=== PATIENT | female | born 1960 | race Caucasian/White ===

== ENCOUNTER 2018-01-25 11:10 | Emergency (ER) | payer OTHER ==
[2018-01-25] MEDS: DIPHTH,PERTUSS(ACELL),TET TOX 0.5 ML DISP.SYRIN. VAX IM (11:41)
[2018-01-25] MEDS: LIDOCAINE WITH 8.4% SOD BICARB 3 ML DISP.SYRIN. INJ (11:42)
[2018-01-25] MEDS: MORPHINE SULFATE 10 MG/ML VIAL. IM (13:06)
== END 2018-01-25 13:55 | disposition home or self-care (01) ==
LOC: ER 11:10
DX: L02.416 Cutaneous abscess of left lower limb (principal); K58.9 Irritable bowel syndrome, unspecified; J44.9 Chronic obstructive pulmonary disease, unspecified; M79.7 Fibromyalgia; G89.29 Other chronic pain; Z88.1 Allergy status to other antibiotic agents; Z88.2 Allergy status to sulfonamides; Z91.040 Latex allergy status
CPT/HCPCS: 10060; 90471; 90715; 96372; 99284-25; J2270

== ENCOUNTER → 2018-01-25 | Outpatient (CLI) | payer OTHER ==
[~2018-01-25] MED LIST: CONTRAST GIVEN. MC
[2018-01-25] MEDS: IOHEXOL 240 MG/ML 50ML VIAL. PO (10:00)
[2018-01-25] MEDS: IOHEXOL 300 MG/ML 100ML VIAL. IV (10:59)
== END | disposition home or self-care (01) ==
LOC: CT 09:41
DX: K43.9 Ventral hernia without obstruction or gangrene (principal); K57.30 Diverticulosis of large intestine without perforation or abscess without bleeding; I70.0 Atherosclerosis of aorta
CPT/HCPCS: 74177; Q9966; Q9967

== ENCOUNTER → 2018-02-05 | Outpatient (CLI) | payer OTHER ==
[2018-02-05 14:12] LABS: ADD MAN DIFF? NO
[2018-02-05 14:17] LABS: BASO # 0.1 x10^3/uL (0.0-0.2); BASO % 1 % (0-3); EOS # 0.2 x10^3/uL (0.0-0.7); EOS % 3 % (0-3); HEMATOCRIT 38.8 % (36.0-47.0); HEMOGLOBIN 13.1 g/dL (12.0-15.5); LYMPH # 1.2 x10^3/uL (1.0-4.8); LYMPH % 18 % (24-48); MEAN CORPUSCULAR HEMOGLOBIN 29 pg (25-35); MEAN CORPUSCULAR HGB CONC 34 g/dL (31-37); MEAN CORPUSCULAR VOLUME 87 fL (79-100); MONO # 0.5 x10^3/uL (0.0-1.1); MONO % 8 % (0-9); NEUT # 4.9 x10^3uL (1.8-7.7); NEUT % 71 % (31-73); PLATELET COUNT 216 x10^3/uL (140-400); RED BLOOD COUNT 4.48 x10^6/uL (3.50-5.40); RED CELL DISTRIBUTION WIDTH 15.5 % (11.5-14.5); WHITE BLOOD COUNT 6.9 x10^3/uL (4.0-11.0)
[2018-02-05 14:44] LABS: ANION GAP 7 (6-14); BLOOD UREA NITROGEN 17 mg/dL (7-20); CARBON DIOXIDE 29 mmol/L (21-32); CHLORIDE 103 mmol/L (98-107); CREATININE 0.8 mg/dL (0.6-1.0); GFR 73.4; GLUCOSE 107 mg/dL (70-99); SODIUM 139 mmol/L (136-145)
== END | disposition home or self-care (01) ==
LOC: SURGPAT 13:32
DX: K43.9 Ventral hernia without obstruction or gangrene (principal)
CPT/HCPCS: 36415; 80048; 85025; 93005

== ENCOUNTER 2018-02-08 06:55 | Day surgery (SDC) | payer OTHER ==
[2018-02-08] MEDS ORDERED: PROCHLORPERAZINE 10 MG/2 ML VIAL. IV (07:00)
[2018-02-08] MEDS ORDERED: MORPHINE SULFATE 2 MG/ML DISP.SYRIN. IV (07:00)
[2018-02-08] MEDS ORDERED: ONDANSETRON PF 4 MG/2 ML VIAL. IV (07:00)
[2018-02-08] MEDS: IV RINGERS,LACTATED 1000ML 1,000 ML IV (07:00)
[2018-02-08] MEDS ORDERED: PROPOFOL 20 ML IV (08:06)
[2018-02-08] MEDS ORDERED: fentaNYL PF VIAL 100 MCG/2 ML VIAL ×3 (08:06→10:55)
[2018-02-08] MEDS ORDERED: ONDANSETRON PF 4 MG/2 ML VIAL. (08:06)
[2018-02-08] MEDS ORDERED: ROCURONIUM 50 MG/5 ML VIAL. ×2 (08:06→09:03)
[2018-02-08] MEDS ORDERED: LIDOCAINE 2% PF Vial for OR 5 ML VIAL. (08:06)
[2018-02-08] MEDS ORDERED: DEXAMETHASONE SOD PHOS 20 MG/5 ML VIAL. (08:06)
[2018-02-08] MEDS: BUPIVACAINE-EPI 0.25%-1:200000 50 ML VIAL. (08:53)
[2018-02-08] MEDS ORDERED: SEVOFLURANE > 120 MINUTES. IH (10:00)
[2018-02-08] MEDS ORDERED: GLYCOPYRROLATE 1 MG/5 ML VIAL. (10:34)
[2018-02-08] MEDS ORDERED: NEOSTIGMINE METHYLSULFATE 5 MG/5 ML SYRINGE. (10:34)
[2018-02-08] MEDS ORDERED: PROCHLORPERAZINE 10 MG/2 ML VIAL. (10:55)
[2018-02-08] MEDS: LIDOCAINE 1% PF 2 ML VIAL. ID (11:23)
[2018-02-08] MEDS: fentaNYL PF VIAL 100 MCG/2 ML VIAL IV ×2 (11:24→12:42)
[2018-02-08] MEDS ORDERED: oxyCODONE/APAP 5/325 1 TAB TABLET PO (11:30)
[2018-02-08] MEDS ORDERED: diphenhydrAMINE 50 MG/ML VIAL (12:02)
[2018-02-08] MEDS: diphenhydrAMINE 50 MG/ML VIAL IVP (12:05)
[2018-02-08] MEDS: oxyCODONE/APAP 5/325 1 TAB TABLET PO (12:41)
== END 2018-02-08 13:50 | disposition home or self-care (01) ==
LOC: SURG 06:55
DX: K43.0 Incisional hernia with obstruction, without gangrene (principal); Z79.899 Other long term (current) drug therapy; Z86.010 Personal history of colon polyps; M06.9 Rheumatoid arthritis, unspecified; J44.9 Chronic obstructive pulmonary disease, unspecified; F32.9 Major depressive disorder, single episode, unspecified; F98.8 Other specified behavioral and emotional disorders with onset usually occurring in childhood and adolescence; M79.7 Fibromyalgia; Z90.710 Acquired absence of both cervix and uterus; Z90.49 Acquired absence of other specified parts of digestive tract; Z98.890 Other specified postprocedural states; Z81.8 Family history of other mental and behavioral disorders; Z82.49 Family history of ischemic heart disease and other diseases of the circulatory system; Z82.0 Family history of epilepsy and other diseases of the nervous system; Z83.49 Family history of other endocrine, nutritional and metabolic diseases; F17.210 Nicotine dependence, cigarettes, uncomplicated; Z88.2 Allergy status to sulfonamides; Z88.1 Allergy status to other antibiotic agents; Z91.040 Latex allergy status; Z87.01 Personal history of pneumonia (recurrent); E66.9 Obesity, unspecified; Z68.41 Body mass index [BMI] 40.0-44.9, adult; K21.9 Gastro-esophageal reflux disease without esophagitis; Z90.79 Acquired absence of other genital organ(s); Z90.721 Acquired absence of ovaries, unilateral; M19.90 Unspecified osteoarthritis, unspecified site; F41.9 Anxiety disorder, unspecified; Z72.89 Other problems related to lifestyle; Z85.828 Personal history of other malignant neoplasm of skin
CPT/HCPCS: 49657; A7015; C1781; J0780; J1100; J1200; J1956; J2405; J2704; J2710; J3010; J3490; J7120

== ENCOUNTER 2018-04-11 08:46 | Emergency (ER) | payer OTHER ==
[~2018-04-11] VITALS: Ht 172.7 cm; Wt 121.1 kg
[~2018-04-11 08:46] MED LIST changes: +BIOT300T PO; +BUDE10.2 IH; +CEPH500T PO; +CETI10TA22 PO; +CHOL10003 PO; -CONTRAST GIVEN. MC; +CYAN100072 PO; +CYCL10TA2 PO; +DEXT30TA2 PO; +FLUO20TA11 PO; +FLUO40CA2 PO; +FURO40TA4 PO; +GABA600T2 PO; +HYDR-971 PO; +MULT1TAB52 PO; +OXYC-323 PO; +PANT20TA2 PO; +POTA10TA12 PO
[2018-04-11] MEDS ORDERED: ASPIRIN 325 MG TABLET PO ONE (09:15)
[2018-04-11] MEDS ORDERED: MORPHINE SULFATE 10 MG/ML VIAL. IV ONE (09:15)
[2018-04-11] MEDS ORDERED: diazePAM 5 MG TABLET PO ONE (09:15)
[2018-04-11 09:32] LABS: CALCIUM 8.7 mg/dL (8.5-10.1); CREATININE 0.9 mg/dL (0.6-1.0); GFR 64.1; POTASSIUM 4.2 mmol/L (3.5-5.1)
[2018-04-11 09:34] LABS: BASO # 0.1 x10^3/uL (0.0-0.2); BASO % 1 % (0-3); EOS # 0.4 x10^3/uL (0.0-0.7); EOS % 5 % (0-3); HEMATOCRIT 36.2 % (36.0-47.0); HEMOGLOBIN 12.5 g/dL (12.0-15.5); LYMPH # 1.7 x10^3/uL (1.0-4.8); LYMPH % 26 % (24-48); MEAN CORPUSCULAR HEMOGLOBIN 30 pg (25-35); MEAN CORPUSCULAR HGB CONC 35 g/dL (31-37); MEAN CORPUSCULAR VOLUME 86 fL (79-100); MONO # 0.8 x10^3/uL (0.0-1.1); MONO % 12 % (0-9); NEUT # 3.7 x10^3uL (1.8-7.7); NEUT % 56 % (31-73); PLATELET COUNT 222 x10^3/uL (140-400); RED CELL DISTRIBUTION WIDTH 15.3 % (11.5-14.5); WHITE BLOOD COUNT 6.5 x10^3/uL (4.0-11.0)
[2018-04-11 09:38] LABS: ALBUMIN 3.6 g/dL (3.4-5.0); MAGNESIUM 1.9 mg/dL (1.8-2.4); TOTAL BILIRUBIN 0.4 mg/dL (0.2-1.0); TOTAL PROTEIN 7.1 g/dL (6.4-8.2)
--- NOTE | 2018-04-11 09:46 | EKG ---
[facility] [address] [place] [address] Test Date: 2018-04-11 Test Time: 08:55:27 Pat Name: АНДРЕЙ HEATH Department: Room: Gender: F [employer]: NINO : 1960 Requested By: WINSTON DOUGLAS Order Number: [id number] Reading MD: Jj Venegas MD Measurements Intervals [place] Rate: 63 P: [place]: QRS: 34 QRSD: 88 T: 26 QT: 426 QTc: 439 Interpretive Statements SR Electronically Signed On 04-12-2018 15:24:34 CDT by Jj Venegas MD
--- NOTE | 2018-04-11 09:57 | RAD ---
EXAM: CHEST 1 VIEW History: Chest pain COMPARISON: 02/08/2015 TECHNIQUE: Single portable radiograph of the chest FINDINGS: The cardiac silhouette is unremarkable. Mild prominent appearing bilateral interstitial lung markings IMPRESSION: Mild prominent appearing bilateral interstitial lung markings likely mild congestive changes or chronic interstitial changes. Electronically signed by: Ricardo Corona MD (04/11/2018 9:53 AM) [id number]
--- NOTE | 2018-04-11 10:02 | RAD ---
Examination: 3 views of the cervical spine and 2 views of the left shoulder HISTORY: History of left-sided neck pain, shoulder pain COMPARISON: None available FINDINGS: Left shoulder: The humerus head is within the glenoid. The acromioclavicular joint grossly appears unremarkable. There is no acute fracture or dislocation identified. Cervical spine: The vertebral body heights are maintained. There is mild 3 mm retrolisthesis of C4 on C5 and 2 mm retrolisthesis of C6 on C7. Small anterior osteophyte formation identified at C3, C4, C5, C6 vertebral levels. There is moderate intervertebral disc height loss identified at C4-C5 vertebral levels. The facets are well aligned. The spinolaminar line is maintained. No evidence of prevertebral soft tissue swelling identified. Impression: 1. No acute osseous findings. 2. Moderate multilevel degenerative changes cervical spine as described above. Electronically signed by: Ricardo Corona MD (04/11/2018 9:58 AM) [id number]
--- NOTE | 2018-04-11 10:33 | PHYS DOC ---
Past Medical History Past Medical History: COPD, Fibromyalgia, IBS, Other Additional Past Medical Histor: CHRONIC BACK PAIN (DDD) Past Surgical History: Cholecystectomy, , Hysterectomy, Other Additional Past Surgical Histo: VASCULAR RIGHT LEG, ABD TUMOR, HERNIA (LOWER ABD) Alcohol Use: Occasionally Drug Use: None Adult General Chief Complaint Chief Complaint: CHEST PAIN [facility] HPI Patient is a 57 year old female with history of COPD, current smoker, fibromyalgia, who presents today complaining of a sharp 7 out of 10 pain around the left shoulder radiating to the neck intermittently for 10 days, patient states the pain began after she started moving items around her house as she is preparing to move to [place] in April. Patient states the pain is worse when she is lifting heavy items. Patient denies anything relieving the pain. Patient denies any actual trauma. She states she took some aspirin and other NSAIDs which helped. Patient denies any chest pain or shortness of breath. Denies any fever. Denies any nausea, vomiting. Denies any cough or congestion. Denies any unilateral leg pain or swelling, denies any use of hormones, denies any recent hospitalization/surgeries/trauma, denies any personal or family history of PEs. Denies any hemoptysis. She states she does not know if her fibromyalgia has gotten into her left shoulder. PCP:HAYES Martínez Review of Systems Review of Systems Constitutional: Denies fever or chills [] Eyes: Denies change in visual acuity, redness, or eye pain [] HENT: Denies nasal congestion or sore throat [] Respiratory: Denies cough or shortness of breath [] Cardiovascular: No additional information not addressed in HPI [] GI: Denies abdominal pain, nausea, vomiting, bloody stools or diarrhea [] : Denies dysuria or hematuria [] Musculoskeletal: Reports left shoulder pain Integument: Denies rash or skin lesions [] Neurologic: Denies headache, focal weakness or sensory changes [] All other systems were reviewed and found to be within normal limits, except as documented in this note. Current Medications Current Medications Current Medications Medications (Trade) Dose Ordered Sig/Peter Start Time Stop Time Status Last Admin Dose Admin Aspirin (Shukri Aspirin) 325 mg 1X ONCE 04/11/18 09:15 04/11/18 09:16 DC 04/11/18 10:36 325 MG Diazepam (Valium) 5 mg 1X ONCE 04/11/18 09:15 04/11/18 09:16 DC 04/11/18 10:36 5 MG Morphine Sulfate (Morphine Sulfate) 5 mg 1X ONCE 04/11/18 09:15 04/11/18 09:16 DC 04/11/18 10:37 5 MG Allergies Allergies Allergies Coded Allergies Type Severity Reaction Last Updated Verified cephalexin Allergy Severe Nausea and Vomiting 02/05/18 Yes Sulfa (Sulfonamide Antibiotics) Allergy Intermediate 02/08/15 No clindamycin Allergy Intermediate 01/25/18 Yes latex Allergy Intermediate 02/08/15 No Physical Exam Physical Exam Constitutional: Well developed, well nourished, no acute distress, non-toxic appearance. [] HENT: Normocephalic, atraumatic, bilateral external ears normal, oropharynx moist, no oral exudates, nose normal. [] Eyes: PERRLA, EOMI, conjunctiva normal, no discharge. [] Neck: Normal range of motion, no tenderness, supple, no stridor. [] Cardiovascular:Heart rate regular rhythm, no murmur [] Lungs & Thorax: Bilateral breath sounds clear to auscultation [] Abdomen: Bowel sounds normal, soft, no tenderness, no masses, no pulsatile masses. [] Skin: Warm, dry, no erythema, no rash. [] Back: No tenderness, no CVA tenderness. [] Extremities: No tenderness, no cyanosis, no clubbing, ROM intact, no edema. Patient's pain seems to be relieved when we raise her left upper extremity above her head. Neurologic: Alert and oriented X 3, normal motor function, normal sensory function, no focal deficits noted. [] Psychologic: Appeared anxious on arrival but settled down when i started talking to her. Current Patient Data Vital Signs Vital Signs Date Time Temp Pulse Resp B/P (MAP) Pulse Ox O2 Delivery O2 Flow Rate FiO2 04/11/18 10:37 18 97 Room Air 04/11/18 08:54 97.6 63 157/91 (113) 97.6 Lab Values Laboratory Tests Test 04/11/18 09:11 White Blood Count 6.5 x10^3/uL (4.0-11.0) Red Blood Count 4.20 x10^6/uL (3.50-5.40) Hemoglobin 12.5 g/dL (12.0-15.5) Hematocrit 36.2 % (36.0-47.0) Mean Corpuscular Volume 86 fL (79-100) Mean Corpuscular Hemoglobin 30 pg (25-35) Mean Corpuscular Hemoglobin Concent 35 g/dL (31-37) Red Cell Distribution Width 15.3 % (11.5-14.5) H Platelet Count 222 x10^3/uL (140-400) Neutrophils (%) (Auto) 56 % (31-73) Lymphocytes (%) (Auto) 26 % (24-48) Monocytes (%) (Auto) 12 % (0-9) H Eosinophils (%) (Auto) 5 % (0-3) H Basophils (%) (Auto) 1 % (0-3) Neutrophils # (Auto) 3.7 x10^3uL (1.8-7.7) Lymphocytes # (Auto) 1.7 x10^3/uL (1.0-4.8) Monocytes # (Auto) 0.8 x10^3/uL (0.0-1.1) Eosinophils # (Auto) 0.4 x10^3/uL (0.0-0.7) Basophils # (Auto) 0.1 x10^3/uL (0.0-0.2) Sodium Level 140 mmol/L (136-145) Potassium Level 4.2 mmol/L (3.5-5.1) Chloride Level 104 mmol/L (98-107) Carbon Dioxide Level 29 mmol/L (21-32) Anion Gap 7 (6-14) Blood Urea Nitrogen 15 mg/dL (7-20) Creatinine 0.9 mg/dL (0.6-1.0) Estimated GFR (Cockcroft-Gault) 64.1 BUN/Creatinine Ratio 17 (6-20) Glucose Level 118 mg/dL (70-99) H Calcium Level 8.7 mg/dL (8.5-10.1) Magnesium Level 1.9 mg/dL (1.8-2.4) Total Bilirubin 0.4 mg/dL (0.2-1.0) Aspartate Amino Transferase (AST) 15 U/L (15-37) Alanine Aminotransferase (ALT) 22 U/L (14-59) Alkaline Phosphatase 77 U/L (46-116) Creatine Kinase 78 U/L (26-192) Creatine Kinase MB (Mass) 0.7 ng/mL (0.0-3.6) Creatine Kinase MB Relative Index 0.9 % (0-4) Troponin I Quantitative < 0.017 ng/mL (0.000-0.055) YV-Gsl-Y-Type Natriuretic Peptide 121 pg/mL (0-124) Total Protein 7.1 g/dL (6.4-8.2) Albumin 3.6 g/dL (3.4-5.0) Albumin/Globulin Ratio 1.0 (1.0-1.7) Thyroid Stimulating Hormone (TSH) 1.942 uIU/mL (0.358-3.74) Ethyl Alcohol Level < 10 mg/dL (0-10) Laboratory Tests 04/11/18 09:11 Laboratory Tests 04/11/18 09:11 EKG EKG 08:[address] Lopez sinus rhythm heart rate 63 no STEMI Radiology/Procedures Radiology/Procedures []PROCEDURE: SHOULDER 2+V LEFT Examination: 3 views of the cervical spine and 2 views of the left shoulder HISTORY: History of left-sided neck pain, shoulder pain COMPARISON: None available FINDINGS: Left shoulder: The humerus head is within the glenoid. The acromioclavicular joint grossly appears unremarkable. There is no acute fracture or dislocation identified. Cervical spine: The vertebral body heights are maintained. There is mild 3 mm retrolisthesis of C4 on C5 and 2 mm retrolisthesis of C6 on C7. Small anterior osteophyte formation identified at C3, C4, C5, C6 vertebral levels. There is moderate intervertebral disc height loss identified at C4-C5 vertebral levels. The facets are well aligned. The spinolaminar line is maintained. No evidence of prevertebral soft tissue swelling identified. Impression: 1. No acute osseous findings. 2. Moderate multilevel degenerative changes cervical spine as described above. Electronically signed by: Ricardo Corona MD (04/11/2018 9:58 AM) [id number] DICTATED and SIGNED BY: RICARDO CORONA MD DATE: 04/11/18 0954 PROCEDURE: PORTABLE CHEST 1V EXAM: CHEST 1 VIEW History: Chest pain COMPARISON: 02/08/2015 TECHNIQUE: Single portable radiograph of the chest FINDINGS: The cardiac silhouette is unremarkable. Mild prominent appearing bilateral interstitial lung markings IMPRESSION: Mild prominent appearing bilateral interstitial lung markings likely mild congestive changes or chronic interstitial changes. Electronically signed by: Ricardo Corona MD (04/11/2018 9:53 AM) [id number] DICTATED and SIGNED BY: RICARDO CORONA MD DATE: 04/11/18 0952 Course & Med Decision Making Course & Med Decision Making Pertinent Labs and Imaging studies reviewed. (See chart for details) This is a 57-year-old female patient presenting to the ED today complaining of left shoulder pain, no known injury, patient has been moving. Patient's cardiac workup as well as Reglan labs are negative for any acute findings, left shoulder x-ray, chest x-rays were negative for any acute findings, cervical spine x-ray was negative for any acute findings, noted for DJD of the cervical spine. Pain appears musculoskeletal. Heart score is 1. Patient was encouraged to consider smoking cessation. Patient was discharged with instructions to follow-up with her own PCP. Discharged with diclofenac, Valium, and Medrol Dosepak. Dragon Disclaimer Dragon Disclaimer This electronic medical record was generated, in whole or in part, using a voice recognition dictation system. Departure Departure Impression: Primary Impression: DJD (degenerative joint disease) of cervical spine Additional Impressions: Neck pain Left shoulder pain Smoking addiction Disposition: 01 HOME, SELF-CARE Condition: STABLE Referrals: RADHA MARTÍNEZ (PCP) Follow-up in the next 7 days Patient Instructions: Arthritis, Degenerative-Brief, Shoulder Pain, Easy-to- Read, Smoking Cessation Additional Instructions: You were evaluated in the emergency room and noted to have arthritis in your neck. Please follow-up with your primary care doctor. Your work up in the emergency room was negative for any acute findings. Take the prescribed medications as ordered. Come back to the emergency room at any point symptoms worsen. Please consider smoking cessation. Scripts Diclofenac Sodium (DICLOFENAC SODIUM) 50 Mg Tablet.dr 1 TAB PO BID, #20 TAB 0 Refills Prov: [employer] 04/11/18 Methylprednisolone (MEDROL) 4 Mg Tab.ds.pk 1 PKG PO UD, #1 PKG Prov: [employer] 04/11/18 Diazepam (VALIUM) 5 Mg Tablet 5 MG PO TID, #15 TAB Prov: [employer] 04/11/18 Problem Qualifiers Primary Impression: DJD (degenerative joint disease) of cervical spine Spinal osteoarthritis complication: unspecified spinal osteoarthritis Qualified Codes: M47.812 - Spondylosis without myelopathy or radiculopathy, cervical region Additional Impressions: Left shoulder pain Chronicity: acute Qualified Codes: M25.512 - Pain in left shoulder WINSTON DOUGLAS APRN Apr 11, 2018 10:33
[2018-04-11] MEDS ORDERED: DICL50TA4 PO (10:46)
[2018-04-11] MEDS ORDERED: DIAZ5TAB PO (10:46)
[2018-04-11] MEDS ORDERED: METH4TAB2 PO (10:46)
[2018-04-11 10:58] LABS: BILIRUBIN,URINE NEGATIVE (NEG); CLARITY,URINE CLEAR; COLOR,URINE YELLOW; NITRITE,URINE NEGATIVE (NEG); PROTEIN,URINE NEGATIVE (NEG-TRACE); UROBILINOGEN,URINE 0.2 mg/dL (0.2 mg/dL)
[2018-04-11 11:00] VITALS: BP 184/135
[2018-04-11 11:05] LABS: AMPHETAMINE/METHAMPHETAMINE POS (NEG); BARBITURATES NEG (NEG); BENZODIAZEPINES NEG (NEG); CANNABINOIDS NEG (NEG); COCAINE NEG (NEG); METHADONE NEG (NEG); OPIATES NEG (NEG); PHENCYCLIDINE NEG (NEG)
[2018-04-11 11:19] LABS: BACTERIA,URINE 0 /HPF (0-FEW); RBC,URINE 0 /HPF (0-2); SQUAMOUS EPITHELIAL CELL,UR MOD /LPF
== END 2018-04-11 11:15 | disposition home or self-care (01) ==
LOC: ER 08:46
DX: M47.892 Other spondylosis, cervical region (principal); M25.512 Pain in left shoulder; F17.200 Nicotine dependence, unspecified, uncomplicated; J44.9 Chronic obstructive pulmonary disease, unspecified; Z90.49 Acquired absence of other specified parts of digestive tract; Z90.710 Acquired absence of both cervix and uterus; Z98.890 Other specified postprocedural states; Z88.2 Allergy status to sulfonamides; Z88.1 Allergy status to other antibiotic agents; Z91.040 Latex allergy status
CPT/HCPCS: 36415; 71045; 72040; 73030; 80053; 80307; 81001; 82553; 83735; 83880; 84443; 84484; 85025; 87086; 93005; 96374; 99285; G0480; J2270; G0479

== ENCOUNTER 2018-12-28 13:39 | Inpatient (IN) | payer OTHER ==
[~2018-12-28] VITALS: Ht 172.7 cm; Wt 117.7 kg
[~2018-12-28 13:39] MED LIST changes: -BIOT300T PO; +BIOT300T4 PO; +DIAZ5TAB PO; +DICL50TA4 PO; -GABA600T2 PO; +GABA600T7 PO; +HYDR-3164 PO; -HYDR-971 PO; +METH4TAB2 PO; -OXYC-323 PO; +OXYC1TAB15 PO
[2018-12-28] MEDS ORDERED: IV NORMAL SALINE 1000ML BAG 1,000 ML IV SCH (14:24)
[2018-12-28] MEDS ORDERED: ONDANSETRON PF 4 MG/2 ML VIAL. IV ONE (14:30)
--- NOTE | 2018-12-28 14:31 | PHYS DOC ---
Past Medical History Past Medical History: COPD, Fibromyalgia, IBS, Other Additional Past Medical Histor: CHRONIC BACK PAIN (DDD) Past Surgical History: Cholecystectomy, , Hysterectomy, Other Additional Past Surgical Histo: VASCULAR RIGHT LEG, ABD TUMOR, HERNIA (LOWER ABD) Alcohol Use: Occasionally Drug Use: None Adult General Chief Complaint Chief Complaint: CONSTIPATION HPI HPI Patient is a 58-year-old female who presents with complaint of lower abdominal pain and constipation. Patient states that she has not had a normal bowel movement for 2 weeks and states that she is not been really passing any gas. She states that she was able to pass a small amount of stool today because she is been taking numerous medications to soften her stools. She states that yesterday when she was in the store she had a syncopal episode. She denies any chest pain or shortness of breath. She does complain of lower abdominal pain that she describes as stabbing, feeling like it stems from her suprapubic region down into her rectum. She rates pain currently at an 8 out of 10 and states that at times it goes up to a 10 out of 10. She admits to nausea but has had no vomiting . Review of Systems Review of Systems Constitutional: Denies fever or chills [] Respiratory: Denies cough or shortness of breath [] Cardiovascular: No additional information not addressed in HPI [] GI: Complains of abdominal pain with nausea. Denies vomiting or diarrhea [] : Positive urinary urgency and mild dysuria[] Neurologic: Denies headache, focal weakness or sensory changes [] All other systems were reviewed and found to be within normal limits, except as documented in this note. Current Medications Current Medications Current Medications Medications (Trade) Dose Ordered Sig/Peter Start Time Stop Time Status Last Admin Dose Admin Ciprofloxacin/ Dextrose 200 ml @ 200 mls/hr 1X ONCE 12/28/18 16:15 12/28/18 17:14 Fentanyl Citrate (Fentanyl 2ml Vial) 50 mcg PRN Q15MIN PRN 12/28/18 14:30 12/29/18 14:29 12/28/18 14:40 50 MCG Info (CONTRAST GIVEN -- Rx MONITORING) 1 each PRN DAILY PRN 12/28/18 14:45 12/30/18 14:44 Iohexol (Omnipaque 300 Mg/ml) 75 ml 1X ONCE 12/28/18 14:45 12/28/18 14:46 DC 12/28/18 15:29 75 ML Metronidazole 100 ml @ 100 mls/hr 1X ONCE 12/28/18 16:15 12/28/18 17:14 Ondansetron HCl (Zofran) 4 mg 1X ONCE 12/28/18 14:30 12/28/18 14:31 DC 12/28/18 14:39 4 MG Sodium Chloride 1,000 ml @ 1,000 mls/hr Q1H 12/28/18 14:24 12/28/18 15:23 DC 12/28/18 14:37 1,000 MLS/HR Allergies Allergies Allergies Coded Allergies Type Severity Reaction Last Updated Verified cephalexin Allergy Severe Nausea and Vomiting 02/05/18 Yes Sulfa (Sulfonamide Antibiotics) Allergy Intermediate 02/08/15 No clindamycin Allergy Intermediate 01/25/18 Yes latex Allergy Intermediate 02/08/15 No Physical Exam Physical Exam Constitutional: Well developed, well nourished, no acute distress, non-toxic appearance. [] HENT: Normocephalic, atraumatic, bilateral external ears normal, oropharynx moist, no oral exudates, nose normal. [] Eyes: PERRLA, EOMI, conjunctiva normal, no discharge. [] Neck: Normal range of motion, no tenderness, supple, no stridor. [] Cardiovascular: Regular rate and rhythm[] Lungs & Thorax: Bilateral breath sounds clear to auscultation [] Abdomen: Bowel sounds normal, soft, with lower abdominal tenderness. [] Skin: Warm, dry, no erythema, no rash. [] Extremities: No tenderness, no cyanosis, no clubbing, ROM intact. [] Neurologic: Alert and oriented X 3, no focal deficits noted. [] Current Patient Data Vital Signs Vital Signs Date Time Temp Pulse Resp B/P (MAP) Pulse Ox O2 Delivery O2 Flow Rate FiO2 12/28/18 14:40 20 95 Room Air 12/28/18 14:00 98.7 86 151/76 (101) 98.7 Lab Values Laboratory Tests Test 12/28/18 14:00 12/28/18 14:30 Urine Collection Type Unknown Urine Color Yellow Urine Clarity Clear Urine pH 6.0 Urine Specific [place] 1.010 Urine Protein Negative mg/dL (NEG-TRACE) Urine Glucose (UA) Negative mg/dL (NEG) Urine Ketones (Stick) Negative mg/dL (NEG) Urine Blood Negative (NEG) Urine Nitrite Negative (NEG) Urine Bilirubin Negative (NEG) Urine Urobilinogen Dipstick 1.0 mg/dL (0.2 mg/dL) Urine Leukocyte Esterase Moderate (NEG) Urine RBC 0 /HPF (0-2) Urine WBC 5-10 /HPF (0-4) Urine Squamous Epithelial Cells Mod /LPF Urine Bacteria Few /HPF (0-FEW) White Blood Count 11.6 x10^3/uL (4.0-11.0) H Red Blood Count 3.90 x10^6/uL (3.50-5.40) Hemoglobin 11.6 g/dL (12.0-15.5) L Hematocrit 33.4 % (36.0-47.0) L Mean Corpuscular Volume 86 fL (79-100) Mean Corpuscular Hemoglobin 30 pg (25-35) Mean Corpuscular Hemoglobin Concent 35 g/dL (31-37) Red Cell Distribution Width 14.4 % (11.5-14.5) Platelet Count 272 x10^3/uL (140-400) Neutrophils (%) (Auto) 74 % (31-73) H Lymphocytes (%) (Auto) 14 % (24-48) L Monocytes (%) (Auto) 11 % (0-9) H Eosinophils (%) (Auto) 2 % (0-3) Basophils (%) (Auto) 1 % (0-3) Neutrophils # (Auto) 8.5 x10^3uL (1.8-7.7) H Lymphocytes # (Auto) 1.6 x10^3/uL (1.0-4.8) Monocytes # (Auto) 1.2 x10^3/uL (0.0-1.1) H Eosinophils # (Auto) 0.2 x10^3/uL (0.0-0.7) Basophils # (Auto) 0.1 x10^3/uL (0.0-0.2) Sodium Level 132 mmol/L (136-145) L Potassium Level 3.5 mmol/L (3.5-5.1) Chloride Level 95 mmol/L (98-107) L Carbon Dioxide Level 27 mmol/L (21-32) Anion Gap 10 (6-14) Blood Urea Nitrogen 10 mg/dL (7-20) Creatinine 0.9 mg/dL (0.6-1.0) Estimated GFR (Cockcroft-Gault) 63.9 BUN/Creatinine Ratio 11 (6-20) Glucose Level 123 mg/dL (70-99) H Calcium Level 8.5 mg/dL (8.5-10.1) Total Bilirubin 0.8 mg/dL (0.2-1.0) Aspartate Amino Transferase (AST) 25 U/L (15-37) Alanine Aminotransferase (ALT) 30 U/L (14-59) Alkaline Phosphatase 104 U/L (46-116) Total Protein 7.3 g/dL (6.4-8.2) Albumin 3.2 g/dL (3.4-5.0) L Albumin/Globulin Ratio 0.8 (1.0-1.7) L Lipase 70 U/L (73-393) L Laboratory Tests 12/28/18 14:30 Laboratory Tests 12/28/18 14:30 EKG EKG [] Radiology/Procedures Radiology/Procedures [] Impressions: PROCEDURE: CT ABD PELV W/ IV CONTRST ONLY CT of the abdomen and pelvis with contrast, 12/28/2018: HISTORY: Lower abdominal pain Multidetector CT imaging was performed following an IV bolus injection of iodinated contrast material. No oral contrast material was administered for this study. Comparison is made to an exam from 01/25/2018. The gallbladder is surgically absent. No hepatic abnormality is seen. The pancreas shows no abnormality. The spleen is of normal size. The right kidney is malrotated. There is a moderate sized cyst arising from the lower pole the right kidney. The left renal pelvis and proximal left ureter are mildly prominent compared to the previous study. This is probably related to extrinsic compression by the left lower quadrant inflammatory process, to be described. Aortic calcific plaquing is present without evidence of aneurysm. Several small periaortic lymph nodes are noted without evidence of pathologic enlargement. The uterus is surgically absent. Sigmoid diverticula are present. There is severe mural thickening involving the proximal to mid sigmoid colon. There is moderate adjacent streaky increased density in the paracolic fat compatible with inflammation. The findings suggest acute diverticulitis. A discrete drainable paracolic abscess is not visible. There is a moderate amount of gas and stool in the colon proximal to this level. There are surgical sutures related to the colon in the hepatic flexure region. The small bowel loops are not dilated. No free fluid or free air is evident in the abdomen or pelvis. There has been interval surgical repair of the large ventral hernia seen on 01/25/2018. A surgical mesh is in place. There is residual anterior bulging of the fascia along the superior aspect of the mesh. Streaky increased density in the subcutaneous soft tissues at this level is compatible with scarring. There is a moderate thoracolumbar scoliosis with moderate associated multilevel degenerative change. IMPRESSION: 1. Sigmoid diverticulosis with extensive mural thickening and paracolic inflammation related to the proximal to mid sigmoid colon, compatible with acute diverticulitis. The possibility of underlying colonic neoplasm cannot be excluded. 2. Interval repair of the patient's large ventral hernia since 01/25/2018. PQRS Compliance Statement: One or more of the following individualized dose reduction techniques were utilized for this examination: 1. Automated exposure control 2. Adjustment of the mA and/or kV according to patient size 3. Use of iterative reconstruction technique Electronically signed by: Jose Contreras MD (12/28/2018 4:03 PM) [facility] Course & Med Decision Making Course & Med Decision Making Pertinent Labs and Imaging studies reviewed. (See chart for details) [] Dragon Disclaimer Dragon Disclaimer This electronic medical record was generated, in whole or in part, using a voice recognition dictation system. Departure Departure Impression: Primary Impression: Acute diverticulitis Additional Impression: Urinary tract infection Disposition: 09 ADMITTED INPATIENT Admitting Physician: Adan Landis Condition: IMPROVED Referrals: RADHA MARTÍNEZ (PCP) Problem Qualifiers Additional Impression: Urinary tract infection Urinary tract infection type: site unspecified Hematuria presence: without hematuria Qualified Codes: N39.0 - Urinary tract infection, site not specified CADY MONTEIRO Jr. DO December 28, 2018 14:31
[2018-12-28 14:35] LABS: BILIRUBIN,URINE NEGATIVE (NEG); CLARITY,URINE CLEAR; COLOR,URINE YELLOW; NITRITE,URINE NEGATIVE (NEG); PROTEIN,URINE NEGATIVE (NEG-TRACE)
[2018-12-28 14:38] LABS: BASO # 0.1 x10^3/uL (0.0-0.2); BASO % 1 % (0-3); EOS # 0.2 x10^3/uL (0.0-0.7); EOS % 2 % (0-3); HEMATOCRIT 33.4 % (36.0-47.0); HEMOGLOBIN 11.6 g/dL (12.0-15.5); LYMPH # 1.6 x10^3/uL (1.0-4.8); LYMPH % 14 % (24-48); MEAN CORPUSCULAR HEMOGLOBIN 30 pg (25-35); MEAN CORPUSCULAR HGB CONC 35 g/dL (31-37); MEAN CORPUSCULAR VOLUME 86 fL (79-100); MONO # 1.2 x10^3/uL (0.0-1.1); MONO % 11 % (0-9); NEUT # 8.5 x10^3uL (1.8-7.7); NEUT % 74 % (31-73); PLATELET COUNT 272 x10^3/uL (140-400); RED CELL DISTRIBUTION WIDTH 14.4 % (11.5-14.5); WHITE BLOOD COUNT 11.6 x10^3/uL (4.0-11.0)
[2018-12-28] MEDS: fentaNYL PF VIAL 100 MCG/2 ML VIAL IV PRN ×2 (14:40→16:22)
[2018-12-28 14:43] LABS: BACTERIA,URINE FEW /HPF (0-FEW); RBC,URINE 0 /HPF (0-2); SQUAMOUS EPITHELIAL CELL,UR MOD /LPF
[2018-12-28] MEDS ORDERED: IOHEXOL 300 MG/ML 100ML VIAL. IV ONE (14:45)
[2018-12-28] MEDS ORDERED: CONTRAST GIVEN. MC PRN (14:45)
[2018-12-28 14:55] LABS: CALCIUM 8.5 mg/dL (8.5-10.1); CREATININE 0.9 mg/dL (0.6-1.0); GFR 63.9; POTASSIUM 3.5 mmol/L (3.5-5.1)
[2018-12-28 15:02] LABS: ALBUMIN 3.2 g/dL (3.4-5.0); ALBUMIN/GLOBULIN RATIO 0.8 (1.0-1.7); TOTAL BILIRUBIN 0.8 mg/dL (0.2-1.0); TOTAL PROTEIN 7.3 g/dL (6.4-8.2)
--- NOTE | 2018-12-28 16:07 | RAD ---
CT of the abdomen and pelvis with contrast, 12/28/2018: HISTORY: Lower abdominal pain Multidetector CT imaging was performed following an IV bolus injection of iodinated contrast material. No oral contrast material was administered for this study. Comparison is made to an exam from 01/25/2018. The gallbladder is surgically absent. No hepatic abnormality is seen. The pancreas shows no abnormality. The spleen is of normal size. The right kidney is malrotated. There is a moderate sized cyst arising from the lower pole the right kidney. The left renal pelvis and proximal left ureter are mildly prominent compared to the previous study. This is probably related to extrinsic compression by the left lower quadrant inflammatory process, to be described. Aortic calcific plaquing is present without evidence of aneurysm. Several small periaortic lymph nodes are noted without evidence of pathologic enlargement. The uterus is surgically absent. Sigmoid diverticula are present. There is severe mural thickening involving the proximal to mid sigmoid colon. There is moderate adjacent streaky increased density in the paracolic fat compatible with inflammation. The findings suggest acute diverticulitis. A discrete drainable paracolic abscess is not visible. There is a moderate amount of gas and stool in the colon proximal to this level. There are surgical sutures related to the colon in the hepatic flexure region. The small bowel loops are not dilated. No free fluid or free air is evident in the abdomen or pelvis. There has been interval surgical repair of the large ventral hernia seen on 01/25/2018. A surgical mesh is in place. There is residual anterior bulging of the fascia along the superior aspect of the mesh. Streaky increased density in the subcutaneous soft tissues at this level is compatible with scarring. There is a moderate thoracolumbar scoliosis with moderate associated multilevel degenerative change. IMPRESSION: 1. Sigmoid diverticulosis with extensive mural thickening and paracolic inflammation related to the proximal to mid sigmoid colon, compatible with acute diverticulitis. The possibility of underlying colonic neoplasm cannot be excluded. 2. Interval repair of the patient's large ventral hernia since 01/25/2018. PQRS Compliance Statement: One or more of the following individualized dose reduction techniques were utilized for this examination: 1. Automated exposure control 2. Adjustment of the mA and/or kV according to patient size 3. Use of iterative reconstruction technique Electronically signed by: Jose Contreras MD (12/28/2018 4:03 PM) [facility]
[2018-12-28] MEDS ORDERED: CIPROFLOXACIN 400MG PREMIX 200 ML IV ONE (16:15)
[2018-12-28] MEDS ORDERED: ACETAMINOPHEN 325 MG TABLET. PO PRN (16:30)
[2018-12-28] MEDS ORDERED: ONDANSETRON PF 4 MG/2 ML VIAL. IV PRN ×2 (16:30→19:30)
[2018-12-28] MEDS: IV NORMAL SALINE 1000ML BAG 1,000 ML IV SCH (17:21)
[2018-12-28] MEDS: MORPHINE SULFATE 4 MG/ML VIAL. IV PRN ×3 (18:08→23:13)
[2018-12-28 19:00] VITALS: BP 106/55
--- NOTE | 2018-12-28 19:10 | NUR ---
The patient, АНДРЕЙ HEATH, 58 y/o, F admitted by ETHAN CARR MD, was given written information regarding hospital policies, unit procedures and contact persons. Valuables were checked and left with her.
--- NOTE | 2018-12-28 19:18 | PDOC1 ---
History and Physical Date of Admission Date of Admission DATE: 12/28/18 TIME: 19:17 Identification/Chief Complaint Chief Complaint SEEN IN ER, 58-year-old female who presents with complaint of lower abdominal pain and constipation. Patient states that she has not had a normal bowel movement for 2 weeks and states that she is not been really passing any gas. She states that she was able to pass a small amount of stool today because she is been taking numerous medications to soften her stools. She states that yesterday when she was in the store she had a syncopal episode. She denies any chest pain or shortness of breath. She does complain of lower abdominal pain that she describes as stabbing, feeling like it stems from her suprapubic region down into her rectum. C/T C/W ACUTE DIVERTICULITIS rates pain currently at an 8 out of 10 and states that at times it goes up to a 10 out of 10. She admits to nausea but has had no vomiting. Past Medical History Past Medical History Past Medical History Past Medical History: COPD, Fibromyalgia, IBS, Other Additional Past Medical Histor: CHRONIC BACK PAIN (DDD) Past Surgical History: Cholecystectomy, , Hysterectomy, Other Additional Past Surgical Histo: VASCULAR RIGHT LEG, ABD TUMOR, HERNIA (LOWER ABD) Alcohol Use: Occasionally Drug Use: None SMOKES LIGHTLY FHX OBESITY POS Rheumatologic: Fibromyalgia Infectious disease: No pertinent hx Past Surgical History Past Surgical History: Other Family History Family History: High Cholestrol, Hypertension Social History Smoke: <1 pack per day ALCOHOL: occassional Drugs: None Current Problem List Problem List Problems Medical Problems: (1) Acute diverticulitis Status: Acute (2) Urinary tract infection Status: Acute Current Medications Current Medications Current Medications Fentanyl Citrate (Fentanyl 2ml Vial) 50 mcg PRN Q15MIN PRN IV PAIN GREATER THAN 3/10 Last administered on 12/28/18at 16:22; Start 12/28/18 at 14:30; Stop 12/29/18 at 14:29 Sodium Chloride 1,000 ml @ 1,000 mls/hr Q1H IV Last administered on 12/28/18at 14:37; Start 12/28/18 at 14:24; Stop 12/28/18 at 15:23; Status DC Ondansetron HCl (Zofran) 4 mg 1X ONCE IV Last administered on 12/28/18at 14:39; Start 12/28/18 at 14:30; Stop 12/28/18 at 14:31; Status DC Iohexol (Omnipaque 300 Mg/ml) 75 ml 1X ONCE IV Last administered on 12/28/18 15:29; Start 12/28/18 at 14:45; Stop 12/28/18 at 14:46; Status DC Info (CONTRAST GIVEN -- Rx MONITORING) 1 each PRN DAILY PRN MC SEE COMMENTS; Start 12/28/18 at 14:45; Stop 12/30/18 at 14:44 Ciprofloxacin/ Dextrose 200 ml @ 200 mls/hr 1X ONCE IV Last administered on 12/28/18at 16:24; Start 12/28/18 at 16:15; Stop 12/28/18 at 17:14; Status DC Metronidazole 100 ml @ 100 mls/hr 1X ONCE IV Last administered on 12/28/18 16:27; Start 12/28/18 at 16:15; Stop 12/28/18 at 17:14; Status DC Ondansetron HCl (Zofran) 4 mg PRN Q8HRS PRN IV NAUSEA/VOMITING; Start 12/28/18 at 16:30; Stop 12/29/18 at 16:29 Morphine Sulfate (Morphine Sulfate) 4 mg PRN Q2HR PRN IV PAIN Last administered on 12/28/18 18:08; Start 12/28/18 at 16:30; Stop 12/29/18 at 16:29 Sodium Chloride 1,000 ml @ 125 mls/hr Q8H IV Last administered on 12/28/18 17:21; Start 12/28/18 at 16:30; Stop 12/29/18 at 16:29 Acetaminophen (Tylenol) 650 mg PRN Q4HRS PRN PO FEVER; Start 12/28/18 at 16:30; Stop 12/29/18 at 16:29 Active Scripts Active Diclofenac Sodium 50 Mg Tablet.dr 1 Tab PO BID Medrol (Methylprednisolone) 4 Mg Tab.ds.pk 1 Pkg PO UD Valium (Diazepam) 5 Mg Tablet 5 Mg PO TID Reported Percocet 5-325 Mg Tablet (Oxycodone/Acetaminophen) 1 Each Tablet 1-2 Tab PO Q4HRS Potassium Chloride 10 Meq Tablet.er 10 Meq PO DAILY Multivitamins (Multivitamin) 1 Each Tablet 1 Tab PO DAILY Zyrtec (Cetirizine Hcl) 10 Mg Tablet 1 Tab PO DAILY Protonix (Pantoprazole Sodium) 20 Mg Tablet.dr 40 Mg PO DAILY Gabapentin 600 Mg Tablet 600 Mg PO TID Furosemide 40 Mg Tablet 1 Tab PO DAILY Fluoxetine Hcl 40 Mg Capsule 1 Cap PO DAILYWBKFT Fluoxetine Hcl 20 Mg Tablet 1 Tab PO DAILY Cyclobenzaprine Hcl 10 Mg Tablet 1 Tab PO TID B-12 (Cyanocobalamin (Vitamin B-12)) 1,000 Mcg Tablet 1,000 Mcg PO Vitamin D3 (Cholecalciferol (Vitamin D3)) 1,000 Unit Tablet 1 Tab PO DAILY Symbicort 160-4.5 Mcg Inhaler (Budesonide/Formoterol Fumarate) 10.2 Gm Hfa.aer.ad 2 Puff IH BID Biotin 300 Mcg Tablet 500 Mcg PO Adderall 30 Mg Tablet (Dextroamphetamine/Amphetamine) 30 Mg Tablet 30 Mg PO DAILY16 Adderall 30 Mg Tablet (Dextroamphetamine/Amphetamine) 30 Mg Tablet 60 Mg PO DAILY08 Allergies Allergies: Coded Allergies: cephalexin (Verified Allergy, Severe, Nausea and Vomiting, 02/05/18) Sulfa (Sulfonamide Antibiotics) (Unverified Allergy, Intermediate, 02/08/15) clindamycin (Verified Allergy, Intermediate, 01/25/18) latex (Unverified Allergy, Intermediate, 02/08/15) ROS Review of System Review of Systems Review of Systems Constitutional: Denies fever or chills [] Respiratory: Denies cough or shortness of breath [] Cardiovascular: No additional information not addressed in HPI [] GI: Complains of abdominal pain with nausea. Denies vomiting or diarrhea [] : Positive urinary urgency and mild dysuria[] Neurologic: Denies headache, focal weakness or sensory changes [] 14 PT systems were reviewed and found to be within normal limits, except as documented General: YES: Chills PSYCHOLOGICAL ROS: No: Anxiety, Behavioral Disorder, Concentration difficultie, Decreased libido, Depression, Disorientation, Hallucinations, Hostility, Irritablity, Memory difficulties, Mood Swings, Obsessive thoughts, Physical abuse, Sexual abuse, Sleep disturbances, Suicidal ideation, Other ALLERGY AND IMMUNOLOGY: No: Hives, Insect Bite Sensitivity, Itchy/Watery Eyes, Nasal Congestion, Post Nasal Drip, Seasonal Allergies, Other Hematological and Lymphatic: No: Bleeding Problems, Blood Clots, Blood Tr ansfusions, Brusing, Night Sweats, Pallor, Swollen Lymph Nodes, Other ENDOCRINE: No: Breast Changes, Galactorrhea, Hair Pattern Changes, Hot Flashes, Malaise/lethargy, Mood Swings, Palpitations, Polydipsia/polyuria, Skin Changes, Temperature Intolerance, Unexpected Weight Changes, Other Breast: No New/Changing Breast Lumps, No Nipple changes, No Nipple discharge, No Other Respiratory: No: Cough, Hemoptysis, Orthopnea, Pleuritic Pain, Shortness of breath, SOB with excertion, Sputum Changes, Stridor, Tachypnea, Wheezing, Other Gastrointestinal: Yes Abdominal Pain; No Nausea, No Vomiting, No Diarrhea, No Constipation, No Melena, No Hematochezia, No Other Neurological: No Behavorial Changes, No Bowel/Bladder ControlChng, No Confusion, No Dizziness, No Gait Disturbance, No Headaches, No Impaired Coord/balance, No Memory Loss, No Numbness/Tingling, No Seizures, No Speech Problems, No Tremors, No Visual Changes, No Weakness, No Other Skin: No Dry Skin, No Eczema, No Hair Changes, No Lumps, No Mole Changes, No Mottling, No Nail Changes, No Pruritus, No Rash, No Skin Lesion Changes, No Other, No Acne Physical Exam Physical Exam Physical Exam Physical Exam Constitutional: Well developed, well nourished, MILD acute distress, non-toxic appearance. [] HENT: Normocephalic, atraumatic, bilateral external ears normal, oropharynx moist, no oral exudates, nose normal. [] Eyes: PERRLA, EOMI, conjunctiva normal, no discharge. [] Neck: Normal range of motion, no tenderness, supple, no stridor. [] Cardiovascular: Regular rate and rhythm[] Lungs & Thorax: Bilateral breath sounds clear to auscultation [] Abdomen: Bowel sounds normal, soft, with lower abdominal tenderness. [] Skin: Warm, dry, no erythema, no rash. [] Extremities: No tenderness, no cyanosis, no clubbing, ROM intact. [] Neurologic: Alert and oriented X 3, no focal deficits noted. [] General: Alert, Oriented X3, Cooperative, mild distress HEENT: Atraumatic, PERRLA, EOMI, Mucous membr. moist/pink Lungs: Clear to auscultation, Normal air movement Heart: RRR, no thrills Breasts: Not examined Abdomen: Normal bowel sounds, Soft Rectal Exam: not examined Extremities: No cyanosis Neuro: Normal speech, Cranial nerves 3-12 NL Psych/Mental Status: Mental status NL, Mood NL Vitals Vitals Vital Signs Date Time Temp Pulse Resp B/P (MAP) Pulse Ox O2 Delivery O2 Flow Rate FiO2 12/28/18 18:08 16 Room Air 12/28/18 17:22 93 12/28/18 17:03 66 124/66 (85) 2.0 12/28/18 14:00 98.7 98.7 Labs Labs Laboratory Tests Test 12/28/18 14:00 12/28/18 14:30 Urine Collection Type Unknown Urine Color Yellow Urine Clarity Clear Urine pH 6.0 Urine Specific [place] 1.010 Urine Protein Negative mg/dL (NEG-TRACE) Urine Glucose (UA) Negative mg/dL (NEG) Urine Ketones (Stick) Negative mg/dL (NEG) Urine Blood Negative (NEG) Urine Nitrite Negative (NEG) Urine Bilirubin Negative (NEG) Urine Urobilinogen Dipstick 1.0 mg/dL (0.2 mg/dL) Urine Leukocyte Esterase Moderate (NEG) Urine RBC 0 /HPF (0-2) Urine WBC 5-10 /HPF (0-4) Urine Squamous Epithelial Cells Mod /LPF Urine Bacteria Few /HPF (0-FEW) White Blood Count 11.6 x10^3/uL (4.0-11.0) Red Blood Count 3.90 x10^6/uL (3.50-5.40) Hemoglobin 11.6 g/dL (12.0-15.5) Hematocrit 33.4 % (36.0-47.0) Mean Corpuscular Volume 86 fL (79-100) Mean Corpuscular Hemoglobin 30 pg (25-35) Mean Corpuscular Hemoglobin Concent 35 g/dL (31-37) Red Cell Distribution Width 14.4 % (11.5-14.5) Platelet Count 272 x10^3/uL (140-400) Neutrophils (%) (Auto) 74 % (31-73) Lymphocytes (%) (Auto) 14 % (24-48) Monocytes (%) (Auto) 11 % (0-9) Eosinophils (%) (Auto) 2 % (0-3) Basophils (%) (Auto) 1 % (0-3) Neutrophils # (Auto) 8.5 x10^3uL (1.8-7.7) Lymphocytes # (Auto) 1.6 x10^3/uL (1.0-4.8) Monocytes # (Auto) 1.2 x10^3/uL (0.0-1.1) Eosinophils # (Auto) 0.2 x10^3/uL (0.0-0.7) Basophils # (Auto) 0.1 x10^3/uL (0.0-0.2) Sodium Level 132 mmol/L (136-145) Potassium Level 3.5 mmol/L (3.5-5.1) Chloride Level 95 mmol/L (98-107) Carbon Dioxide Level 27 mmol/L (21-32) Anion Gap 10 (6-14) Blood Urea Nitrogen 10 mg/dL (7-20) Creatinine 0.9 mg/dL (0.6-1.0) Estimated GFR (Cockcroft-Gault) 63.9 BUN/Creatinine Ratio 11 (6-20) Glucose Level 123 mg/dL (70-99) Calcium Level 8.5 mg/dL (8.5-10.1) Total Bilirubin 0.8 mg/dL (0.2-1.0) Aspartate Amino Transf (AST/SGOT) 25 U/L (15-37) Alanine Aminotransferase (ALT/SGPT) 30 U/L (14-59) Alkaline Phosphatase 104 U/L (46-116) Total Protein 7.3 g/dL (6.4-8.2) Albumin 3.2 g/dL (3.4-5.0) Albumin/Globulin Ratio 0.8 (1.0-1.7) Lipase 70 U/L (73-393) Laboratory Tests Test 12/28/18 14:00 12/28/18 14:30 Urine Collection Type Unknown Urine Color Yellow Urine Clarity Clear Urine pH 6.0 Urine Specific [place] 1.010 Urine Protein Negative mg/dL (NEG-TRACE) Urine Glucose (UA) Negative mg/dL (NEG) Urine Ketones (Stick) Negative mg/dL (NEG) Urine Blood Negative (NEG) Urine Nitrite Negative (NEG) Urine Bilirubin Negative (NEG) Urine Urobilinogen Dipstick 1.0 mg/dL (0.2 mg/dL) Urine Leukocyte Esterase Moderate (NEG) Urine RBC 0 /HPF (0-2) Urine WBC 5-10 /HPF (0-4) Urine Squamous Epithelial Cells Mod /LPF Urine Bacteria Few /HPF (0-FEW) White Blood Count 11.6 x10^3/uL (4.0-11.0) Red Blood Count 3.90 x10^6/uL (3.50-5.40) Hemoglobin 11.6 g/dL (12.0-15.5) Hematocrit 33.4 % (36.0-47.0) Mean Corpuscular Volume 86 fL (79-100) Mean Corpuscular Hemoglobin 30 pg (25-35) Mean Corpuscular Hemoglobin Concent 35 g/dL (31-37) Red Cell Distribution Width 14.4 % (11.5-14.5) Platelet Count 272 x10^3/uL (140-400) Neutrophils (%) (Auto) 74 % (31-73) Lymphocytes (%) (Auto) 14 % (24-48) Monocytes (%) (Auto) 11 % (0-9) Eosinophils (%) (Auto) 2 % (0-3) Basophils (%) (Auto) 1 % (0-3) Neutrophils # (Auto) 8.5 x10^3uL (1.8-7.7) Lymphocytes # (Auto) 1.6 x10^3/uL (1.0-4.8) Monocytes # (Auto) 1.2 x10^3/uL (0.0-1.1) Eosinophils # (Auto) 0.2 x10^3/uL (0.0-0.7) Basophils # (Auto) 0.1 x10^3/uL (0.0-0.2) Sodium Level 132 mmol/L (136-145) Potassium Level 3.5 mmol/L (3.5-5.1) Chloride Level 95 mmol/L (98-107) Carbon Dioxide Level 27 mmol/L (21-32) Anion Gap 10 (6-14) Blood Urea Nitrogen 10 mg/dL (7-20) Creatinine 0.9 mg/dL (0.6-1.0) Estimated GFR (Cockcroft-Gault) 63.9 BUN/Creatinine Ratio 11 (6-20) Glucose Level 123 mg/dL (70-99) Calcium Level 8.5 mg/dL (8.5-10.1) Total Bilirubin 0.8 mg/dL (0.2-1.0) Aspartate Amino Transf (AST/SGOT) 25 U/L (15-37) Alanine Aminotransferase (ALT/SGPT) 30 U/L (14-59) Alkaline Phosphatase 104 U/L (46-116) Total Protein 7.3 g/dL (6.4-8.2) Albumin 3.2 g/dL (3.4-5.0) Albumin/Globulin Ratio 0.8 (1.0-1.7) Lipase 70 U/L (73-393) Images Images SEX: F EXAM STATUS: REG ER ORD. PHYSICIAN: CADY MONTEIRO Jr. DO REASON: lower abd pain-INJ 75ML OMNI 300 PROCEDURE: CT ABD PELV W/ IV CONTRST ONLY CT of the abdomen and pelvis with contrast, 12/28/2018: HISTORY: Lower abdominal pain Multidetector CT imaging was performed following an IV bolus injection of iodinated contrast material. No oral contrast material was administered for this study. Comparison is made to an exam from 01/25/2018. The gallbladder is surgically absent. No hepatic abnormality is seen. The pancreas shows no abnormality. The spleen is of normal size. The right kidney is malrotated. There is a moderate sized cyst arising from the lower pole the right kidney. The left renal pelvis and proximal left ureter are mildly prominent compared to the previous study. This is probably related to extrinsic compression by the left lower quadrant inflammatory process, to be described. Aortic calcific plaquing is present without evidence of aneurysm. Several small periaortic lymph nodes are noted without evidence of pathologic enlargement. The uterus is surgically absent. Sigmoid diverticula are present. There is severe mural thickening involving the proximal to mid sigmoid colon. There is moderate adjacent streaky increased density in the paracolic fat compatible with inflammation. The findings suggest acute diverticulitis. A discrete drainable paracolic abscess is not visible. There is a moderate amount of gas and stool in the colon proximal to this level. There are surgical sutures related to the colon in the hepatic flexure region. The small bowel loops are not dilated. No free fluid or free air is evident in the abdomen or pelvis. There has been interval surgical repair of the large ventral hernia seen on 01/25/2018. A surgical mesh is in place. There is residual anterior bulging of the fascia along the superior aspect of the mesh. Streaky increased density in the subcutaneous soft tissues at this level is compatible with scarring. There is a moderate thoracolumbar scoliosis with moderate associated multilevel degenerative change. IMPRESSION: 1. Sigmoid diverticulosis with extensive mural thickening and paracolic inflammation related to the proximal to mid sigmoid colon, compatible with acute diverticulitis. The possibility of underlying colonic neoplasm cannot be excluded. 2. Interval repair of the patient's large ventral hernia since 01/25/2018. PQRS Compliance Statement: One or more of the following individualized dose reduction techniques were utilized for this examination: 1. Automated exposure control 2. Adjustment of the mA and/or kV according to patient size 3. Use of iterative reconstruction technique Electronically signed by: Jose Contreras MD (12/28/2018 4:03 PM) [facility] DICTATED and SIGNED BY: JOSE CONTRERAS MD DATE: 12/28/18 1600 VTE Prophylaxis Ordered VTE Prophylaxis Devices: Yes VTE Pharmacological Prophylaxi: Yes Assessment/Plan Assessment/Plan IMPRESSION: 1.ACUTE Sigmoid diverticulosis with extensive mural thickening and paracolic inflammation related to the proximal to mid sigmoid colon, compatible with acute diverticulitis. The possibility of underlying colonic neoplasm cannot be excluded. 2. Interval repair of the patient's large ventral hernia since 01/25/2018. 3. UTI 4. SEPSIS 5. morbid obesity 6. tobacco abuse PLAN 1. NPO 2. IV FLUID SUPPORT 3. IV ANTIBIOTICS, CIPRO, FLAGYL 4. GI CONSULT 5. DVT prophylaxis 6. gi prophylaxis 7. home meds 8. blood culture 74 min pt exam, chart review, > 50% of time spent with exam, chart rfeview, pt care coordination ETHAN CARR MD December 28, 2018 19:18
[2018-12-28] MEDS ORDERED: 0.9 % SODIUM CHLORIDE 3ML DISP.SYRIN. IV PRN (19:30)
[2018-12-28] MEDS ORDERED: DOCUSATE SODIUM 100 MG CAPSULE. PO PRN (19:30)
[2018-12-28] MEDS ORDERED: guaiFENesin ORAL 200 MG/10 ML LIQUID. PO PRN (19:30)
[2018-12-28] MEDS ORDERED: cloNIDine HCL 0.1 MG TABLET PO PRN (19:30)
[2018-12-28] MEDS: IPRATRPIUM/ALBUTEROL 0.5/2.5MG 3 ML NEBU. NEB SCH ×2 (20:18→23:45)
[2018-12-28] MEDS: ENOXAPARIN 40 MG/0.4 ML SYRINGE. SQ SCH (20:58)
[2018-12-28] MEDS: ZOLPIDEM 5 MG TABLET. PO PRN (20:59)
[2018-12-28 22:40] VITALS: BP 99/50
[2018-12-28] MEDS ORDERED: FEXO1TAB31 PO (23:49)
[2018-12-28] MEDS ORDERED: ONDA4TAB7 PO (23:49)
[2018-12-29] MEDS: IV NORMAL SALINE 1000ML BAG 1,000 ML IV SCH ×2 (00:28→08:17)
[2018-12-29] MEDS: MORPHINE SULFATE 4 MG/ML VIAL. IV PRN ×3 (02:10→12:04)
[2018-12-29 02:57] VITALS: BP 111/57
[2018-12-29] MEDS: IPRATRPIUM/ALBUTEROL 0.5/2.5MG 3 ML NEBU. NEB SCH ×5 (04:00→19:53)
[2018-12-29 04:33] LABS: BASO % 0 % (0-3); EOS # 0.2 x10^3/uL (0.0-0.7); EOS % 2 % (0-3); HEMATOCRIT 29.4 % (36.0-47.0); LYMPH # 1.1 x10^3/uL (1.0-4.8); LYMPH % 12 % (24-48); MEAN CORPUSCULAR HEMOGLOBIN 29 pg (25-35); MEAN CORPUSCULAR HGB CONC 34 g/dL (31-37); MEAN CORPUSCULAR VOLUME 87 fL (79-100); MONO % 10 % (0-9); NEUT # 7.1 x10^3uL (1.8-7.7); NEUT % 76 % (31-73); PLATELET COUNT 235 x10^3/uL (140-400); RED BLOOD COUNT 3.39 x10^6/uL (3.50-5.40); RED CELL DISTRIBUTION WIDTH 14.6 % (11.5-14.5); WHITE BLOOD COUNT 9.4 x10^3/uL (4.0-11.0)
[2018-12-29 04:51] LABS: CALCIUM 8.3 mg/dL (8.5-10.1); CREATININE 0.7 mg/dL (0.6-1.0); GFR 85.4; POTASSIUM 3.7 mmol/L (3.5-5.1)
[2018-12-29 07:00] VITALS: BP 106/51
--- NOTE | 2018-12-29 08:04 | PDOC ---
PROGRESS NOTES History of Present Illness History of Present Illness VTE Prophylaxis Ordered VTE Prophylaxis Devices: Yes VTE Pharmacological Prophylaxi: Yes Assessment/Plan Assessment/Plan IMPRESSION: 1.ACUTE Sigmoid diverticulosis with extensive mural thickening and paracolic inflammation related to the proximal to mid sigmoid colon, compatible with acute diverticulitis. The possibility of underlying colonic neoplasm cannot be excluded. 2. Interval repair of the patient's large ventral hernia since 01/25/2018. 3. UTI 4. SEPSIS 5. morbid obesity 6. tobacco abuse PLAN 1. NPO 2. IV FLUID SUPPORT 3. IV ANTIBIOTICS, CIPRO, FLAGYL 4. GI CONSULT 5. DVT prophylaxis 6. gi prophylaxis 7. home meds 8. blood culture 44 min pt exam, chart review, > 50% of time spent with exam, chart review, pt care coordination Vitals Vitals Vital Signs Date Time Temp Pulse Resp B/P (MAP) Pulse Ox O2 Delivery O2 Flow Rate FiO2 12/29/18 07:43 95 Nasal Cannula 2.0 12/29/18 06:41 18 12/29/18 02:57 99.4 76 111/57 (75) 99.4 Physical Exam General: Alert, Oriented X3, Cooperative, mild distress Heart: Regular rate, Normal S1 Lungs: Clear, Wheezing Abdomen: Normal bowel sounds, Soft, No hepatosplenomegaly Extremities: No clubbing, No cyanosis, No edema Skin: No significant lesion Labs LABS Laboratory Tests Test 12/28/18 14:00 12/28/18 14:30 12/28/18 19:30 12/29/18 03:35 Urine Collection Type Unknown Urine Color Yellow Urine Clarity Clear Urine pH 6.0 Urine Specific [place] 1.010 Urine Protein Negative mg/dL (NEG-TRACE) Urine Glucose (UA) Negative mg/dL (NEG) Urine Ketones (Stick) Negative mg/dL (NEG) Urine Blood Negative (NEG) Urine Nitrite Negative (NEG) Urine Bilirubin Negative (NEG) Urine Urobilinogen Dipstick 1.0 mg/dL (0.2 mg/dL) Urine Leukocyte Esterase Moderate (NEG) Urine RBC 0 /HPF (0-2) Urine WBC 5-10 /HPF (0-4) Urine Squamous Epithelial Cells Mod /LPF Urine Bacteria Few /HPF (0-FEW) White Blood Count 11.6 x10^3/uL (4.0-11.0) 9.4 x10^3/uL (4.0-11.0) Red Blood Count 3.90 x10^6/uL (3.50-5.40) 3.39 x10^6/uL (3.50-5.40) Hemoglobin 11.6 g/dL (12.0-15.5) 10.0 g/dL (12.0-15.5) Hematocrit 33.4 % (36.0-47.0) 29.4 % (36.0-47.0) Mean Corpuscular Volume 86 fL (79-100) 87 fL (79-100) Mean Corpuscular Hemoglobin 30 pg (25-35) 29 pg (25-35) Mean Corpuscular Hemoglobin Concent 35 g/dL (31-37) 34 g/dL (31-37) Red Cell Distribution Width 14.4 % (11.5-14.5) 14.6 % (11.5-14.5) Platelet Count 272 x10^3/uL (140-400) 235 x10^3/uL (140-400) Neutrophils (%) (Auto) 74 % (31-73) 76 % (31-73) Lymphocytes (%) (Auto) 14 % (24-48) 12 % (24-48) Monocytes (%) (Auto) 11 % (0-9) 10 % (0-9) Eosinophils (%) (Auto) 2 % (0-3) 2 % (0-3) Basophils (%) (Auto) 1 % (0-3) 0 % (0-3) Neutrophils # (Auto) 8.5 x10^3uL (1.8-7.7) 7.1 x10^3uL (1.8-7.7) Lymphocytes # (Auto) 1.6 x10^3/uL (1.0-4.8) 1.1 x10^3/uL (1.0-4.8) Monocytes # (Auto) 1.2 x10^3/uL (0.0-1.1) 1.0 x10^3/uL (0.0-1.1) Eosinophils # (Auto) 0.2 x10^3/uL (0.0-0.7) 0.2 x10^3/uL (0.0-0.7) Basophils # (Auto) 0.1 x10^3/uL (0.0-0.2) 0.0 x10^3/uL (0.0-0.2) Sodium Level 132 mmol/L (136-145) 136 mmol/L (136-145) Potassium Level 3.5 mmol/L (3.5-5.1) 3.7 mmol/L (3.5-5.1) Chloride Level 95 mmol/L (98-107) 101 mmol/L (98-107) Carbon Dioxide Level 27 mmol/L (21-32) 26 mmol/L (21-32) Anion Gap 10 (6-14) 9 (6-14) Blood Urea Nitrogen 10 mg/dL (7-20) 9 mg/dL (7-20) Creatinine 0.9 mg/dL (0.6-1.0) 0.7 mg/dL (0.6-1.0) Estimated GFR (Cockcroft-Gault) 63.9 85.4 BUN/Creatinine Ratio 11 (6-20) Glucose Level 123 mg/dL (70-99) 105 mg/dL (70-99) Calcium Level 8.5 mg/dL (8.5-10.1) 8.3 mg/dL (8.5-10.1) Total Bilirubin 0.8 mg/dL (0.2-1.0) Aspartate Amino Transf (AST/SGOT) 25 U/L (15-37) Alanine Aminotransferase (ALT/SGPT) 30 U/L (14-59) Alkaline Phosphatase 104 U/L (46-116) Total Protein 7.3 g/dL (6.4-8.2) Albumin 3.2 g/dL (3.4-5.0) Albumin/Globulin Ratio 0.8 (1.0-1.7) Lipase 70 U/L (73-393) Lactic Acid Level 0.7 mmol/L (0.4-2.0) Assessment and Plan Assessmemt and Plan Problems Medical Problems: (1) Acute diverticulitis Status: Acute (2) Urinary tract infection Status: Acute Comment Review of Relevant I have reviewed the following items ron (where applicable) has been applied. Labs Laboratory Tests Test 12/28/18 14:00 12/28/18 14:30 12/28/18 19:30 12/29/18 03:35 Urine Collection Type Unknown Urine Color Yellow Urine Clarity Clear Urine pH 6.0 Urine Specific [place] 1.010 Urine Protein Negative mg/dL (NEG-TRACE) Urine Glucose (UA) Negative mg/dL (NEG) Urine Ketones (Stick) Negative mg/dL (NEG) Urine Blood Negative (NEG) Urine Nitrite Negative (NEG) Urine Bilirubin Negative (NEG) Urine Urobilinogen Dipstick 1.0 mg/dL (0.2 mg/dL) Urine Leukocyte Esterase Moderate (NEG) Urine RBC 0 /HPF (0-2) Urine WBC 5-10 /HPF (0-4) Urine Squamous Epithelial Cells Mod /LPF Urine Bacteria Few /HPF (0-FEW) White Blood Count 11.6 x10^3/uL (4.0-11.0) 9.4 x10^3/uL (4.0-11.0) Red Blood Count 3.90 x10^6/uL (3.50-5.40) 3.39 x10^6/uL (3.50-5.40) Hemoglobin 11.6 g/dL (12.0-15.5) 10.0 g/dL (12.0-15.5) Hematocrit 33.4 % (36.0-47.0) 29.4 % (36.0-47.0) Mean Corpuscular Volume 86 fL (79-100) 87 fL (79-100) Mean Corpuscular Hemoglobin 30 pg (25-35) 29 pg (25-35) Mean Corpuscular Hemoglobin Concent 35 g/dL (31-37) 34 g/dL (31-37) Red Cell Distribution Width 14.4 % (11.5-14.5) 14.6 % (11.5-14.5) Platelet Count 272 x10^3/uL (140-400) 235 x10^3/uL (140-400) Neutrophils (%) (Auto) 74 % (31-73) 76 % (31-73) Lymphocytes (%) (Auto) 14 % (24-48) 12 % (24-48) Monocytes (%) (Auto) 11 % (0-9) 10 % (0-9) Eosinophils (%) (Auto) 2 % (0-3) 2 % (0-3) Basophils (%) (Auto) 1 % (0-3) 0 % (0-3) Neutrophils # (Auto) 8.5 x10^3uL (1.8-7.7) 7.1 x10^3uL (1.8-7.7) Lymphocytes # (Auto) 1.6 x10^3/uL (1.0-4.8) 1.1 x10^3/uL (1.0-4.8) Monocytes # (Auto) 1.2 x10^3/uL (0.0-1.1) 1.0 x10^3/uL (0.0-1.1) Eosinophils # (Auto) 0.2 x10^3/uL (0.0-0.7) 0.2 x10^3/uL (0.0-0.7) Basophils # (Auto) 0.1 x10^3/uL (0.0-0.2) 0.0 x10^3/uL (0.0-0.2) Sodium Level 132 mmol/L (136-145) 136 mmol/L (136-145) Potassium Level 3.5 mmol/L (3.5-5.1) 3.7 mmol/L (3.5-5.1) Chloride Level 95 mmol/L (98-107) 101 mmol/L (98-107) Carbon Dioxide Level 27 mmol/L (21-32) 26 mmol/L (21-32) Anion Gap 10 (6-14) 9 (6-14) Blood Urea Nitrogen 10 mg/dL (7-20) 9 mg/dL (7-20) Creatinine 0.9 mg/dL (0.6-1.0) 0.7 mg/dL (0.6-1.0) Estimated GFR (Cockcroft-Gault) 63.9 85.4 BUN/Creatinine Ratio 11 (6-20) Glucose Level 123 mg/dL (70-99) 105 mg/dL (70-99) Calcium Level 8.5 mg/dL (8.5-10.1) 8.3 mg/dL (8.5-10.1) Total Bilirubin 0.8 mg/dL (0.2-1.0) Aspartate Amino Transf (AST/SGOT) 25 U/L (15-37) Alanine Aminotransferase (ALT/SGPT) 30 U/L (14-59) Alkaline Phosphatase 104 U/L (46-116) Total Protein 7.3 g/dL (6.4-8.2) Albumin 3.2 g/dL (3.4-5.0) Albumin/Globulin Ratio 0.8 (1.0-1.7) Lipase 70 U/L (73-393) Lactic Acid Level 0.7 mmol/L (0.4-2.0) Laboratory Tests Test 12/28/18 14:00 12/28/18 14:30 12/28/18 19:30 12/29/18 03:35 Urine Collection Type Unknown Urine Color Yellow Urine Clarity Clear Urine pH 6.0 Urine Specific [place] 1.010 Urine Protein Negative mg/dL (NEG-TRACE) Urine Glucose (UA) Negative mg/dL (NEG) Urine Ketones (Stick) Negative mg/dL (NEG) Urine Blood Negative (NEG) Urine Nitrite Negative (NEG) Urine Bilirubin Negative (NEG) Urine Urobilinogen Dipstick 1.0 mg/dL (0.2 mg/dL) Urine Leukocyte Esterase Moderate (NEG) Urine RBC 0 /HPF (0-2) Urine WBC 5-10 /HPF (0-4) Urine Squamous Epithelial Cells Mod /LPF Urine Bacteria Few /HPF (0-FEW) White Blood Count 11.6 x10^3/uL (4.0-11.0) 9.4 x10^3/uL (4.0-11.0) Red Blood Count 3.90 x10^6/uL (3.50-5.40) 3.39 x10^6/uL (3.50-5.40) Hemoglobin 11.6 g/dL (12.0-15.5) 10.0 g/dL (12.0-15.5) Hematocrit 33.4 % (36.0-47.0) 29.4 % (36.0-47.0) Mean Corpuscular Volume 86 fL (79-100) 87 fL (79-100) Mean Corpuscular Hemoglobin 30 pg (25-35) 29 pg (25-35) Mean Corpuscular Hemoglobin Concent 35 g/dL (31-37) 34 g/dL (31-37) Red Cell Distribution Width 14.4 % (11.5-14.5) 14.6 % (11.5-14.5) Platelet Count 272 x10^3/uL (140-400) 235 x10^3/uL (140-400) Neutrophils (%) (Auto) 74 % (31-73) 76 % (31-73) Lymphocytes (%) (Auto) 14 % (24-48) 12 % (24-48) Monocytes (%) (Auto) 11 % (0-9) 10 % (0-9) Eosinophils (%) (Auto) 2 % (0-3) 2 % (0-3) Basophils (%) (Auto) 1 % (0-3) 0 % (0-3) Neutrophils # (Auto) 8.5 x10^3uL (1.8-7.7) 7.1 x10^3uL (1.8-7.7) Lymphocytes # (Auto) 1.6 x10^3/uL (1.0-4.8) 1.1 x10^3/uL (1.0-4.8) Monocytes # (Auto) 1.2 x10^3/uL (0.0-1.1) 1.0 x10^3/uL (0.0-1.1) Eosinophils # (Auto) 0.2 x10^3/uL (0.0-0.7) 0.2 x10^3/uL (0.0-0.7) Basophils # (Auto) 0.1 x10^3/uL (0.0-0.2) 0.0 x10^3/uL (0.0-0.2) Sodium Level 132 mmol/L (136-145) 136 mmol/L (136-145) Potassium Level 3.5 mmol/L (3.5-5.1) 3.7 mmol/L (3.5-5.1) Chloride Level 95 mmol/L (98-107) 101 mmol/L (98-107) Carbon Dioxide Level 27 mmol/L (21-32) 26 mmol/L (21-32) Anion Gap 10 (6-14) 9 (6-14) Blood Urea Nitrogen 10 mg/dL (7-20) 9 mg/dL (7-20) Creatinine 0.9 mg/dL (0.6-1.0) 0.7 mg/dL (0.6-1.0) Estimated GFR (Cockcroft-Gault) 63.9 85.4 BUN/Creatinine Ratio 11 (6-20) Glucose Level 123 mg/dL (70-99) 105 mg/dL (70-99) Calcium Level 8.5 mg/dL (8.5-10.1) 8.3 mg/dL (8.5-10.1) Total Bilirubin 0.8 mg/dL (0.2-1.0) Aspartate Amino Transf (AST/SGOT) 25 U/L (15-37) Alanine Aminotransferase (ALT/SGPT) 30 U/L (14-59) Alkaline Phosphatase 104 U/L (46-116) Total Protein 7.3 g/dL (6.4-8.2) Albumin 3.2 g/dL (3.4-5.0) Albumin/Globulin Ratio 0.8 (1.0-1.7) Lipase 70 U/L (73-393) Lactic Acid Level 0.7 mmol/L (0.4-2.0) Medications Current Medications Fentanyl Citrate (Fentanyl 2ml Vial) 50 mcg PRN Q15MIN PRN IV PAIN GREATER THAN 3/10 Last administered on 12/28/18 16:22; Start 12/28/18 at 14:30; Stop 12/29/18 at 14:29 Sodium Chloride 1,000 ml @ 1,000 mls/hr Q1H IV Last administered on 12/28/18 14:37; Start 12/28/18 at 14:24; Stop 12/28/18 at 15:23; Status DC Ondansetron HCl (Zofran) 4 mg 1X ONCE IV Last administered on 12/28/18 14:39; Start 12/28/18 at 14:30; Stop 12/28/18 at 14:31; Status DC Iohexol (Omnipaque 300 Mg/ml) 75 ml 1X ONCE IV Last administered on 12/28/18 15:29; Start 12/28/18 at 14:45; Stop 12/28/18 at 14:46; Status DC Info (CONTRAST GIVEN -- Rx MONITORING) 1 each PRN DAILY PRN MC SEE COMMENTS; Start 12/28/18 at 14:45; Stop 12/30/18 at 14:44 Ciprofloxacin/ Dextrose 200 ml @ 200 mls/hr 1X ONCE IV Last administered on 5/3/19at 16:24; Start 12/28/18 at 16:15; Stop 12/28/18 at 17:14; Status DC Metronidazole 100 ml @ 100 mls/hr 1X ONCE IV Last administered on 12/28/18at 16:27; Start 12/28/18 at 16:15; Stop 12/28/18 at 17:14; Status DC Ondansetron HCl (Zofran) 4 mg PRN Q8HRS PRN IV NAUSEA/VOMITING; Start 12/28/18 at 16:30; Stop 12/28/18 at 19:34; Status DC Morphine Sulfate (Morphine Sulfate) 4 mg PRN Q2HR PRN IV PAIN Last administered on 12/29/18at 06:11; Start 12/28/18 at 16:30; Stop 12/29/18 at 16:29 Sodium Chloride 1,000 ml @ 125 mls/hr Q8H IV Last administered on 12/29/18at 00:28; Start 12/28/18 at 16:30; Stop 12/29/18 at 16:29 Acetaminophen (Tylenol) 650 mg PRN Q4HRS PRN PO FEVER; Start 12/28/18 at 16:30; Stop 12/28/18 at 19:35; Status DC Ciprofloxacin/ Dextrose 200 ml @ 200 mls/hr Q12HR IV ; Start 12/29/18 at 09:00 Metronidazole 100 ml @ 100 mls/hr Q12HR IV ; Start 12/29/18 at 09:00 Sodium Chloride (Normal Saline Flush 3ml) 3 ml QSHIFT PRN IV AFTER MEDS AND BLOOD DRAWS; Start 12/28/18 at 19:30 Ondansetron HCl (Zofran) 4 mg PRN Q4HRS PRN IV NAUSEA/VOMITING; Start 12/28/18 at 19:30 Zolpidem Tartrate (Ambien) 5 mg PRN QHS PRN PO INSOMNIA Last administered on 12/28/18at 20:59; Start 12/28/18 at 19:30 Acetaminophen (Tylenol) 650 mg PRN Q4HRS PRN PO TEMP OVER 100.4F OR MILD PAIN; Start 12/28/18 at 19:30 Clonidine HCl (Catapres) 0.1 mg PRN Q6HRS PRN PO SBP>160 OR DBP>90; Start 12/28/18 at 19:30 Docusate Sodium (Colace) 100 mg PRN BID PRN PO CONSTIPATION; Start 12/28/18 at 1 9:30 Albuterol/ Ipratropium (Duoneb) 3 ml Q4HRS NEB Last administered on 12/29/18at 07:35; Start 12/28/18 at 20:00 Guaifenesin (Robitussin) 200 mg PRN Q4HRS PRN PO COUGH; Start 12/28/18 at 19:30 Lorazepam (Ativan) 0.5 mg PRN Q4HRS PRN PO ANXIETY / AGITATION; Start 12/28/18 at 19:30 Enoxaparin Sodium (Lovenox 40mg Syringe) 40 mg QHS SQ Last administered on 12/28/18at 20:58; Start 12/28/18 at 21:00 Active Scripts Active Reported Zofran (Ondansetron Hcl) 4 Mg Tablet 1 Tab PO Q6HRS Mihaela-D 24 Hour Tablet (Fexofenadine/Pseudoephedrine) 1 Each Tab.er.24h 1 Tab PO DAILY Symbicort 160-4.5 Mcg Inhaler (Budesonide/Formoterol Fumarate) 10.2 Gm Hfa.aer.ad 2 Puff IH BID Adderall 30 Mg Tablet (Dextroamphetamine/Amphetamine) 30 Mg Tablet 30 Mg PO DAILY16 Adderall 30 Mg Tablet (Dextroamphetamine/Amphetamine) 30 Mg Tablet 60 Mg PO DAILY08 Vitals/I & O Vital Sign - Last 24 Hours 12/28/18 12/28/18 12/28/18 12/28/18 14:00 14:38 14:40 15:08 Temp 98.7 98.7 Pulse 86 70 68 Resp 18 20 20 20 B/P (MAP) 151/76 (101) 133/65 (87) 138/70 (92) Pulse Ox 97 95 95 94 O2 Delivery Room Air Room Air Room Air 12/28/18 12/28/18 12/28/18 12/28/18 16:18 16:22 16:33 17:03 Pulse 64 70 66 Resp 16 18 16 16 B/P (MAP) 138/58 (84) 113/69 (84) 124/66 (85) Pulse Ox 95 97 90 95 O2 Delivery Room Air Room Air Room Air Nasal Cannula O2 Flow Rate 2.0 12/28/18 12/28/18 12/28/18 12/28/18 17:22 18:08 19:00 19:00 Temp 98.3 98.3 Pulse 68 Resp 16 16 18 B/P (MAP) 106/55 (72) Pulse Ox 93 96 97 O2 Delivery Room Air Room Air Room Air Room Air 12/28/18 12/28/18 12/28/18 12/28/18 19:10 20:59 22:40 23:13 Temp 99.4 99.4 Pulse 76 Resp 18 18 18 B/P (MAP) 99/50 (66) Pulse Ox 93 92 92 O2 Delivery Room Air Room Air Room Air Room Air O2 Flow Rate 18.0 18.0 12/28/18 12/29/18 12/29/18 12/29/18 23:46 02:10 02:40 02:57 Temp 99.4 99.4 Pulse 76 Resp 18 18 B/P (MAP) 111/57 (75) Pulse Ox 96 96 97 O2 Delivery Room Air Room Air Nasal Cannula O2 Flow Rate 18.0 18.0 2.0 12/29/18 12/29/18 12/29/18 06:11 06:41 07:43 Resp 18 18 Pulse Ox 97 97 95 O2 Delivery Room Air Room Air Nasal Cannula O2 Flow Rate 2.0 2.0 Intake and Output 12/28/18 12/28/18 12/29/18 14:59 22:59 06:59 Intake Total 1300 ml 1100 ml Output Total 100 ml Balance 1300 ml 1000 ml ETHAN CARR MD December 29, 2018 08:04
[2018-12-29] MEDS: CIPROFLOXACIN 400MG PREMIX 200 ML IV SCH ×2 (08:17→20:04)
[2018-12-29 11:00] VITALS: BP 122/62
[2018-12-29] MEDS: ACETAMINOPHEN 325 MG TABLET. PO PRN ×2 (12:09→23:36)
--- NOTE | 2018-12-29 12:45 | PDOC2 ---
GI CONSULT Reason For Consult: Diverticulitis HPI: HPI: Андрей Bergman is a 58 years old female patient with past medical history of chronic obstructive pulmonary disease, irritable bowel syndrome and fibromyalgia. She is currently admitted after she presented with constipation and stabbing lower abdominal pain. She also gives history of rectal bleeding several days ago. the bleeding was bright red in color and mild to moderate in amount. She attributes the bleeding to underlying constipation with hard stool. She has been using stool softeners and laxatives including Miralax with no significant improvement. She reports she had associated chills and sweating but no fever. She has also non specific chest pain radiating to the back. She denies other acute symptoms. Her last colonoscopic exam was done in 2013 at . She could not remember the exact endoscopic findings but she remembers being told to have screening colonoscopy after 5 years. She admits to smoking cigarette. Social History: Smoke: <1 pack per day ALCOHOL: occassional Drugs: None ROS: GEN: Denies fevers, chills, sweats HEENT: Denies blurred vision, sore throat CV: Denies chest pain RESP: Denies shortness of air, cough GI: Per HPI : Denies hematuria, dysuria ENDO: Denies weight changes NEURO: Denies confusion, dizziness MSK: Denies weakness, joint pain/swelling SKIN: Denies jaundice, pruritus Vitals: Vitals: Vital Signs Date Time Temp Pulse Resp B/P (MAP) Pulse Ox O2 Delivery O2 Flow Rate FiO2 12/29/18 12:04 Room Air 12/29/18 11:28 95 12/29/18 11:00 99.3 70 16 122/62 (82) 99.3 12/29/18 08:16 2.0 Labs: Labs: Laboratory Tests Test 12/28/18 14:00 12/28/18 14:30 12/28/18 19:30 12/29/18 03:35 Urine Collection Type Unknown Urine Color Yellow Urine Clarity Clear Urine pH 6.0 Urine Specific [place] 1.010 Urine Protein Negative mg/dL (NEG-TRACE) Urine Glucose (UA) Negative mg/dL (NEG) Urine Ketones (Stick) Negative mg/dL (NEG) Urine Blood Negative (NEG) Urine Nitrite Negative (NEG) Urine Bilirubin Negative (NEG) Urine Urobilinogen Dipstick 1.0 mg/dL (0.2 mg/dL) Urine Leukocyte Esterase Moderate (NEG) Urine RBC 0 /HPF (0-2) Urine WBC 5-10 /HPF (0-4) Urine Squamous Epithelial Cells Mod /LPF Urine Bacteria Few /HPF (0-FEW) White Blood Count 11.6 x10^3/uL (4.0-11.0) 9.4 x10^3/uL (4.0-11.0) Red Blood Count 3.90 x10^6/uL (3.50-5.40) 3.39 x10^6/uL (3.50-5.40) Hemoglobin 11.6 g/dL (12.0-15.5) 10.0 g/dL (12.0-15.5) Hematocrit 33.4 % (36.0-47.0) 29.4 % (36.0-47.0) Mean Corpuscular Volume 86 fL (79-100) 87 fL (79-100) Mean Corpuscular Hemoglobin 30 pg (25-35) 29 pg (25-35) Mean Corpuscular Hemoglobin Concent 35 g/dL (31-37) 34 g/dL (31-37) Red Cell Distribution Width 14.4 % (11.5-14.5) 14.6 % (11.5-14.5) Platelet Count 272 x10^3/uL (140-400) 235 x10^3/uL (140-400) Neutrophils (%) (Auto) 74 % (31-73) 76 % (31-73) Lymphocytes (%) (Auto) 14 % (24-48) 12 % (24-48) Monocytes (%) (Auto) 11 % (0-9) 10 % (0-9) Eosinophils (%) (Auto) 2 % (0-3) 2 % (0-3) Basophils (%) (Auto) 1 % (0-3) 0 % (0-3) Neutrophils # (Auto) 8.5 x10^3uL (1.8-7.7) 7.1 x10^3uL (1.8-7.7) Lymphocytes # (Auto) 1.6 x10^3/uL (1.0-4.8) 1.1 x10^3/uL (1.0-4.8) Monocytes # (Auto) 1.2 x10^3/uL (0.0-1.1) 1.0 x10^3/uL (0.0-1.1) Eosinophils # (Auto) 0.2 x10^3/uL (0.0-0.7) 0.2 x10^3/uL (0.0-0.7) Basophils # (Auto) 0.1 x10^3/uL (0.0-0.2) 0.0 x10^3/uL (0.0-0.2) Sodium Level 132 mmol/L (136-145) 136 mmol/L (136-145) Potassium Level 3.5 mmol/L (3.5-5.1) 3.7 mmol/L (3.5-5.1) Chloride Level 95 mmol/L (98-107) 101 mmol/L (98-107) Carbon Dioxide Level 27 mmol/L (21-32) 26 mmol/L (21-32) Anion Gap 10 (6-14) 9 (6-14) Blood Urea Nitrogen 10 mg/dL (7-20) 9 mg/dL (7-20) Creatinine 0.9 mg/dL (0.6-1.0) 0.7 mg/dL (0.6-1.0) Estimated GFR (Cockcroft-Gault) 63.9 85.4 BUN/Creatinine Ratio 11 (6-20) Glucose Level 123 mg/dL (70-99) 105 mg/dL (70-99) Calcium Level 8.5 mg/dL (8.5-10.1) 8.3 mg/dL (8.5-10.1) Total Bilirubin 0.8 mg/dL (0.2-1.0) Aspartate Amino Transf (AST/SGOT) 25 U/L (15-37) Alanine Aminotransferase (ALT/SGPT) 30 U/L (14-59) Alkaline Phosphatase 104 U/L (46-116) Total Protein 7.3 g/dL (6.4-8.2) Albumin 3.2 g/dL (3.4-5.0) Albumin/Globulin Ratio 0.8 (1.0-1.7) Lipase 70 U/L (73-393) Lactic Acid Level 0.7 mmol/L (0.4-2.0) Allergies: Coded Allergies: cephalexin (Verified Allergy, Severe, Nausea and Vomiting, 02/05/18) Sulfa (Sulfonamide Antibiotics) (Unverified Allergy, Intermediate, 02/08/15) clindamycin (Verified Allergy, Intermediate, 01/25/18) latex (Unverified Allergy, Intermediate, 02/08/15) Medications: Current Medications Medications (Trade) Dose Ordered Sig/Peter Route PRN Reason Start Time Stop Time Status Last Admin Dose Admin Fentanyl Citrate (Fentanyl 2ml Vial) 50 mcg PRN Q15MIN PRN IV PAIN GREATER THAN 3/10 12/28/18 14:30 12/29/18 14:29 12/28/18 16:22 Sodium Chloride 1,000 ml @ 1,000 mls/hr Q1H IV 12/28/18 14:24 12/28/18 15:23 DC 12/28/18 14:37 Ondansetron HCl (Zofran) 4 mg 1X ONCE IV 12/28/18 14:30 12/28/18 14:31 DC 12/28/18 14:39 Iohexol (Omnipaque 300 Mg/ml) 75 ml 1X ONCE IV 12/28/18 14:45 12/28/18 14:46 DC 12/28/18 15:29 Ciprofloxacin/ Dextrose 200 ml @ 200 mls/hr 1X ONCE IV 12/28/18 16:15 12/28/18 17:14 DC 12/28/18 16:24 Metronidazole 100 ml @ 100 mls/hr 1X ONCE IV 12/28/18 16:15 12/28/18 17:14 DC 12/28/18 16:27 Morphine Sulfate (Morphine Sulfate) 4 mg PRN Q2HR PRN IV PAIN 12/28/18 16:30 12/29/18 16:29 12/29/18 12:04 Sodium Chloride 1,000 ml @ 125 mls/hr Q8H IV 12/28/18 16:30 12/29/18 16:29 12/29/18 08:17 Ciprofloxacin/ Dextrose 200 ml @ 200 mls/hr Q12HR IV 12/29/18 09:00 12/29/18 08:17 Metronidazole 100 ml @ 100 mls/hr Q12HR IV 12/29/18 09:00 12/29/18 08:18 Zolpidem Tartrate (Ambien) 5 mg PRN QHS PRN PO INSOMNIA 12/28/18 19:30 12/28/18 20:59 Acetaminophen (Tylenol) 650 mg PRN Q4HRS PRN PO TEMP OVER 100.4F OR MILD PAIN 12/28/18 19:30 12/29/18 12:09 Albuterol/ Ipratropium (Duoneb) 3 ml Q4HRS NEB 12/28/18 20:00 12/29/18 11:26 Enoxaparin Sodium (Lovenox 40mg Syringe) 40 mg QHS SQ 12/28/18 21:00 12/28/18 20:58 Imaging: Imaging: [facility] [address] [place], [place] [id number] IMAGING REPORT Signed PATIENT: АНДРЕЙ BERGMAN ACCOUNT: [id number] : 1960 LOCATION: ER AGE: 58 SEX: F EXAM STATUS: REG ER ORD. PHYSICIAN: CADY MONTEIRO Jr. DO REASON: lower abd pain-INJ 75ML OMNI 300 PROCEDURE: CT ABD PELV W/ IV CONTRST ONLY CT of the abdomen and pelvis with contrast, 12/28/2018: HISTORY: Lower abdominal pain Multidetector CT imaging was performed following an IV bolus injection of iodinated contrast material. No oral contrast material was administered for this study. Comparison is made to an exam from 01/25/2018. The gallbladder is surgically absent. No hepatic abnormality is seen. The pancreas shows no abnormality. The spleen is of normal size. The right kidney is malrotated. There is a moderate sized cyst arising from the lower pole the right kidney. The left renal pelvis and proximal left ureter are mildly prominent compared to the previous study. This is probably related to extrinsic compression by the left lower quadrant inflammatory process, to be described. Aortic calcific plaquing is present without evidence of aneurysm. Several small periaortic lymph nodes are noted without evidence of pathologic enlargement. The uterus is surgically absent. Sigmoid diverticula are present. There is severe mural thickening involving the proximal to mid sigmoid colon. There is moderate adjacent streaky increased density in the paracolic fat compatible with inflammation. The findings suggest acute diverticulitis. A discrete drainable paracolic abscess is not visible. There is a moderate amount of gas and stool in the colon proximal to this level. There are surgical sutures related to the colon in the hepatic flexure region. The small bowel loops are not dilated. No free fluid or free air is evident in the abdomen or pelvis. There has been interval surgical repair of the large ventral hernia seen on 01/25/2018. A surgical mesh is in place. There is residual anterior bulging of the fascia along the superior aspect of the mesh. Streaky increased density in the subcutaneous soft tissues at this level is compatible with scarring. There is a moderate thoracolumbar scoliosis with moderate associated multilevel degenerative change. IMPRESSION: 1. Sigmoid diverticulosis with extensive mural thickening and paracolic inflammation related to the proximal to mid sigmoid colon, compatible with acute diverticulitis. The possibility of underlying colonic neoplasm cannot be excluded. 2. Interval repair of the patient's large ventral hernia since 01/25/2018. PQRS Compliance Statement: One or more of the following individualized dose reduction techniques were utilized for this examination: 1. Automated exposure control 2. Adjustment of the mA and/or kV according to patient size 3. Use of iterative reconstruction technique Electronically signed by: Jose Contreras MD (12/28/2018 4:03 PM) [facility] DICTATED and SIGNED BY: JOSE CONTRERAS MD DATE: 12/28/181602 PE: GEN: NAD HEENT: Atraumatic, PERRLA LUNGS: Has fine crepitations in bibasilar areas. HEART: RRR, no murmurs ABD:Obese abdomen with midline old surgical scar. No guarding or rebound tenderness. EXTREMITY: No edema SKIN: No rashes, no jaundice NEURO/PSYCH: A & O 3 A/P: A/P: Андрей Bergman is a 58 years old female patient with past medical history of chronic obstructive pulmonary disease, irritable bowel syndrome and fibromyalgia. Patient is currently admitted after she presented with constipation and stabbing lower abdominal pain. Labs notable for mild leucocytosis that has trended down now. Has also normocytic anemia with Hgb 10. Imaging of abdomen with CT was notable for severe mural thickening of the proximal to mid sigmoid colon with moderate adjacent streaky increased density in the paracolic fat suggesting acute diverticulitis. There was no evidence of discrete abscess collections. There was evidence of moderate amount of gas and stool in the colon proximal to this level.Last colonoscopic exam in 2013. Rachael ent told to have screening colonoscopy in 5 years. Recommendations - Advance diet as tolerated. - Continue with iv antibiotics at this time. - Please obtain iron studies. - Bowel regimen: Miralax 17grams 1-2 daily as needed. - CXR with atypical chest pain. - Advise patient to stop smoking. - Avoid non aspirin NSAIDs. - Patient needs to follow up with GI as out patient for colonoscopic exam after 8 weeks to rule out underlying colorectal neoplasia. GI available for any Q's. Thank you for allowing me to participate in the care of this interesting patient. JERZY MCCORMICK MD December 29, 2018 12:45
[2018-12-29 14:58] VITALS: BP 98/38
--- NOTE | 2018-12-29 18:54 | RAD ---
EXAM: Chest, 2 views. HISTORY: Chest pain. COMPARISON: 04/11/2018 FINDINGS: 2 views of the chest are obtained. There is bilateral lower lobe and perihilar atelectasis or interstitial infiltrate. The heart is normal in size. There is no pneumothorax. There are distended air-filled loops of bowel throughout the upper abdomen. There is ventral abdominal wall mesh. IMPRESSION: Bilateral lower lobe and perihilar atelectasis or interstitial infiltrate. Electronically signed by: Sherice Oliver MD (12/29/2018 6:51 PM) [facility]
[2018-12-29 19:00] VITALS: BP 135/51
[2018-12-29] MEDS: ZOLPIDEM 5 MG TABLET. PO PRN (20:07)
[2018-12-29] MEDS: LACTOBACILLUS RHAMNOSUS GG 1 CAPSULE. PO SCH (20:07)
[2018-12-29] MEDS: POLYETHYLENE GLYCOL 3350 17 GM PACKET. PO SCH (20:08)
[2018-12-29] MEDS: ENOXAPARIN 40 MG/0.4 ML SYRINGE. SQ SCH (20:08)
[2018-12-29 23:00] VITALS: BP 129/76
[2018-12-29] MEDS: LORazepam 0.5 MG TABLET PO PRN (23:35)
[2018-12-30 03:00] VITALS: BP 107/42
[2018-12-30] MEDS: IPRATRPIUM/ALBUTEROL 0.5/2.5MG 3 ML NEBU. NEB SCH ×7 (04:00→23:45)
[2018-12-30 05:21] LABS: BASO # 0.1 x10^3/uL (0.0-0.2); BASO % 1 % (0-3); EOS # 0.2 x10^3/uL (0.0-0.7); EOS % 3 % (0-3); HEMATOCRIT 29.7 % (36.0-47.0); HEMOGLOBIN 10.2 g/dL (12.0-15.5); LYMPH # 0.9 x10^3/uL (1.0-4.8); LYMPH % 11 % (24-48); MEAN CORPUSCULAR HEMOGLOBIN 30 pg (25-35); MEAN CORPUSCULAR HGB CONC 34 g/dL (31-37); MEAN CORPUSCULAR VOLUME 87 fL (79-100); MONO # 0.9 x10^3/uL (0.0-1.1); MONO % 11 % (0-9); NEUT # 6.4 x10^3uL (1.8-7.7); NEUT % 75 % (31-73); PLATELET COUNT 240 x10^3/uL (140-400); RED BLOOD COUNT 3.42 x10^6/uL (3.50-5.40); RED CELL DISTRIBUTION WIDTH 14.9 % (11.5-14.5); WHITE BLOOD COUNT 8.5 x10^3/uL (4.0-11.0)
[2018-12-30 05:57] LABS: ALBUMIN 2.8 g/dL (3.4-5.0); ALBUMIN/GLOBULIN RATIO 0.7 (1.0-1.7); CALCIUM 8.8 mg/dL (8.5-10.1); CREATININE 0.7 mg/dL (0.6-1.0); GFR 85.4; POTASSIUM 3.8 mmol/L (3.5-5.1); TOTAL BILIRUBIN 0.4 mg/dL (0.2-1.0); TOTAL PROTEIN 6.6 g/dL (6.4-8.2)
[2018-12-30 07:00] VITALS: BP 122/65
[2018-12-30] MEDS: POLYETHYLENE GLYCOL 3350 17 GM PACKET. PO SCH ×2 (08:14→21:54)
[2018-12-30] MEDS: LACTOBACILLUS RHAMNOSUS GG 1 CAPSULE. PO SCH ×2 (08:14→21:53)
[2018-12-30] MEDS: CIPROFLOXACIN 400MG PREMIX 200 ML IV SCH ×2 (08:17→21:46)
--- NOTE | 2018-12-30 10:16 | PDOC ---
PROGRESS NOTES History of Present Illness History of Present Illness VTE Prophylaxis Ordered VTE Prophylaxis Devices: Yes VTE Pharmacological Prophylaxi: Yes Assessment/Plan Assessment/Plan IMPRESSION: 1.ACUTE Sigmoid diverticulosis with extensive mural thickening and paracolic inflammation related to the proximal to mid sigmoid colon, compatible with acute diverticulitis. The possibility of underlying colonic neoplasm cannot be excluded. 2. Interval repair of the patient's large ventral hernia since 01/25/2018. 3. UTI 4. SEPSIS 5. morbid obesity 6. tobacco abuse 12/30 LLQ tenderness persists PLAN 1. NPO 2. IV FLUID SUPPORT 3. IV ANTIBIOTICS, CIPRO, FLAGYL 4. GI CONSULT 5. DVT prophylaxis 6. gi prophylaxis 7. home meds 8. blood culture 43 min pt exam, chart review, > 50% of time spent with exam, chart review, pt care coordination Vitals Vitals Vital Signs Date Time Temp Pulse Resp B/P (MAP) Pulse Ox O2 Delivery O2 Flow Rate FiO2 12/30/18 07:15 95 Room Air 12/30/18 07:00 99.5 94 20 122/65 (84) 99.5 12/30/18 03:00 2.0 Physical Exam General: Alert, Oriented X3, Cooperative, mild distress Heart: Regular rate, Normal S1 Lungs: Clear, Wheezing Abdomen: Normal bowel sounds, Soft, No hepatosplenomegaly, Other (llq tender no rebound) Extremities: No clubbing, No cyanosis, No edema Skin: No significant lesion Labs LABS Laboratory Tests Test 12/30/18 03:55 White Blood Count 8.5 x10^3/uL (4.0-11.0) Red Blood Count 3.42 x10^6/uL (3.50-5.40) Hemoglobin 10.2 g/dL (12.0-15.5) Hematocrit 29.7 % (36.0-47.0) Mean Corpuscular Volume 87 fL (79-100) Mean Corpuscular Hemoglobin 30 pg (25-35) Mean Corpuscular Hemoglobin Concent 34 g/dL (31-37) Red Cell Distribution Width 14.9 % (11.5-14.5) Platelet Count 240 x10^3/uL (140-400) Neutrophils (%) (Auto) 75 % (31-73) Lymphocytes (%) (Auto) 11 % (24-48) Monocytes (%) (Auto) 11 % (0-9) Eosinophils (%) (Auto) 3 % (0-3) Basophils (%) (Auto) 1 % (0-3) Neutrophils # (Auto) 6.4 x10^3uL (1.8-7.7) Lymphocytes # (Auto) 0.9 x10^3/uL (1.0-4.8) Monocytes # (Auto) 0.9 x10^3/uL (0.0-1.1) Eosinophils # (Auto) 0.2 x10^3/uL (0.0-0.7) Basophils # (Auto) 0.1 x10^3/uL (0.0-0.2) Sodium Level 138 mmol/L (136-145) Potassium Level 3.8 mmol/L (3.5-5.1) Chloride Level 103 mmol/L (98-107) Carbon Dioxide Level 24 mmol/L (21-32) Anion Gap 11 (6-14) Blood Urea Nitrogen 7 mg/dL (7-20) Creatinine 0.7 mg/dL (0.6-1.0) Estimated GFR (Cockcroft-Gault) 85.4 BUN/Creatinine Ratio 10 (6-20) Glucose Level 96 mg/dL (70-99) Calcium Level 8.8 mg/dL (8.5-10.1) Total Bilirubin 0.4 mg/dL (0.2-1.0) Aspartate Amino Transf (AST/SGOT) 23 U/L (15-37) Alanine Aminotransferase (ALT/SGPT) 27 U/L (14-59) Alkaline Phosphatase 78 U/L (46-116) Total Protein 6.6 g/dL (6.4-8.2) Albumin 2.8 g/dL (3.4-5.0) Albumin/Globulin Ratio 0.7 (1.0-1.7) Assessment and Plan Assessmemt and Plan Problems Medical Problems: (1) Acute diverticulitis Status: Acute (2) Urinary tract infection Status: Acute Comment Review of Relevant I have reviewed the following items ron (where applicable) has been applied. Labs Laboratory Tests Test 12/28/18 14:00 12/28/18 14:30 12/28/18 19:30 12/29/18 03:35 Urine Collection Type Unknown Urine Color Yellow Urine Clarity Clear Urine pH 6.0 Urine Specific [place] 1.010 Urine Protein Negative mg/dL (NEG-TRACE) Urine Glucose (UA) Negative mg/dL (NEG) Urine Ketones (Stick) Negative mg/dL (NEG) Urine Blood Negative (NEG) Urine Nitrite Negative (NEG) Urine Bilirubin Negative (NEG) Urine Urobilinogen Dipstick 1.0 mg/dL (0.2 mg/dL) Urine Leukocyte Esterase Moderate (NEG) Urine RBC 0 /HPF (0-2) Urine WBC 5-10 /HPF (0-4) Urine Squamous Epithelial Cells Mod /LPF Urine Bacteria Few /HPF (0-FEW) White Blood Count 11.6 x10^3/uL (4.0-11.0) 9.4 x10^3/uL (4.0-11.0) Red Blood Count 3.90 x10^6/uL (3.50-5.40) 3.39 x10^6/uL (3.50-5.40) Hemoglobin 11.6 g/dL (12.0-15.5) 10.0 g/dL (12.0-15.5) Hematocrit 33.4 % (36.0-47.0) 29.4 % (36.0-47.0) Mean Corpuscular Volume 86 fL (79-100) 87 fL (79-100) Mean Corpuscular Hemoglobin 30 pg (25-35) 29 pg (25-35) Mean Corpuscular Hemoglobin Concent 35 g/dL (31-37) 34 g/dL (31-37) Red Cell Distribution Width 14.4 % (11.5-14.5) 14.6 % (11.5-14.5) Platelet Count 272 x10^3/uL (140-400) 235 x10^3/uL (140-400) Neutrophils (%) (Auto) 74 % (31-73) 76 % (31-73) Lymphocytes (%) (Auto) 14 % (24-48) 12 % (24-48) Monocytes (%) (Auto) 11 % (0-9) 10 % (0-9) Eosinophils (%) (Auto) 2 % (0-3) 2 % (0-3) Basophils (%) (Auto) 1 % (0-3) 0 % (0-3) Neutrophils # (Auto) 8.5 x10^3uL (1.8-7.7) 7.1 x10^3uL (1.8-7.7) Lymphocytes # (Auto) 1.6 x10^3/uL (1.0-4.8) 1.1 x10^3/uL (1.0-4.8) Monocytes # (Auto) 1.2 x10^3/uL (0.0-1.1) 1.0 x10^3/uL (0.0-1.1) Eosinophils # (Auto) 0.2 x10^3/uL (0.0-0.7) 0.2 x10^3/uL (0.0-0.7) Basophils # (Auto) 0.1 x10^3/uL (0.0-0.2) 0.0 x10^3/uL (0.0-0.2) Sodium Level 132 mmol/L (136-145) 136 mmol/L (136-145) Potassium Level 3.5 mmol/L (3.5-5.1) 3.7 mmol/L (3.5-5.1) Chloride Level 95 mmol/L (98-107) 101 mmol/L (98-107) Carbon Dioxide Level 27 mmol/L (21-32) 26 mmol/L (21-32) Anion Gap 10 (6-14) 9 (6-14) Blood Urea Nitrogen 10 mg/dL (7-20) 9 mg/dL (7-20) Creatinine 0.9 mg/dL (0.6-1.0) 0.7 mg/dL (0.6-1.0) Estimated GFR (Cockcroft-Gault) 63.9 85.4 BUN/Creatinine Ratio 11 (6-20) Glucose Level 123 mg/dL (70-99) 105 mg/dL (70-99) Calcium Level 8.5 mg/dL (8.5-10.1) 8.3 mg/dL (8.5-10.1) Total Bilirubin 0.8 mg/dL (0.2-1.0) Aspartate Amino Transf (AST/SGOT) 25 U/L (15-37) Alanine Aminotransferase (ALT/SGPT) 30 U/L (14-59) Alkaline Phosphatase 104 U/L (46-116) Total Protein 7.3 g/dL (6.4-8.2) Albumin 3.2 g/dL (3.4-5.0) Albumin/Globulin Ratio 0.8 (1.0-1.7) Lipase 70 U/L (73-393) Lactic Acid Level 0.7 mmol/L (0.4-2.0) Test 12/30/18 03:55 White Blood Count 8.5 x10^3/uL (4.0-11.0) Red Blood Count 3.42 x10^6/uL (3.50-5.40) Hemoglobin 10.2 g/dL (12.0-15.5) Hematocrit 29.7 % (36.0-47.0) Mean Corpuscular Volume 87 fL (79-100) Mean Corpuscular Hemoglobin 30 pg (25-35) Mean Corpuscular Hemoglobin Concent 34 g/dL (31-37) Red Cell Distribution Width 14.9 % (11.5-14.5) Platelet Count 240 x10^3/uL (140-400) Neutrophils (%) (Auto) 75 % (31-73) Lymphocytes (%) (Auto) 11 % (24-48) Monocytes (%) (Auto) 11 % (0-9) Eosinophils (%) (Auto) 3 % (0-3) Basophils (%) (Auto) 1 % (0-3) Neutrophils # (Auto) 6.4 x10^3uL (1.8-7.7) Lymphocytes # (Auto) 0.9 x10^3/uL (1.0-4.8) Monocytes # (Auto) 0.9 x10^3/uL (0.0-1.1) Eosinophils # (Auto) 0.2 x10^3/uL (0.0-0.7) Basophils # (Auto) 0.1 x10^3/uL (0.0-0.2) Sodium Level 138 mmol/L (136-145) Potassium Level 3.8 mmol/L (3.5-5.1) Chloride Level 103 mmol/L (98-107) Carbon Dioxide Level 24 mmol/L (21-32) Anion Gap 11 (6-14) Blood Urea Nitrogen 7 mg/dL (7-20) Creatinine 0.7 mg/dL (0.6-1.0) Estimated GFR (Cockcroft-Gault) 85.4 BUN/Creatinine Ratio 10 (6-20) Glucose Level 96 mg/dL (70-99) Calcium Level 8.8 mg/dL (8.5-10.1) Total Bilirubin 0.4 mg/dL (0.2-1.0) Aspartate Amino Transf (AST/SGOT) 23 U/L (15-37) Alanine Aminotransferase (ALT/SGPT) 27 U/L (14-59) Alkaline Phosphatase 78 U/L (46-116) Total Protein 6.6 g/dL (6.4-8.2) Albumin 2.8 g/dL (3.4-5.0) Albumin/Globulin Ratio 0.7 (1.0-1.7) Laboratory Tests Test 12/30/18 03:55 White Blood Count 8.5 x10^3/uL (4.0-11.0) Red Blood Count 3.42 x10^6/uL (3.50-5.40) Hemoglobin 10.2 g/dL (12.0-15.5) Hematocrit 29.7 % (36.0-47.0) Mean Corpuscular Volume 87 fL (79-100) Mean Corpuscular Hemoglobin 30 pg (25-35) Mean Corpuscular Hemoglobin Concent 34 g/dL (31-37) Red Cell Distribution Width 14.9 % (11.5-14.5) Platelet Count 240 x10^3/uL (140-400) Neutrophils (%) (Auto) 75 % (31-73) Lymphocytes (%) (Auto) 11 % (24-48) Monocytes (%) (Auto) 11 % (0-9) Eosinophils (%) (Auto) 3 % (0-3) Basophils (%) (Auto) 1 % (0-3) Neutrophils # (Auto) 6.4 x10^3uL (1.8-7.7) Lymphocytes # (Auto) 0.9 x10^3/uL (1.0-4.8) Monocytes # (Auto) 0.9 x10^3/uL (0.0-1.1) Eosinophils # (Auto) 0.2 x10^3/uL (0.0-0.7) Basophils # (Auto) 0.1 x10^3/uL (0.0-0.2) Sodium Level 138 mmol/L (136-145) Potassium Level 3.8 mmol/L (3.5-5.1) Chloride Level 103 mmol/L (98-107) Carbon Dioxide Level 24 mmol/L (21-32) Anion Gap 11 (6-14) Blood Urea Nitrogen 7 mg/dL (7-20) Creatinine 0.7 mg/dL (0.6-1.0) Estimated GFR (Cockcroft-Gault) 85.4 BUN/Creatinine Ratio 10 (6-20) Glucose Level 96 mg/dL (70-99) Calcium Level 8.8 mg/dL (8.5-10.1) Total Bilirubin 0.4 mg/dL (0.2-1.0) Aspartate Amino Transf (AST/SGOT) 23 U/L (15-37) Alanine Aminotransferase (ALT/SGPT) 27 U/L (14-59) Alkaline Phosphatase 78 U/L (46-116) Total Protein 6.6 g/dL (6.4-8.2) Albumin 2.8 g/dL (3.4-5.0) Albumin/Globulin Ratio 0.7 (1.0-1.7) Microbiology 12/28/18 Blood Culture - Preliminary, Resulted NO GROWTH AFTER 1 DAY 12/28/18 Urine Culture - Final, Complete 12/28/18 Urine Culture Result 1 (AUDREY) - Final, Complete Medications Current Medications Fentanyl Citrate (Fentanyl 2ml Vial) 50 mcg PRN Q15MIN PRN IV PAIN GREATER THAN 3/10 Last administered on 12/28/18 16:22; Start 12/28/18 at 14:30; Stop 12/29/18 at 14:29; Status DC Sodium Chloride 1,000 ml @ 1,000 mls/hr Q1H IV Last administered on 12/28/18at 14:37; Start 12/28/18 at 14:24; Stop 12/28/18 at 15:23; Status DC Ondansetron HCl (Zofran) 4 mg 1X ONCE IV Last administered on 12/28/18at 14:39; Start 12/28/18 at 14:30; Stop 12/28/18 at 14:31; Status DC Iohexol (Omnipaque 300 Mg/ml) 75 ml 1X ONCE IV Last administered on 12/28/18at 15:29; Start 12/28/18 at 14:45; Stop 12/28/18 at 14:46; Status DC Info (CONTRAST GIVEN -- Rx MONITORING) 1 each PRN DAILY PRN MC SEE COMMENTS; Start 12/28/18 at 14:45; Stop 12/30/18 at 14:44 Ciprofloxacin/ Dextrose 200 ml @ 200 mls/hr 1X ONCE IV Last administered on 12/28/18at 16:24; Start 12/28/18 at 16:15; Stop 12/28/18 at 17:14; Status DC Metronidazole 100 ml @ 100 mls/hr 1X ONCE IV Last administered on 12/28/18at 16:27; Start 12/28/18 at 16:15; Stop 12/28/18 at 17:14; Status DC Ondansetron HCl (Zofran) 4 mg PRN Q8HRS PRN IV NAUSEA/VOMITING; Start 12/28/18 at 16:30; Stop 12/28/18 at 19:34; Status DC Morphine Sulfate (Morphine Sulfate) 4 mg PRN Q2HR PRN IV PAIN Last administered on 12/29/18at 12:04; Start 12/28/18 at 16:30; Stop 12/29/18 at 16:29; Status DC Sodium Chloride 1,000 ml @ 125 mls/hr Q8H IV Last administered on 12/29/18 08:17; Start 12/28/18 at 16:30; Stop 12/29/18 at 16:29; Status DC Acetaminophen (Tylenol) 650 mg PRN Q4HRS PRN PO FEVER; Start 12/28/18 at 16:30; Stop 12/28/18 at 19:35; Status DC Ciprofloxacin/ Dextrose 200 ml @ 200 mls/hr Q12HR IV Last administered on 12/30/18 08:17; Start 12/29/18 at 09:00 Metronidazole 100 ml @ 100 mls/hr Q12HR IV Last administered on 12/30/18 08:18; Start 12/29/18 at 09:00 Sodium Chloride (Normal Saline Flush 3ml) 3 ml QSHIFT PRN IV AFTER MEDS AND BLOOD DRAWS; Start 12/28/18 at 19:30 Ondansetron HCl (Zofran) 4 mg PRN Q4HRS PRN IV NAUSEA/VOMITING; Start 12/28/18 at 19:30 Zolpidem Tartrate (Ambien) 5 mg PRN QHS PRN PO INSOMNIA Last administered on 12/29/18 20:07; Start 12/28/18 at 19:30 Acetaminophen (Tylenol) 650 mg PRN Q4HRS PRN PO TEMP OVER 100.4F OR MILD PAIN Last administered on 12/29/18 23:36; Start 12/28/18 at 19:30 Clonidine HCl (Catapres) 0.1 mg PRN Q6HRS PRN PO SBP>160 OR DBP>90; Start 12/28/18 at 19:30 Docusate Sodium (Colace) 100 mg PRN BID PRN PO CONSTIPATION; Start 12/28/18 at 19:30 Albuterol/ Ipratropium (Duoneb) 3 ml Q4HRS NEB Last administered on 12/30/18 07:13; Start 12/28/18 at 20:00 Guaifenesin (Robitussin) 200 mg PRN Q4HRS PRN PO COUGH; Start 12/28/18 at 19:30 Lorazepam (Ativan) 0.5 mg PRN Q4HRS PRN PO ANXIETY / AGITATION Last administered on 12/29/18 23:35; Start 12/28/18 at 19:30 Enoxaparin Sodium (Lovenox 40mg Syringe) 40 mg QHS SQ Last administered on 12/29/18 20:08; Start 12/28/18 at 21:00 Polyethylene Glycol (miraLAX PACKET) 17 gm BID PO Last administered on 12/30/18 08:14; Start 12/29/18 at 21:00 Lactobacillus Rhamnosus (Culturelle) 1 cap BID PO Last administered on 12/30/18 08:14; Start 12/29/18 at 21:00 Active Scripts Active Reported Zofran (Ondansetron Hcl) 4 Mg Tablet 1 Tab PO Q6HRS Mihaela-D 24 Hour Tablet (Fexofenadine/Pseudoephedrine) 1 Each Tab.er.24h 1 Tab PO DAILY Symbicort 160-4.5 Mcg Inhaler (Budesonide/Formoterol Fumarate) 10.2 Gm Hfa.aer.ad 2 Puff IH BID Adderall 30 Mg Tablet (Dextroamphetamine/Amphetamine) 30 Mg Tablet 30 Mg PO DAILY16 Adderall 30 Mg Tablet (Dextroamphetamine/Amphetamine) 30 Mg Tablet 60 Mg PO DAILY08 Vitals/I & O Vital Sign - Last 24 Hours 12/29/18 12/29/18 12/29/18 12/29/18 11:00 11:28 12:04 12:34 Temp 99.3 99.3 Pulse 70 Resp 16 B/P (MAP) 122/62 (82) Pulse Ox 92 95 O2 Delivery Room Air Room Air Room Air Room Air 12/29/18 12/29/18 12/29/18 12/29/18 14:58 15:46 19:00 19:42 Temp 98.3 98.7 98.3 98.7 Pulse 66 68 Resp 18 14 B/P (MAP) 98/38 (58) 135/51 (79) Pulse Ox 92 95 93 O2 Delivery Room Air Room Air Room Air Room Air 12/29/18 12/29/18 12/30/18 12/30/18 19:54 23:00 03:00 07:00 Temp 98.2 98.4 99.5 98.2 98.4 99.5 Pulse 80 74 94 Resp 18 20 20 B/P (MAP) 129/76 (93) 107/42 (63) 122/65 (84) Pulse Ox 100 90 86 90 O2 Delivery Room Air Nasal Cannula Nasal Cannula Room Air O2 Flow Rate 2.0 2.0 12/30/18 07:15 Pulse Ox 95 O2 Delivery Room Air Intake and Output 12/29/18 12/29/18 12/30/18 15:00 23:00 07:00 Intake Total 0 ml 950 ml 520 ml Balance 0 ml 950 ml 520 ml ETHAN CARR MD December 30, 2018 10:16
[2018-12-30 11:00] VITALS: BP 115/52
[2018-12-30] MEDS ORDERED: MINERAL OIL/PETROLATUM,WHITE OPHTH OINT 3.5GM TUBE. OU PRN (12:00)
[2018-12-30] MEDS ORDERED: POLYVINYL ALCOHOL 1.4% OPHTH SOLUTION 15ML BOTTLE. OU PRN (14:30)
[2018-12-30] MEDS: CETIRIZINE HCL 10 MG TABLET. PO SCH (14:47)
[2018-12-30] MEDS: ACETAMINOPHEN 325 MG TABLET. PO PRN ×2 (14:47→21:53)
[2018-12-30 14:50] VITALS: BP 111/54
[2018-12-30] MEDS ORDERED: NON FORMULARY ITEM (Dextroamphetamine/Amphetamine (Adderall 30 Mg Tablet) 30 MG) PO SCH (16:00)
[2018-12-30 19:00] VITALS: BP 111/37
[2018-12-30] MEDS: ZOLPIDEM 5 MG TABLET. PO PRN (21:53)
[2018-12-30] MEDS: ENOXAPARIN 40 MG/0.4 ML SYRINGE. SQ SCH (21:53)
[2018-12-30] MEDS: LORazepam 0.5 MG TABLET PO PRN (21:53)
[2018-12-30] MEDS: PSEUDOEPHEDRINE ER 120 MG TABLET.ER. PO SCH (21:59)
[2018-12-30 23:00] VITALS: BP 108/43
[2018-12-31 03:00] VITALS: BP 99/39
[2018-12-31] MEDS: IPRATRPIUM/ALBUTEROL 0.5/2.5MG 3 ML NEBU. NEB SCH ×5 (04:00→20:12)
[2018-12-31 05:04] LABS: BASO % 1 % (0-3); EOS # 0.2 x10^3/uL (0.0-0.7); EOS % 4 % (0-3); HEMATOCRIT 29.5 % (36.0-47.0); HEMOGLOBIN 10.1 g/dL (12.0-15.5); LYMPH # 0.9 x10^3/uL (1.0-4.8); LYMPH % 15 % (24-48); MEAN CORPUSCULAR HEMOGLOBIN 29 pg (25-35); MEAN CORPUSCULAR HGB CONC 34 g/dL (31-37); MEAN CORPUSCULAR VOLUME 86 fL (79-100); MONO # 0.7 x10^3/uL (0.0-1.1); MONO % 12 % (0-9); NEUT # 4.1 x10^3uL (1.8-7.7); NEUT % 69 % (31-73); PLATELET COUNT 259 x10^3/uL (140-400); RED BLOOD COUNT 3.43 x10^6/uL (3.50-5.40); RED CELL DISTRIBUTION WIDTH 14.8 % (11.5-14.5)
[2018-12-31 07:00] VITALS: BP 124/65
[2018-12-31] MEDS: LACTOBACILLUS RHAMNOSUS GG 1 CAPSULE. PO SCH ×2 (07:57→21:04)
[2018-12-31] MEDS: PSEUDOEPHEDRINE ER 120 MG TABLET.ER. PO SCH ×2 (07:57→21:05)
[2018-12-31] MEDS: CIPROFLOXACIN 400MG PREMIX 200 ML IV SCH ×2 (07:57→21:04)
[2018-12-31] MEDS: CETIRIZINE HCL 10 MG TABLET. PO SCH (07:57)
[2018-12-31] MEDS: POLYETHYLENE GLYCOL 3350 17 GM PACKET. PO SCH ×2 (07:58→21:05)
[2018-12-31] MEDS ORDERED: DEXTROAMPHETAMINE PO SCH (08:00)
[2018-12-31] MEDS ORDERED: AMPHETAMINE PO SCH (08:00)
[2018-12-31] MEDS: ACETAMINOPHEN 325 MG TABLET. PO PRN ×3 (08:07→21:05)
--- NOTE | 2018-12-31 10:13 | PDOC ---
PROGRESS NOTES History of Present Illness History of Present Illness VTE Prophylaxis Ordered VTE Prophylaxis Devices: Yes VTE Pharmacological Prophylaxi: Yes Assessment/Plan Assessment/Plan IMPRESSION: 1.ACUTE Sigmoid diverticulosis with extensive mural thickening and paracolic inflammation related to the proximal to mid sigmoid colon, compatible with acute diverticulitis. The possibility of underlying colonic neoplasm cannot be excluded. 2. Interval repair of the patient's large ventral hernia since 01/25/2018. 3. UTI 4. SEPSIS 5. morbid obesity 6. tobacco abuse 7. NORMOCYTIC ANEMIA 12/30 LLQ tenderness persists 12/31 pain awakens her at high at least x 2, pain is 6/10 today, no BM PLAN 1. sips liquids 2. IV FLUID SUPPORT 3. IV ANTIBIOTICS, CIPRO, FLAGYL 4. GI CONSULT 5. DVT prophylaxis 6. gi prophylaxis 7. home meds 8. blood culture 46 min pt exam, chart review, > 50% of time spent with exam, chart review, pt care coordination Vitals Vitals Vital Signs Date Time Temp Pulse Resp B/P (MAP) Pulse Ox O2 Delivery O2 Flow Rate FiO2 12/31/18 08:44 95 Room Air 12/31/18 07:00 98.3 74 16 124/65 (84) 98.3 12/30/18 12:00 2.0 Physical Exam General: Alert, Oriented X3, Cooperative, mild distress Heart: Regular rate, Normal S1, Normal S2 Lungs: Clear, Wheezing Abdomen: Normal bowel sounds, Soft, No hepatosplenomegaly, Other (llq tender no rebound) Extremities: No clubbing, No cyanosis, No edema Skin: No rashes, No breakdown, No significant lesion Labs LABS Laboratory Tests Test 12/31/18 04:20 White Blood Count 6.0 x10^3/uL (4.0-11.0) Red Blood Count 3.43 x10^6/uL (3.50-5.40) Hemoglobin 10.1 g/dL (12.0-15.5) Hematocrit 29.5 % (36.0-47.0) Mean Corpuscular Volume 86 fL (79-100) Mean Corpuscular Hemoglobin 29 pg (25-35) Mean Corpuscular Hemoglobin Concent 34 g/dL (31-37) Red Cell Distribution Width 14.8 % (11.5-14.5) Platelet Count 259 x10^3/uL (140-400) Neutrophils (%) (Auto) 69 % (31-73) Lymphocytes (%) (Auto) 15 % (24-48) Monocytes (%) (Auto) 12 % (0-9) Eosinophils (%) (Auto) 4 % (0-3) Basophils (%) (Auto) 1 % (0-3) Neutrophils # (Auto) 4.1 x10^3uL (1.8-7.7) Lymphocytes # (Auto) 0.9 x10^3/uL (1.0-4.8) Monocytes # (Auto) 0.7 x10^3/uL (0.0-1.1) Eosinophils # (Auto) 0.2 x10^3/uL (0.0-0.7) Basophils # (Auto) 0.0 x10^3/uL (0.0-0.2) Assessment and Plan Assessmemt and Plan Problems Medical Problems: (1) Acute diverticulitis Status: Acute (2) Urinary tract infection Status: Acute Comment Review of Relevant I have reviewed the following items ron (where applicable) has been applied. Labs Laboratory Tests Test 12/30/18 03:55 12/31/18 04:20 White Blood Count 8.5 x10^3/uL (4.0-11.0) 6.0 x10^3/uL (4.0-11.0) Red Blood Count 3.42 x10^6/uL (3.50-5.40) 3.43 x10^6/uL (3.50-5.40) Hemoglobin 10.2 g/dL (12.0-15.5) 10.1 g/dL (12.0-15.5) Hematocrit 29.7 % (36.0-47.0) 29.5 % (36.0-47.0) Mean Corpuscular Volume 87 fL (79-100) 86 fL (79-100) Mean Corpuscular Hemoglobin 30 pg (25-35) 29 pg (25-35) Mean Corpuscular Hemoglobin Concent 34 g/dL (31-37) 34 g/dL (31-37) Red Cell Distribution Width 14.9 % (11.5-14.5) 14.8 % (11.5-14.5) Platelet Count 240 x10^3/uL (140-400) 259 x10^3/uL (140-400) Neutrophils (%) (Auto) 75 % (31-73) 69 % (31-73) Lymphocytes (%) (Auto) 11 % (24-48) 15 % (24-48) Monocytes (%) (Auto) 11 % (0-9) 12 % (0-9) Eosinophils (%) (Auto) 3 % (0-3) 4 % (0-3) Basophils (%) (Auto) 1 % (0-3) 1 % (0-3) Neutrophils # (Auto) 6.4 x10^3uL (1.8-7.7) 4.1 x10^3uL (1.8-7.7) Lymphocytes # (Auto) 0.9 x10^3/uL (1.0-4.8) 0.9 x10^3/uL (1.0-4.8) Monocytes # (Auto) 0.9 x10^3/uL (0.0-1.1) 0.7 x10^3/uL (0.0-1.1) Eosinophils # (Auto) 0.2 x10^3/uL (0.0-0.7) 0.2 x10^3/uL (0.0-0.7) Basophils # (Auto) 0.1 x10^3/uL (0.0-0.2) 0.0 x10^3/uL (0.0-0.2) Sodium Level 138 mmol/L (136-145) Potassium Level 3.8 mmol/L (3.5-5.1) Chloride Level 103 mmol/L (98-107) Carbon Dioxide Level 24 mmol/L (21-32) Anion Gap 11 (6-14) Blood Urea Nitrogen 7 mg/dL (7-20) Creatinine 0.7 mg/dL (0.6-1.0) Estimated GFR (Cockcroft-Gault) 85.4 BUN/Creatinine Ratio 10 (6-20) Glucose Level 96 mg/dL (70-99) Calcium Level 8.8 mg/dL (8.5-10.1) Total Bilirubin 0.4 mg/dL (0.2-1.0) Aspartate Amino Transf (AST/SGOT) 23 U/L (15-37) Alanine Aminotransferase (ALT/SGPT) 27 U/L (14-59) Alkaline Phosphatase 78 U/L (46-116) Total Protein 6.6 g/dL (6.4-8.2) Albumin 2.8 g/dL (3.4-5.0) Albumin/Globulin Ratio 0.7 (1.0-1.7) Laboratory Tests Test 12/31/18 04:20 White Blood Count 6.0 x10^3/uL (4.0-11.0) Red Blood Count 3.43 x10^6/uL (3.50-5.40) Hemoglobin 10.1 g/dL (12.0-15.5) Hematocrit 29.5 % (36.0-47.0) Mean Corpuscular Volume 86 fL (79-100) Mean Corpuscular Hemoglobin 29 pg (25-35) Mean Corpuscular Hemoglobin Concent 34 g/dL (31-37) Red Cell Distribution Width 14.8 % (11.5-14.5) Platelet Count 259 x10^3/uL (140-400) Neutrophils (%) (Auto) 69 % (31-73) Lymphocytes (%) (Auto) 15 % (24-48) Monocytes (%) (Auto) 12 % (0-9) Eosinophils (%) (Auto) 4 % (0-3) Basophils (%) (Auto) 1 % (0-3) Neutrophils # (Auto) 4.1 x10^3uL (1.8-7.7) Lymphocytes # (Auto) 0.9 x10^3/uL (1.0-4.8) Monocytes # (Auto) 0.7 x10^3/uL (0.0-1.1) Eosinophils # (Auto) 0.2 x10^3/uL (0.0-0.7) Basophils # (Auto) 0.0 x10^3/uL (0.0-0.2) Microbiology 12/28/18 Blood Culture - Preliminary, Resulted NO GROWTH AFTER 2 DAYS 12/28/18 Urine Culture - Final, Complete 12/28/18 Urine Culture Result 1 (AUDREY) - Final, Complete Medications Current Medications Fentanyl Citrate (Fentanyl 2ml Vial) 50 mcg PRN Q15MIN PRN IV PAIN GREATER THAN 3/10 Last administered on 12/28/18at 16:22; Start 12/28/18 at 14:30; Stop 12/29/18 at 14:29; Status DC Sodium Chloride 1,000 ml @ 1,000 mls/hr Q1H IV Last administered on 12/28/18 14:37; Start 12/28/18 at 14:24; Stop 12/28/18 at 15:23; Status DC Ondansetron HCl (Zofran) 4 mg 1X ONCE IV Last administered on 12/28/18 14:39; Start 12/28/18 at 14:30; Stop 12/28/18 at 14:31; Status DC Iohexol (Omnipaque 300 Mg/ml) 75 ml 1X ONCE IV Last administered on 12/28/18 15:29; Start 12/28/18 at 14:45; Stop 12/28/18 at 14:46; Status DC Info (CONTRAST GIVEN -- Rx MONITORING) 1 each PRN DAILY PRN MC SEE COMMENTS; Start 12/28/18 at 14:45; Stop 12/30/18 at 14:44; Status DC Ciprofloxacin/ Dextrose 200 ml @ 200 mls/hr 1X ONCE IV Last administered on 12/28/18 16:24; Start 12/28/18 at 16:15; Stop 12/28/18 at 17:14; Status DC Metronidazole 100 ml @ 100 mls/hr 1X ONCE IV Last administered on 12/28/18 16:27; Start 12/28/18 at 16:15; Stop 12/28/18 at 17:14; Status DC Ondansetron HCl (Zofran) 4 mg PRN Q8HRS PRN IV NAUSEA/VOMITING; Start 12/28/18 at 16:30; Stop 12/28/18 at 19:34; Status DC Morphine Sulfate (Morphine Sulfate) 4 mg PRN Q2HR PRN IV PAIN Last administered on 12/29/18 12:04; Start 12/28/18 at 16:30; Stop 12/29/18 at 16:29; Status DC Sodium Chloride 1,000 ml @ 125 mls/hr Q8H IV Last administered on 12/29/18 08:17; Start 12/28/18 at 16:30; Stop 12/29/18 at 16:29; Status DC Acetaminophen (Tylenol) 650 mg PRN Q4HRS PRN PO FEVER; Start 12/28/18 at 16:30; Stop 12/28/18 at 19:35; Status DC Ciprofloxacin/ Dextrose 200 ml @ 200 mls/hr Q12HR IV Last administered on 12/31/18 07:57; Start 12/29/18 at 09:00 Metronidazole 100 ml @ 100 mls/hr Q12HR IV Last administered on 12/31/18 07:58; Start 12/29/18 at 09:00 Sodium Chloride (Normal Saline Flush 3ml) 3 ml QSHIFT PRN IV AFTER MEDS AND BLOOD DRAWS; Start 12/28/18 at 19:30 Ondansetron HCl (Zofran) 4 mg PRN Q4HRS PRN IV NAUSEA/VOMITING; Start 12/28/18 at 19:30 Zolpidem Tartrate (Ambien) 5 mg PRN QHS PRN PO INSOMNIA Last administered on 12/30/18 21:53; Start 12/28/18 at 19:30 Acetaminophen (Tylenol) 650 mg PRN Q4HRS PRN PO TEMP OVER 100.4F OR MILD PAIN Last administered on 12/31/18 08:07; Start 12/28/18 at 19:30 Clonidine HCl (Catapres) 0.1 mg PRN Q6HRS PRN PO SBP>160 OR DBP>90; Start 12/28/18 at 19:30 Docusate Sodium (Colace) 100 mg PRN BID PRN PO CONSTIPATION; Start 12/28/18 at 19:30 Albuterol/ Ipratropium (Duoneb) 3 ml Q4HRS NEB Last administered on 12/31/18 08:43; Start 12/28/18 at 20:00 Guaifenesin (Robitussin) 200 mg PRN Q4HRS PRN PO COUGH; Start 12/28/18 at 19:30 Lorazepam (Ativan) 0.5 mg PRN Q4HRS PRN PO ANXIETY / AGITATION Last administered on 12/30/18 21:53; Start 12/28/18 at 19:30 Enoxaparin Sodium (Lovenox 40mg Syringe) 40 mg QHS SQ Last administered on 12/30/18 21:53; Start 12/28/18 at 21:00 Polyethylene Glycol (miraLAX PACKET) 17 gm BID PO Last administered on 12/31/18 07:58; Start 12/29/18 at 21:00 Lactobacillus Rhamnosus (Culturelle) 1 cap BID PO Last administered on 12/31/18at 07:57; Start 12/29/18 at 21:00 Non-Formulary Medication (Dextroamphetamine/ Amphetamine (Adderall 30 Mg Tablet)) 30 mg DAILY16 PO ; Start 12/30/18 at 16:00; Stop 12/30/18 at 17:23; Status DC Non-Formulary Medication (Dextroamphetamine/ Amphetamine (Adderall 30 Mg Tablet)) 60 mg DAILY08 PO ; Start 12/31/18 at 08:00; Status UNV Pseudoephedrine HCl (Sudafed 12-Hour) 120 mg BID PO Last administered on 12/31/18at 07:57; Start 12/30/18 at 21:00 Multi-Ingred Cream/Lotion/Oil/ Oint (Artificial Tears Eye Ointment) 1 paras PRN Q1HR PRN OU DRY EYE; Start 12/30/18 at 12:00; Stop 12/30/18 at 14:26; Status DC Cetirizine HCl (ZyrTEC) 10 mg DAILY PO Last administered on 12/31/18at 07:57; Start 12/30/18 at 13:00 Artificial Tears (Artificial Tears) 1 drop PRN Q15MIN PRN OU DRY EYE Last administered on 12/30/18at 15:45; Start 12/30/18 at 14:30 Active Scripts Active Reported Zofran (Ondansetron Hcl) 4 Mg Tablet 1 Tab PO Q6HRS Mihaela-D 24 Hour Tablet (Fexofenadine/Pseudoephedrine) 1 Each Tab.er.24h 1 Tab PO DAILY Symbicort 160-4.5 Mcg Inhaler (Budesonide/Formoterol Fumarate) 10.2 Gm Hfa.aer.ad 2 Puff IH BID Adderall 30 Mg Tablet (Dextroamphetamine/Amphetamine) 30 Mg Tablet 30 Mg PO DAILY16 Adderall 30 Mg Tablet (Dextroamphetamine/Amphetamine) 30 Mg Tablet 60 Mg PO DAILY08 Vitals/I & O Vital Sign - Last 24 Hours 12/30/18 12/30/18 12/30/18 12/30/18 11:00 11:06 12:00 14:50 Temp 98.0 98.9 98.0 98.9 Pulse 74 67 Resp 18 18 B/P (MAP) 115/52 (73) 111/54 (73) Pulse Ox 90 95 O2 Delivery Room Air Room Air Room Air Room Air O2 Flow Rate 2.0 12/30/18 12/30/18 12/30/18 12/30/18 16:02 19:00 20:00 20:11 Temp 97.5 97.5 Pulse 63 Resp 18 B/P (MAP) 111/37 (61) Pulse Ox 93 96 O2 Delivery Room Air Room Air Room Air Room Air 12/30/18 12/31/18 12/31/18 12/31/18 23:00 03:00 07:00 08:44 Temp 98.5 97.8 98.3 98.5 97.8 98.3 Pulse 64 72 74 Resp 16 16 16 B/P (MAP) 108/43 (64) 99/39 (59) 124/65 (84) Pulse Ox 97 93 92 95 O2 Delivery Room Air Room Air Room Air Room Air Intake and Output 12/30/18 12/30/18 12/31/18 15:00 23:00 07:00 Intake Total 1050 ml 700 ml 1700 ml Output Total 200 ml Balance 1050 ml 500 ml 1700 ml ETHAN CARR MD December 31, 2018 10:13
[2018-12-31 11:02] VITALS: BP 119/58
--- NOTE | 2018-12-31 12:13 | PDOC2 ---
NANETTE OWENS STAFFING EXECUTIVE 12/31/18 1213: CONSULT Date of Consult Date of Consult DATE: 12/31/18 TIME: 12:07 Reason for Consult Reason for Consult: diverticulitis Referring Physician Referring Physician: Dr Mathew Identification/Chief Complaint Chief Complaint abdominal pain Source Source: Chart review, Patient History of Present Illness Reason for Visit: 3 weeks lower abdomen pain, pressure vaginally, rectal. She did have worsening pain over the weekend. She had once episode of bloody stool. Reports 1st episode of diverticulitis. Last colonoscopy 2013, can not remember findings, however repeat 5 years. Pain still lower abdomen, however gradual improvement. Past Medical History Rheumatologic: Fibromyalgia Infectious disease: No pertinent hx Past Surgical History Past Surgical History: Cholecystectomy, , Hysterectomy, Other (VIH, multiple other hernias) Family History Family History: High Cholestrol, Hypertension Social History <1 pack per day ALCOHOL: occassional Drugs: None Current Problem List Problem List Problems Medical Problems: (1) Acute diverticulitis Status: Acute (2) Urinary tract infection Status: Acute Current Medications Current Medications Current Medications Fentanyl Citrate (Fentanyl 2ml Vial) 50 mcg PRN Q15MIN PRN IV PAIN GREATER THAN 3/10 Last administered on 12/28/18at 16:22; Start 12/28/18 at 14:30; Stop 12/29/18 at 14:29; Status DC Sodium Chloride 1,000 ml @ 1,000 mls/hr Q1H IV Last administered on 12/28/18at 14:37; Start 12/28/18 at 14:24; Stop 12/28/18 at 15:23; Status DC Ondansetron HCl (Zofran) 4 mg 1X ONCE IV Last administered on 12/28/18at 14:39; Start 12/28/18 at 14:30; Stop 12/28/18 at 14:31; Status DC Iohexol (Omnipaque 300 Mg/ml) 75 ml 1X ONCE IV Last administered on 12/28/18at 15:29; Start 12/28/18 at 14:45; Stop 12/28/18 at 14:46; Status DC Info (CONTRAST GIVEN -- Rx MONITORING) 1 each PRN DAILY PRN MC SEE COMMENTS; Start 12/28/18 at 14:45; Stop 12/30/18 at 14:44; Status DC Ciprofloxacin/ Dextrose 200 ml @ 200 mls/hr 1X ONCE IV Last administered on 12/28/18 16:24; Start 12/28/18 at 16:15; Stop 12/28/18 at 17:14; Status DC Metronidazole 100 ml @ 100 mls/hr 1X ONCE IV Last administered on 12/28/18at 16:27; Start 12/28/18 at 16:15; Stop 12/28/18 at 17:14; Status DC Ondansetron HCl (Zofran) 4 mg PRN Q8HRS PRN IV NAUSEA/VOMITING; Start 12/28/18 at 16:30; Stop 12/28/18 at 19:34; Status DC Morphine Sulfate (Morphine Sulfate) 4 mg PRN Q2HR PRN IV PAIN Last administered on 12/29/18at 12:04; Start 12/28/18 at 16:30; Stop 12/29/18 at 16:29; Status DC Sodium Chloride 1,000 ml @ 125 mls/hr Q8H IV Last administered on 12/29/18at 08:17; Start 12/28/18 at 16:30; Stop 12/29/18 at 16:29; Status DC Acetaminophen (Tylenol) 650 mg PRN Q4HRS PRN PO FEVER; Start 12/28/18 at 16:30; Stop 12/28/18 at 19:35; Status DC Ciprofloxacin/ Dextrose 200 ml @ 200 mls/hr Q12HR IV Last administered on 12/31/18 07:57; Start 12/29/18 at 09:00 Metronidazole 100 ml @ 100 mls/hr Q12HR IV Last administered on 12/31/18 07: 58; Start 12/29/18 at 09:00 Sodium Chloride (Normal Saline Flush 3ml) 3 ml QSHIFT PRN IV AFTER MEDS AND BLOOD DRAWS; Start 12/28/18 at 19:30 Ondansetron HCl (Zofran) 4 mg PRN Q4HRS PRN IV NAUSEA/VOMITING; Start 12/28/18 at 19:30 Zolpidem Tartrate (Ambien) 5 mg PRN QHS PRN PO INSOMNIA Last administered on 12/30/18at 21:53; Start 12/28/18 at 19:30 Acetaminophen (Tylenol) 650 mg PRN Q4HRS PRN PO TEMP OVER 100.4F OR MILD PAIN Last administered on 12/31/18 08:07; Start 12/28/18 at 19:30 Clonidine HCl (Catapres) 0.1 mg PRN Q6HRS PRN PO SBP>160 OR DBP>90; Start 12/28/18 at 19:30 Docusate Sodium (Colace) 100 mg PRN BID PRN PO CONSTIPATION; Start 12/28/18 at 19:30 Albuterol/ Ipratropium (Duoneb) 3 ml Q4HRS NEB Last administered on 12/31/18at 11:27; Start 12/28/18 at 20:00 Guaifenesin (Robitussin) 200 mg PRN Q4HRS PRN PO COUGH; Start 12/28/18 at 19:30 Lorazepam (Ativan) 0.5 mg PRN Q4HRS PRN PO ANXIETY / AGITATION Last administered on 12/30/18 21:53; Start 12/28/18 at 19:30 Enoxaparin Sodium (Lovenox 40mg Syringe) 40 mg QHS SQ Last administered on 12/30/18 21:53; Start 12/28/18 at 21:00 Polyethylene Glycol (miraLAX PACKET) 17 gm BID PO Last administered on 12/31/18 07:58; Start 12/29/18 at 21:00 Lactobacillus Rhamnosus (Culturelle) 1 cap BID PO Last administered on 12/31/18 07:57; Start 12/29/18 at 21:00 Non-Formulary Medication (Dextroamphetamine/ Amphetamine (Adderall 30 Mg Tablet)) 30 mg DAILY16 PO ; Start 12/30/18 at 16:00; Stop 12/30/18 at 17:23; Status DC Non-Formulary Medication (Dextroamphetamine/ Amphetamine (Adderall 30 Mg Tablet)) 60 mg DAILY08 PO ; Start 12/31/18 at 08:00; Status UNV Pseudoephedrine HCl (Sudafed 12-Hour) 120 mg BID PO Last administered on 12/31/18 07:57; Start 12/30/18 at 21:00 Multi-Ingred Cream/Lotion/Oil/ Oint (Artificial Tears Eye Ointment) 1 paras PRN Q1HR PRN OU DRY EYE; Start 12/30/18 at 12:00; Stop 12/30/18 at 14:26; Status DC Cetirizine HCl (ZyrTEC) 10 mg DAILY PO Last administered on 12/31/18at 07:57; Start 12/30/18 at 13:00 Artificial Tears (Artificial Tears) 1 drop PRN Q15MIN PRN OU DRY EYE Last administered on 12/30/18at 15:45; Start 12/30/18 at 14:30 Active Scripts Active Reported Zofran (Ondansetron Hcl) 4 Mg Tablet 1 Tab PO Q6HRS Mihaela-D 24 Hour Tablet (Fexofenadine/Pseudoephedrine) 1 Each Tab.er.24h 1 Tab PO DAILY Symbicort 160-4.5 Mcg Inhaler (Budesonide/Formoterol Fumarate) 10.2 Gm Hfa.aer.ad 2 Puff IH BID Adderall 30 Mg Tablet (Dextroamphetamine/Amphetamine) 30 Mg Tablet 30 Mg PO DAILY16 Adderall 30 Mg Tablet (Dextroamphetamine/Amphetamine) 30 Mg Tablet 60 Mg PO DAILY08 Allergies Allergies: Coded Allergies: cephalexin (Verified Allergy, Severe, Nausea and Vomiting, 02/05/18) Sulfa (Sulfonamide Antibiotics) (Verified Allergy, Intermediate, 12/31/18) clindamycin (Verified Allergy, Intermediate, 01/25/18) latex (Verified Allergy, Intermediate, 12/31/18) ROS General: YES: Chills; No: Other (fevers) PSYCHOLOGICAL ROS: No: Anxiety, Depression Eyes: No Blurry vision, No Double vision HEENT: No: Heacaches, Sore Throat Hematological and Lymphatic: No: Bleeding Problems Respiratory: No: Cough, Shortness of breath Gastrointestinal: Yes Other (see hpi) Genitourinary: No Dysuria, No Hematuria Musculoskeletal: No Joint Pain, No Muscle Pain Neurological: No Impaired Coord/balance Skin: No Pruritus, No Rash Physical Exam General: Alert, Oriented X3, Cooperative, No acute distress HEENT: PERRLA, Mucous membr. moist/pink Lungs: Clear to auscultation, Normal air movement Heart: Regular rate, Normal S1, Normal S2, No murmurs Abdomen: Soft, Other (ND, tender to lower abdomen, no guarding ) Extremities: No clubbing, No cyanosis Skin: No rashes, No breakdown Neuro: Normal gait, Normal speech Psych/Mental Status: Mental status NL, Mood NL MUSCULOSKELETAL: No deformity, No swelling Vitals VITALS Vital Signs Date Time Temp Pulse Resp B/P (MAP) Pulse Ox O2 Delivery O2 Flow Rate FiO2 12/31/18 11:27 97 Room Air 12/31/18 11:02 98.4 74 14 119/58 (78) 2.0 98.4 Labs Labs Laboratory Tests Test 12/30/18 03:55 12/31/18 04:20 White Blood Count 8.5 x10^3/uL (4.0-11.0) 6.0 x10^3/uL (4.0-11.0) Red Blood Count 3.42 x10^6/uL (3.50-5.40) 3.43 x10^6/uL (3.50-5.40) Hemoglobin 10.2 g/dL (12.0-15.5) 10.1 g/dL (12.0-15.5) Hematocrit 29.7 % (36.0-47.0) 29.5 % (36.0-47.0) Mean Corpuscular Volume 87 fL (79-100) 86 fL (79-100) Mean Corpuscular Hemoglobin 30 pg (25-35) 29 pg (25-35) Mean Corpuscular Hemoglobin Concent 34 g/dL (31-37) 34 g/dL (31-37) Red Cell Distribution Width 14.9 % (11.5-14.5) 14.8 % (11.5-14.5) Platelet Count 240 x10^3/uL (140-400) 259 x10^3/uL (140-400) Neutrophils (%) (Auto) 75 % (31-73) 69 % (31-73) Lymphocytes (%) (Auto) 11 % (24-48) 15 % (24-48) Monocytes (%) (Auto) 11 % (0-9) 12 % (0-9) Eosinophils (%) (Auto) 3 % (0-3) 4 % (0-3) Basophils (%) (Auto) 1 % (0-3) 1 % (0-3) Neutrophils # (Auto) 6.4 x10^3uL (1.8-7.7) 4.1 x10^3uL (1.8-7.7) Lymphocytes # (Auto) 0.9 x10^3/uL (1.0-4.8) 0.9 x10^3/uL (1.0-4.8) Monocytes # (Auto) 0.9 x10^3/uL (0.0-1.1) 0.7 x10^3/uL (0.0-1.1) Eosinophils # (Auto) 0.2 x10^3/uL (0.0-0.7) 0.2 x10^3/uL (0.0-0.7) Basophils # (Auto) 0.1 x10^3/uL (0.0-0.2) 0.0 x10^3/uL (0.0-0.2) Sodium Level 138 mmol/L (136-145) Potassium Level 3.8 mmol/L (3.5-5.1) Chloride Level 103 mmol/L (98-107) Carbon Dioxide Level 24 mmol/L (21-32) Anion Gap 11 (6-14) Blood Urea Nitrogen 7 mg/dL (7-20) Creatinine 0.7 mg/dL (0.6-1.0) Estimated GFR (Cockcroft-Gault) 85.4 BUN/Creatinine Ratio 10 (6-20) Glucose Level 96 mg/dL (70-99) Calcium Level 8.8 mg/dL (8.5-10.1) Total Bilirubin 0.4 mg/dL (0.2-1.0) Aspartate Amino Transf (AST/SGOT) 23 U/L (15-37) Alanine Aminotransferase (ALT/SGPT) 27 U/L (14-59) Alkaline Phosphatase 78 U/L (46-116) Total Protein 6.6 g/dL (6.4-8.2) Albumin 2.8 g/dL (3.4-5.0) Albumin/Globulin Ratio 0.7 (1.0-1.7) Laboratory Tests Test 12/31/18 04:20 White Blood Count 6.0 x10^3/uL (4.0-11.0) Red Blood Count 3.43 x10^6/uL (3.50-5.40) Hemoglobin 10.1 g/dL (12.0-15.5) Hematocrit 29.5 % (36.0-47.0) Mean Corpuscular Volume 86 fL (79-100) Mean Corpuscular Hemoglobin 29 pg (25-35) Mean Corpuscular Hemoglobin Concent 34 g/dL (31-37) Red Cell Distribution Width 14.8 % (11.5-14.5) Platelet Count 259 x10^3/uL (140-400) Neutrophils (%) (Auto) 69 % (31-73) Lymphocytes (%) (Auto) 15 % (24-48) Monocytes (%) (Auto) 12 % (0-9) Eosinophils (%) (Auto) 4 % (0-3) Basophils (%) (Auto) 1 % (0-3) Neutrophils # (Auto) 4.1 x10^3uL (1.8-7.7) Lymphocytes # (Auto) 0.9 x10^3/uL (1.0-4.8) Monocytes # (Auto) 0.7 x10^3/uL (0.0-1.1) Eosinophils # (Auto) 0.2 x10^3/uL (0.0-0.7) Basophils # (Auto) 0.0 x10^3/uL (0.0-0.2) Assessment/Plan Assessment/Plan acute diverticulitis afebrile, normal WBC, continue abx, hopefully with resolve with abx management ETHAN ACHARYA MD 01/01/19 1208: CONSULT Assessment/Plan Assessment/Plan Patient seen and examined by me resting comfortably in bed and denies any nausea vomiting does have lower abdominal pain over the pubic symphysis tolerating clear liquids would like to have more area abdomen is soft nondistended normal active bowel sounds mildly tender to palpation over the pubic symphysis. With Nickels assessment and plan bowel rest antibiotics NANETTE OWENS STAFFING EXECUTIVE December 31, 2018 12:13 ETHAN ACHARYA MD January 01, 2019 12:08
--- NOTE | 2018-12-31 14:56 | PDOC ---
Subjective: Subjective: Tolerating full liquids, though has "lightning-like" pain in lower abdomen intermittently - goes to rectum and vagina. Feels better overall but still not great. Glad to not be at home with her roommate. Objective: Vital Signs: Vital Signs Date Time Temp Pulse Resp B/P (MAP) Pulse Ox O2 Delivery O2 Flow Rate FiO2 12/31/18 11:27 97 Room Air 12/31/18 11:02 98.4 74 14 119/58 (78) 2.0 98.4 Labs: Laboratory Tests Test 12/31/18 04:20 White Blood Count 6.0 x10^3/uL Red Blood Count 3.43 x10^6/uL Hemoglobin 10.1 g/dL Hematocrit 29.5 % Mean Corpuscular Volume 86 fL Mean Corpuscular Hemoglobin 29 pg Mean Corpuscular Hemoglobin Concent 34 g/dL Red Cell Distribution Width 14.8 % Platelet Count 259 x10^3/uL Neutrophils (%) (Auto) 69 % Lymphocytes (%) (Auto) 15 % Monocytes (%) (Auto) 12 % Eosinophils (%) (Auto) 4 % Basophils (%) (Auto) 1 % Neutrophils # (Auto) 4.1 x10^3uL Lymphocytes # (Auto) 0.9 x10^3/uL Monocytes # (Auto) 0.7 x10^3/uL Eosinophils # (Auto) 0.2 x10^3/uL Basophils # (Auto) 0.0 x10^3/uL URINE CULTURE Final Final report URINE CULTURE RES 1 Final Comment Mixed urogenital jonathan BLOOD CULTURE Preliminary NO GROWTH AFTER 2 DAYS PE: GEN: NAD LUNGS: CTAB HEART: RRR ABD: suprapubic tenderness, BS+, soft NEURO/PSYCH: A & O 3 A/P: Diverticulitis - ongoing lower abd pain Anemia CRC screen - last in 2013 -- Continue atbx. Check anemia parameters. Outpt colonoscopy. TAMANNA WATSON December 31, 2018 14:56
[2018-12-31 14:59] VITALS: BP 131/6
--- NOTE | 2018-12-31 15:14 | NUR ---
SW consulted regarding food stamps. Chart reviewed and discussed with pt at bedside. Pt stated she lives at home with a roommate. Pt reports she used to get food stamps but it stopped after the government shut down in August. ALEXIS provided pt with [facility] and local [facility] office information. Pt accepted resources and verbalized understanding. PT/OT pending. ALEXIS will await for PT/OT recommendation to assess skilled needs.
[2018-12-31 19:00] VITALS: BP 125/46
[2018-12-31] MEDS: LORazepam 0.5 MG TABLET PO PRN (21:04)
[2018-12-31] MEDS: ENOXAPARIN 40 MG/0.4 ML SYRINGE. SQ SCH (21:05)
[2018-12-31] MEDS: ZOLPIDEM 5 MG TABLET. PO PRN (21:05)
[2018-12-31 22:35] VITALS: BP 131/75
[2018-12-31] MEDS: BENZOCAINE 10% ORAL GEL 7GM TUBE. TP PRN (23:09)
[2019-01-01] MEDS: ACETAMINOPHEN 325 MG TABLET. PO PRN ×2 (01:00→18:02)
[2019-01-01 02:39] VITALS: BP 138/54
[2019-01-01] MEDS: IPRATRPIUM/ALBUTEROL 0.5/2.5MG 3 ML NEBU. NEB SCH ×7 (03:55→23:21)
[2019-01-01 04:17] LABS: BASO % 1 % (0-3); EOS # 0.2 x10^3/uL (0.0-0.7); EOS % 3 % (0-3); HEMATOCRIT 31.6 % (36.0-47.0); HEMOGLOBIN 10.5 g/dL (12.0-15.5); LYMPH # 1.1 x10^3/uL (1.0-4.8); LYMPH % 17 % (24-48); MEAN CORPUSCULAR HEMOGLOBIN 29 pg (25-35); MEAN CORPUSCULAR HGB CONC 33 g/dL (31-37); MEAN CORPUSCULAR VOLUME 86 fL (79-100); MONO # 0.7 x10^3/uL (0.0-1.1); MONO % 10 % (0-9); NEUT # 4.3 x10^3uL (1.8-7.7); NEUT % 69 % (31-73); PLATELET COUNT 310 x10^3/uL (140-400); RED BLOOD COUNT 3.67 x10^6/uL (3.50-5.40); RED CELL DISTRIBUTION WIDTH 14.6 % (11.5-14.5); WHITE BLOOD COUNT 6.2 x10^3/uL (4.0-11.0)
[2019-01-01 04:29] LABS: ALBUMIN 2.8 g/dL (3.4-5.0); ALBUMIN/GLOBULIN RATIO 0.7 (1.0-1.7); CALCIUM 9.2 mg/dL (8.5-10.1); CREATININE 0.7 mg/dL (0.6-1.0); GFR 85.4; POTASSIUM 3.6 mmol/L (3.5-5.1); TOTAL BILIRUBIN 0.3 mg/dL (0.2-1.0); TOTAL PROTEIN 6.8 g/dL (6.4-8.2)
[2019-01-01 06:30] VITALS: BP 130/58
[2019-01-01] MEDS: CETIRIZINE HCL 10 MG TABLET. PO SCH (08:55)
[2019-01-01] MEDS: PSEUDOEPHEDRINE ER 120 MG TABLET.ER. PO SCH ×2 (08:55→20:58)
[2019-01-01] MEDS: POLYETHYLENE GLYCOL 3350 17 GM PACKET. PO SCH ×2 (08:55→20:57)
[2019-01-01] MEDS: LACTOBACILLUS RHAMNOSUS GG 1 CAPSULE. PO SCH ×2 (08:55→20:58)
[2019-01-01] MEDS: CIPROFLOXACIN 400MG PREMIX 200 ML IV SCH ×2 (08:57→20:58)
--- NOTE | 2019-01-01 09:50 | PDOC ---
NANETTE OWENS SOLAR INSTALLATION TECHNICIAN 01/01/19 0950: SURGICAL PROGRESS NOTE Subjective intermittent sharp lower abdominal pain no nausea urinating well Vital Signs Vital Signs Date Time Temp Pulse Resp B/P (MAP) Pulse Ox O2 Delivery O2 Flow Rate FiO2 01/01/19 08:14 95 Room Air 01/01/19 06:30 98.3 67 16 130/58 (82) 98.3 12/31/18 14:59 2.0 I&O Intake and Output 01/01/19 07:00 Intake Total 1020 ml Output Total 1 ml Balance 1019 ml Intake Oral 720 ml IV Total 300 ml Stool Total 1 ml # Voids 6 General: Alert, Oriented X3, Cooperative, No acute distress Abdomen: Soft, Other (TTP lower abdomen) Labs Laboratory Tests Test 12/31/18 04:20 01/01/19 04:00 White Blood Count 6.0 x10^3/uL (4.0-11.0) 6.2 x10^3/uL (4.0-11.0) Red Blood Count 3.43 x10^6/uL (3.50-5.40) 3.67 x10^6/uL (3.50-5.40) Hemoglobin 10.1 g/dL (12.0-15.5) 10.5 g/dL (12.0-15.5) Hematocrit 29.5 % (36.0-47.0) 31.6 % (36.0-47.0) Mean Corpuscular Volume 86 fL (79-100) 86 fL (79-100) Mean Corpuscular Hemoglobin 29 pg (25-35) 29 pg (25-35) Mean Corpuscular Hemoglobin Concent 34 g/dL (31-37) 33 g/dL (31-37) Red Cell Distribution Width 14.8 % (11.5-14.5) 14.6 % (11.5-14.5) Platelet Count 259 x10^3/uL (140-400) 310 x10^3/uL (140-400) Neutrophils (%) (Auto) 69 % (31-73) 69 % (31-73) Lymphocytes (%) (Auto) 15 % (24-48) 17 % (24-48) Monocytes (%) (Auto) 12 % (0-9) 10 % (0-9) Eosinophils (%) (Auto) 4 % (0-3) 3 % (0-3) Basophils (%) (Auto) 1 % (0-3) 1 % (0-3) Neutrophils # (Auto) 4.1 x10^3uL (1.8-7.7) 4.3 x10^3uL (1.8-7.7) Lymphocytes # (Auto) 0.9 x10^3/uL (1.0-4.8) 1.1 x10^3/uL (1.0-4.8) Monocytes # (Auto) 0.7 x10^3/uL (0.0-1.1) 0.7 x10^3/uL (0.0-1.1) Eosinophils # (Auto) 0.2 x10^3/uL (0.0-0.7) 0.2 x10^3/uL (0.0-0.7) Basophils # (Auto) 0.0 x10^3/uL (0.0-0.2) 0.0 x10^3/uL (0.0-0.2) Iron Level 19 ug/dL (50-170) Total Iron Binding Capacity 198 ug/dL (250-450) Iron Saturation 10 % (15-34) Vitamin B12 Level 449 pg/mL (247-911) Erythrocyte Sedimentation Rate 93 (0-25) Sodium Level 139 mmol/L (136-145) Potassium Level 3.6 mmol/L (3.5-5.1) Chloride Level 103 mmol/L (98-107) Carbon Dioxide Level 29 mmol/L (21-32) Anion Gap 7 (6-14) Blood Urea Nitrogen 3 mg/dL (7-20) Creatinine 0.7 mg/dL (0.6-1.0) Estimated GFR (Cockcroft-Gault) 85.4 BUN/Creatinine Ratio 4 (6-20) Glucose Level 108 mg/dL (70-99) Calcium Level 9.2 mg/dL (8.5-10.1) Total Bilirubin 0.3 mg/dL (0.2-1.0) Aspartate Amino Transf (AST/SGOT) 24 U/L (15-37) Alanine Aminotransferase (ALT/SGPT) 29 U/L (14-59) Alkaline Phosphatase 69 U/L (46-116) Total Protein 6.8 g/dL (6.4-8.2) Albumin 2.8 g/dL (3.4-5.0) Albumin/Globulin Ratio 0.7 (1.0-1.7) Laboratory Tests Test 01/01/19 04:00 White Blood Count 6.2 x10^3/uL (4.0-11.0) Red Blood Count 3.67 x10^6/uL (3.50-5.40) Hemoglobin 10.5 g/dL (12.0-15.5) Hematocrit 31.6 % (36.0-47.0) Mean Corpuscular Volume 86 fL (79-100) Mean Corpuscular Hemoglobin 29 pg (25-35) Mean Corpuscular Hemoglobin Concent 33 g/dL (31-37) Red Cell Distribution Width 14.6 % (11.5-14.5) Platelet Count 310 x10^3/uL (140-400) Neutrophils (%) (Auto) 69 % (31-73) Lymphocytes (%) (Auto) 17 % (24-48) Monocytes (%) (Auto) 10 % (0-9) Eosinophils (%) (Auto) 3 % (0-3) Basophils (%) (Auto) 1 % (0-3) Neutrophils # (Auto) 4.3 x10^3uL (1.8-7.7) Lymphocytes # (Auto) 1.1 x10^3/uL (1.0-4.8) Monocytes # (Auto) 0.7 x10^3/uL (0.0-1.1) Eosinophils # (Auto) 0.2 x10^3/uL (0.0-0.7) Basophils # (Auto) 0.0 x10^3/uL (0.0-0.2) Erythrocyte Sedimentation Rate 93 (0-25) Sodium Level 139 mmol/L (136-145) Potassium Level 3.6 mmol/L (3.5-5.1) Chloride Level 103 mmol/L (98-107) Carbon Dioxide Level 29 mmol/L (21-32) Anion Gap 7 (6-14) Blood Urea Nitrogen 3 mg/dL (7-20) Creatinine 0.7 mg/dL (0.6-1.0) Estimated GFR (Cockcroft-Gault) 85.4 BUN/Creatinine Ratio 4 (6-20) Glucose Level 108 mg/dL (70-99) Calcium Level 9.2 mg/dL (8.5-10.1) Total Bilirubin 0.3 mg/dL (0.2-1.0) Aspartate Amino Transf (AST/SGOT) 24 U/L (15-37) Alanine Aminotransferase (ALT/SGPT) 29 U/L (14-59) Alkaline Phosphatase 69 U/L (46-116) Total Protein 6.8 g/dL (6.4-8.2) Albumin 2.8 g/dL (3.4-5.0) Albumin/Globulin Ratio 0.7 (1.0-1.7) Problem List Problems Medical Problems: (1) Acute diverticulitis Status: Acute (2) Urinary tract infection Status: Acute Assessment/Plan abx management ETHAN ACHARYA MD 01/01/19 1209: SURGICAL PROGRESS NOTE Assessment/Plan Patient feels like she is doing better less pain having bowel movements are loose like to have more and her diet will look to advance in the morning he with Nickels assessment and plan NANETTE OWENS APRN January 01, 2019 09:50 ETHAN ACHARYA MD January 01, 2019 12:09
--- NOTE | 2019-01-01 10:39 | PDOC ---
PROGRESS NOTES History of Present Illness History of Present Illness VTE Prophylaxis Ordered VTE Prophylaxis Devices: Yes VTE Pharmacological Prophylaxi: Yes Assessment/Plan Assessment/Plan IMPRESSION: 1.ACUTE Sigmoid diverticulosis with extensive mural thickening and paracolic inflammation related to the proximal to mid sigmoid colon, compatible with acute diverticulitis. The possibility of underlying colonic neoplasm cannot be excluded. 2. Interval repair of the patient's large ventral hernia since 01/25/2018. 3. UTI 4. SEPSIS 5. morbid obesity 6. tobacco abuse 7. NORMOCYTIC ANEMIA 12/30 LLQ tenderness persists / pain awakens her at high at least x 2, pain is 6/10 today, no BM 5/ pain slow to improve PLAN 1. sips liquids 2. IV FLUID SUPPORT 3. IV ANTIBIOTICS, CIPRO, FLAGYL 4. GI CONSULT 5. DVT prophylaxis 6. gi prophylaxis 7. home meds 8. blood culture 42 min pt exam, chart review, > 50% of time spent with exam, chart review, pt care coordination Vitals Vitals Vital Signs Date Time Temp Pulse Resp B/P (MAP) Pulse Ox O2 Delivery O2 Flow Rate FiO2 01/01/19 08:14 95 Room Air 01/01/19 06:30 98.3 67 16 130/58 (82) 98.3 12/31/18 14:59 2.0 Physical Exam Physical Exam esr = 93 General: Alert, Oriented X3, Cooperative, No acute distress, mild distress Heart: Regular rate, Normal S1, Normal S2, No murmurs Lungs: Clear, Wheezing Abdomen: Soft, Other (TTP lower abdomen) Extremities: No clubbing, No cyanosis Skin: No rashes, No breakdown Labs LABS Laboratory Tests Test 01/01/19 04:00 White Blood Count 6.2 x10^3/uL (4.0-11.0) Red Blood Count 3.67 x10^6/uL (3.50-5.40) Hemoglobin 10.5 g/dL (12.0-15.5) Hematocrit 31.6 % (36.0-47.0) Mean Corpuscular Volume 86 fL (79-100) Mean Corpuscular Hemoglobin 29 pg (25-35) Mean Corpuscular Hemoglobin Concent 33 g/dL (31-37) Red Cell Distribution Width 14.6 % (11.5-14.5) Platelet Count 310 x10^3/uL (140-400) Neutrophils (%) (Auto) 69 % (31-73) Lymphocytes (%) (Auto) 17 % (24-48) Monocytes (%) (Auto) 10 % (0-9) Eosinophils (%) (Auto) 3 % (0-3) Basophils (%) (Auto) 1 % (0-3) Neutrophils # (Auto) 4.3 x10^3uL (1.8-7.7) Lymphocytes # (Auto) 1.1 x10^3/uL (1.0-4.8) Monocytes # (Auto) 0.7 x10^3/uL (0.0-1.1) Eosinophils # (Auto) 0.2 x10^3/uL (0.0-0.7) Basophils # (Auto) 0.0 x10^3/uL (0.0-0.2) Erythrocyte Sedimentation Rate 93 (0-25) Sodium Level 139 mmol/L (136-145) Potassium Level 3.6 mmol/L (3.5-5.1) Chloride Level 103 mmol/L (98-107) Carbon Dioxide Level 29 mmol/L (21-32) Anion Gap 7 (6-14) Blood Urea Nitrogen 3 mg/dL (7-20) Creatinine 0.7 mg/dL (0.6-1.0) Estimated GFR (Cockcroft-Gault) 85.4 BUN/Creatinine Ratio 4 (6-20) Glucose Level 108 mg/dL (70-99) Calcium Level 9.2 mg/dL (8.5-10.1) Total Bilirubin 0.3 mg/dL (0.2-1.0) Aspartate Amino Transf (AST/SGOT) 24 U/L (15-37) Alanine Aminotransferase (ALT/SGPT) 29 U/L (14-59) Alkaline Phosphatase 69 U/L (46-116) Total Protein 6.8 g/dL (6.4-8.2) Albumin 2.8 g/dL (3.4-5.0) Albumin/Globulin Ratio 0.7 (1.0-1.7) Assessment and Plan Assessmemt and Plan Problems Medical Problems: (1) Acute diverticulitis Status: Acute (2) Urinary tract infection Status: Acute Comment Review of Relevant I have reviewed the following items ron (where applicable) has been applied. Labs Laboratory Tests Test 12/31/18 04:20 01/01/19 04:00 White Blood Count 6.0 x10^3/uL (4.0-11.0) 6.2 x10^3/uL (4.0-11.0) Red Blood Count 3.43 x10^6/uL (3.50-5.40) 3.67 x10^6/uL (3.50-5.40) Hemoglobin 10.1 g/dL (12.0-15.5) 10.5 g/dL (12.0-15.5) Hematocrit 29.5 % (36.0-47.0) 31.6 % (36.0-47.0) Mean Corpuscular Volume 86 fL (79-100) 86 fL (79-100) Mean Corpuscular Hemoglobin 29 pg (25-35) 29 pg (25-35) Mean Corpuscular Hemoglobin Concent 34 g/dL (31-37) 33 g/dL (31-37) Red Cell Distribution Width 14.8 % (11.5-14.5) 14.6 % (11.5-14.5) Platelet Count 259 x10^3/uL (140-400) 310 x10^3/uL (140-400) Neutrophils (%) (Auto) 69 % (31-73) 69 % (31-73) Lymphocytes (%) (Auto) 15 % (24-48) 17 % (24-48) Monocytes (%) (Auto) 12 % (0-9) 10 % (0-9) Eosinophils (%) (Auto) 4 % (0-3) 3 % (0-3) Basophils (%) (Auto) 1 % (0-3) 1 % (0-3) Neutrophils # (Auto) 4.1 x10^3uL (1.8-7.7) 4.3 x10^3uL (1.8-7.7) Lymphocytes # (Auto) 0.9 x10^3/uL (1.0-4.8) 1.1 x10^3/uL (1.0-4.8) Monocytes # (Auto) 0.7 x10^3/uL (0.0-1.1) 0.7 x10^3/uL (0.0-1.1) Eosinophils # (Auto) 0.2 x10^3/uL (0.0-0.7) 0.2 x10^3/uL (0.0-0.7) Basophils # (Auto) 0.0 x10^3/uL (0.0-0.2) 0.0 x10^3/uL (0.0-0.2) Iron Level 19 ug/dL (50-170) Total Iron Binding Capacity 198 ug/dL (250-450) Iron Saturation 10 % (15-34) Vitamin B12 Level 449 pg/mL (247-911) Erythrocyte Sedimentation Rate 93 (0-25) Sodium Level 139 mmol/L (136-145) Potassium Level 3.6 mmol/L (3.5-5.1) Chloride Level 103 mmol/L (98-107) Carbon Dioxide Level 29 mmol/L (21-32) Anion Gap 7 (6-14) Blood Urea Nitrogen 3 mg/dL (7-20) Creatinine 0.7 mg/dL (0.6-1.0) Estimated GFR (Cockcroft-Gault) 85.4 BUN/Creatinine Ratio 4 (6-20) Glucose Level 108 mg/dL (70-99) Calcium Level 9.2 mg/dL (8.5-10.1) Total Bilirubin 0.3 mg/dL (0.2-1.0) Aspartate Amino Transf (AST/SGOT) 24 U/L (15-37) Alanine Aminotransferase (ALT/SGPT) 29 U/L (14-59) Alkaline Phosphatase 69 U/L (46-116) Total Protein 6.8 g/dL (6.4-8.2) Albumin 2.8 g/dL (3.4-5.0) Albumin/Globulin Ratio 0.7 (1.0-1.7) Laboratory Tests Test 01/01/19 04:00 White Blood Count 6.2 x10^3/uL (4.0-11.0) Red Blood Count 3.67 x10^6/uL (3.50-5.40) Hemoglobin 10.5 g/dL (12.0-15.5) Hematocrit 31.6 % (36.0-47.0) Mean Corpuscular Volume 86 fL (79-100) Mean Corpuscular Hemoglobin 29 pg (25-35) Mean Corpuscular Hemoglobin Concent 33 g/dL (31-37) Red Cell Distribution Width 14.6 % (11.5-14.5) Platelet Count 310 x10^3/uL (140-400) Neutrophils (%) (Auto) 69 % (31-73) Lymphocytes (%) (Auto) 17 % (24-48) Monocytes (%) (Auto) 10 % (0-9) Eosinophils (%) (Auto) 3 % (0-3) Basophils (%) (Auto) 1 % (0-3) Neutrophils # (Auto) 4.3 x10^3uL (1.8-7.7) Lymphocytes # (Auto) 1.1 x10^3/uL (1.0-4.8) Monocytes # (Auto) 0.7 x10^3/uL (0.0-1.1) Eosinophils # (Auto) 0.2 x10^3/uL (0.0-0.7) Basophils # (Auto) 0.0 x10^3/uL (0.0-0.2) Erythrocyte Sedimentation Rate 93 (0-25) Sodium Level 139 mmol/L (136-145) Potassium Level 3.6 mmol/L (3.5-5.1) Chloride Level 103 mmol/L (98-107) Carbon Dioxide Level 29 mmol/L (21-32) Anion Gap 7 (6-14) Blood Urea Nitrogen 3 mg/dL (7-20) Creatinine 0.7 mg/dL (0.6-1.0) Estimated GFR (Cockcroft-Gault) 85.4 BUN/Creatinine Ratio 4 (6-20) Glucose Level 108 mg/dL (70-99) Calcium Level 9.2 mg/dL (8.5-10.1) Total Bilirubin 0.3 mg/dL (0.2-1.0) Aspartate Amino Transf (AST/SGOT) 24 U/L (15-37) Alanine Aminotransferase (ALT/SGPT) 29 U/L (14-59) Alkaline Phosphatase 69 U/L (46-116) Total Protein 6.8 g/dL (6.4-8.2) Albumin 2.8 g/dL (3.4-5.0) Albumin/Globulin Ratio 0.7 (1.0-1.7) Microbiology 12/28/18 Blood Culture - Preliminary, Resulted NO GROWTH AFTER 3 DAYS 12/28/18 Urine Culture - Final, Complete 12/28/18 Urine Culture Result 1 (AUDREY) - Final, Complete Medications Current Medications Fentanyl Citrate (Fentanyl 2ml Vial) 50 mcg PRN Q15MIN PRN IV PAIN GREATER THAN 3/10 Last administered on 12/28/18 16:22; Start 12/28/18 at 14:30; Stop 12/29/18 at 14:29; Status DC Sodium Chloride 1,000 ml @ 1,000 mls/hr Q1H IV Last administered on 12/28/18 14:37; Start 12/28/18 at 14:24; Stop 12/28/18 at 15:23; Status DC Ondansetron HCl (Zofran) 4 mg 1X ONCE IV Last administered on 12/28/18 14:39; Start 12/28/18 at 14:30; Stop 12/28/18 at 14:31; Status DC Iohexol (Omnipaque 300 Mg/ml) 75 ml 1X ONCE IV Last administered on 12/28/18 15:29; Start 12/28/18 at 14:45; Stop 12/28/18 at 14:46; Status DC Info (CONTRAST GIVEN -- Rx MONITORING) 1 each PRN DAILY PRN MC SEE COMMENTS; Start 12/28/18 at 14:45; Stop 12/30/18 at 14:44; Status DC Ciprofloxacin/ Dextrose 200 ml @ 200 mls/hr 1X ONCE IV Last administered on 12/28/18 16:24; Start 12/28/18 at 16:15; Stop 12/28/18 at 17:14; Status DC Metronidazole 100 ml @ 100 mls/hr 1X ONCE IV Last administered on 12/28/18 16:27; Start 12/28/18 at 16:15; Stop 12/28/18 at 17:14; Status DC Ondansetron HCl (Zofran) 4 mg PRN Q8HRS PRN IV NAUSEA/VOMITING; Start 12/28/18 at 16:30; Stop 12/28/18 at 19:34; Status DC Morphine Sulfate (Morphine Sulfate) 4 mg PRN Q2HR PRN IV PAIN Last administered on 12/29/18at 12:04; Start 12/28/18 at 16:30; Stop 12/29/18 at 16:29; Status DC Sodium Chloride 1,000 ml @ 125 mls/hr Q8H IV Last administered on 12/29/18 08:17; Start 12/28/18 at 16:30; Stop 12/29/18 at 16:29; Status DC Acetaminophen (Tylenol) 650 mg PRN Q4HRS PRN PO FEVER; Start 12/28/18 at 16:30; Stop 12/28/18 at 19:35; Status DC Ciprofloxacin/ Dextrose 200 ml @ 200 mls/hr Q12HR IV Last administered on 01/01/19 08:57; Start 12/29/18 at 09:00 Metronidazole 100 ml @ 100 mls/hr Q12HR IV Last administered on 01/01/19 08:57; Start 12/29/18 at 09:00 Sodium Chloride (Normal Saline Flush 3ml) 3 ml QSHIFT PRN IV AFTER MEDS AND BLOOD DRAWS; Start 12/28/18 at 19:30 Ondansetron HCl (Zofran) 4 mg PRN Q4HRS PRN IV NAUSEA/VOMITING; Start 12/28/18 at 19:30 Zolpidem Tartrate (Ambien) 5 mg PRN QHS PRN PO INSOMNIA Last administered on 12/31/18 21:05; Start 12/28/18 at 19:30 Acetaminophen (Tylenol) 650 mg PRN Q4HRS PRN PO TEMP OVER 100.4F OR MILD PAIN Last administered on 01/01/19 01:00; Start 12/28/18 at 19:30 Clonidine HCl (Catapres) 0.1 mg PRN Q6HRS PRN PO SBP>160 OR DBP>90; Start 12/28/18 at 19:30 Docusate Sodium (Colace) 100 mg PRN BID PRN PO CONSTIPATION; Start 12/28/18 at 19:30 Albuterol/ Ipratropium (Duoneb) 3 ml Q4HRS NEB Last administered on 01/01/19 08:12; Start 12/28/18 at 20:00 Guaifenesin (Robitussin) 200 mg PRN Q4HRS PRN PO COUGH; Start 12/28/18 at 19:30 Lorazepam (Ativan) 0.5 mg PRN Q4HRS PRN PO ANXIETY / AGITATION Last administered on 12/31/18 21:04; Start 12/28/18 at 19:30 Enoxaparin Sodium (Lovenox 40mg Syringe) 40 mg QHS SQ Last administered on 12/31/18 21:05; Start 12/28/18 at 21:00 Polyethylene Glycol (miraLAX PACKET) 17 gm BID PO Last administered on 01/01/19 08:55; Start 12/29/18 at 21:00 Lactobacillus Rhamnosus (Culturelle) 1 cap BID PO Last administered on 01/01/19 08:55; Start 12/29/18 at 21:00 Non-Formulary Medication (Dextroamphetamine/ Amphetamine (Adderall 30 Mg Tablet)) 30 mg DAILY16 PO ; Start 12/30/18 at 16:00; Stop 12/30/18 at 17:23; Status DC Non-Formulary Medication (Dextroamphetamine/ Amphetamine (Adderall 30 Mg Tablet)) 60 mg DAILY08 PO ; Start 12/31/18 at 08:00; Status UNV Pseudoephedrine HCl (Sudafed 12-Hour) 120 mg BID PO Last administered on 01/01/19 08:55; Start 12/30/18 at 21:00 Multi-Ingred Cream/Lotion/Oil/ Oint (Artificial Tears Eye Ointment) 1 paras PRN Q1HR PRN OU DRY EYE; Start 12/30/18 at 12:00; Stop 12/30/18 at 14:26; Status DC Cetirizine HCl (ZyrTEC) 10 mg DAILY PO Last administered on 01/01/19 08:55; Start 12/30/18 at 13:00 Artificial Tears (Artificial Tears) 1 drop PRN Q15MIN PRN OU DRY EYE Last administered on 12/30/18at 15:45; Start 12/30/18 at 14:30 Benzocaine (Ora-Jel) 1 paras PRN QID PRN TP ORAL PAIN Last administered on 12/31/18 23:09; Start 12/31/18 at 22:15 Active Scripts Active Reported Zofran (Ondansetron Hcl) 4 Mg Tablet 1 Tab PO Q6HRS Mihaela-D 24 Hour Tablet (Fexofenadine/Pseudoephedrine) 1 Each Tab.er.24h 1 Tab PO DAILY Symbicort 160-4.5 Mcg Inhaler (Budesonide/Formoterol Fumarate) 10.2 Gm Hfa.aer.ad 2 Puff IH BID Adderall 30 Mg Tablet (Dextroamphetamine/Amphetamine) 30 Mg Tablet 30 Mg PO DAILY16 Adderall 30 Mg Tablet (Dextroamphetamine/Amphetamine) 30 Mg Tablet 60 Mg PO DAILY08 Vitals/I & O Vital Sign - Last 24 Hours 12/31/18 12/31/18 12/31/18 12/31/18 11:02 11:27 14:59 15:23 Temp 98.4 97.8 98.4 97.8 Pulse 74 79 Resp 14 18 B/P (MAP) 119/58 (78) 131/6 (47) Pulse Ox 91 97 93 O2 Delivery Room Air Room Air Nasal Cannula Room Air O2 Flow Rate 2.0 2.0 12/31/18 12/31/18 12/31/18 12/31/18 19:00 20:00 20:14 22:35 Temp 98.1 98.5 98.1 98.5 Pulse 81 75 Resp 18 18 B/P (MAP) 125/46 (72) 131/75 (93) Pulse Ox 94 96 94 O2 Delivery Room Air Room Air Room Air Room Air 01/01/19 01/01/19 01/01/19 01/01/19 02:39 03:55 06:30 08:14 Temp 97.6 98.3 97.6 98.3 Pulse 70 67 Resp 16 16 B/P (MAP) 138/54 (82) 130/58 (82) Pulse Ox 94 95 95 O2 Delivery Room Air Room Air Room Air Room Air Intake and Output 12/31/18 12/31/18 01/01/19 15:00 23:00 07:00 Intake Total 780 ml 240 ml Output Total 1 ml Balance 779 ml 240 ml ETHAN CARR MD January 01, 2019 10:39
[2019-01-01 11:05] VITALS: BP 132/66
--- NOTE | 2019-01-01 13:27 | PDOC ---
Subjective: Subjective: "Nerve pain" in vagina - "electric" pain. Loose stools, tolerating PO - possibly will advance in a.m. Problems with IV. Objective: Vital Signs: Vital Signs Date Time Temp Pulse Resp B/P (MAP) Pulse Ox O2 Delivery O2 Flow Rate FiO2 01/01/19 11:35 Room Air 01/01/19 11:05 98.2 61 16 132/66 (88) 96 2.0 98.2 Labs: Laboratory Tests Test 01/01/19 04:00 White Blood Count 6.2 x10^3/uL Red Blood Count 3.67 x10^6/uL Hemoglobin 10.5 g/dL Hematocrit 31.6 % Mean Corpuscular Volume 86 fL Mean Corpuscular Hemoglobin 29 pg Mean Corpuscular Hemoglobin Concent 33 g/dL Red Cell Distribution Width 14.6 % Platelet Count 310 x10^3/uL Neutrophils (%) (Auto) 69 % Lymphocytes (%) (Auto) 17 % Monocytes (%) (Auto) 10 % Eosinophils (%) (Auto) 3 % Basophils (%) (Auto) 1 % Neutrophils # (Auto) 4.3 x10^3uL Lymphocytes # (Auto) 1.1 x10^3/uL Monocytes # (Auto) 0.7 x10^3/uL Eosinophils # (Auto) 0.2 x10^3/uL Basophils # (Auto) 0.0 x10^3/uL Erythrocyte Sedimentation Rate 93 Sodium Level 139 mmol/L Potassium Level 3.6 mmol/L Chloride Level 103 mmol/L Carbon Dioxide Level 29 mmol/L Anion Gap 7 Blood Urea Nitrogen 3 mg/dL Creatinine 0.7 mg/dL Estimated GFR (Cockcroft-Gault) 85.4 BUN/Creatinine Ratio 4 Glucose Level 108 mg/dL Calcium Level 9.2 mg/dL Total Bilirubin 0.3 mg/dL Aspartate Amino Transf (AST/SGOT) 24 U/L Alanine Aminotransferase (ALT/SGPT) 29 U/L Alkaline Phosphatase 69 U/L Total Protein 6.8 g/dL Albumin 2.8 g/dL Albumin/Globulin Ratio 0.7 PE: GEN: NAD LUNGS: CTAB HEART: RRR ABD: significant tenderness quite low/suprapubic NEURO/PSYCH: A & O 3 A/P: Diverticulitis - 1st episode, last colonoscopy 2013 Suprapubic/vaginal pain Anemia -- Consider changing to PO atbx w/ her complaints re: IV. Possibly advance diet in a.m. per surgery. TAMANNA WATSON January 01, 2019 13:27
--- NOTE | 2019-01-01 14:34 | NUR ---
SW following Pt. Pt seen by PT/OT and does not have skilled needs. Will continue to eval dc needs.
[2019-01-01 15:00] VITALS: BP 150/83
[2019-01-01] MEDS: BENZOCAINE 10% ORAL GEL 7GM TUBE. TP PRN (18:02)
[2019-01-01] MEDS ORDERED: GABAPENTIN 100 MG CAPSULE. PO ONE (18:30)
[2019-01-01 19:00] VITALS: BP 128/57
[2019-01-01] MEDS: ENOXAPARIN 40 MG/0.4 ML SYRINGE. SQ SCH (20:58)
[2019-01-01 23:00] VITALS: BP 132/58
[2019-01-02 03:00] VITALS: BP 120/60
[2019-01-02] MEDS: IPRATRPIUM/ALBUTEROL 0.5/2.5MG 3 ML NEBU. NEB SCH ×6 (04:00→23:31)
[2019-01-02 07:00] VITALS: BP 124/54
[2019-01-02] MEDS: CIPROFLOXACIN 400MG PREMIX 200 ML IV SCH ×2 (08:34→22:31)
[2019-01-02] MEDS: CETIRIZINE HCL 10 MG TABLET. PO SCH (08:35)
[2019-01-02] MEDS: GABAPENTIN 100 MG CAPSULE. PO SCH ×2 (08:35→21:07)
[2019-01-02] MEDS: LACTOBACILLUS RHAMNOSUS GG 1 CAPSULE. PO SCH ×2 (08:35→21:07)
[2019-01-02] MEDS: PSEUDOEPHEDRINE ER 120 MG TABLET.ER. PO SCH ×2 (08:35→21:07)
[2019-01-02] MEDS: POLYETHYLENE GLYCOL 3350 17 GM PACKET. PO SCH (08:36)
--- NOTE | 2019-01-02 08:55 | PDOC ---
SURGICAL PROGRESS NOTE Subjective Patient doing well, minimal pain tolerating diet Vital Signs Vital Signs Date Time Temp Pulse Resp B/P (MAP) Pulse Ox O2 Delivery O2 Flow Rate FiO2 01/02/19 07:00 98.7 74 18 124/54 (77) 92 Room Air 98.7 01/01/19 15:00 2.0 I&O Intake and Output 01/02/19 07:00 Intake Total 1440 ml Balance 1440 ml Intake Oral 1140 ml IV Total 300 ml # Voids 3 General: Alert, Oriented X3, Cooperative, No acute distress Abdomen: Normal bowel sounds, Soft, Other (mildly tender over pubic symphis) Labs Laboratory Tests Test 01/01/19 04:00 White Blood Count 6.2 x10^3/uL (4.0-11.0) Red Blood Count 3.67 x10^6/uL (3.50-5.40) Hemoglobin 10.5 g/dL (12.0-15.5) Hematocrit 31.6 % (36.0-47.0) Mean Corpuscular Volume 86 fL (79-100) Mean Corpuscular Hemoglobin 29 pg (25-35) Mean Corpuscular Hemoglobin Concent 33 g/dL (31-37) Red Cell Distribution Width 14.6 % (11.5-14.5) Platelet Count 310 x10^3/uL (140-400) Neutrophils (%) (Auto) 69 % (31-73) Lymphocytes (%) (Auto) 17 % (24-48) Monocytes (%) (Auto) 10 % (0-9) Eosinophils (%) (Auto) 3 % (0-3) Basophils (%) (Auto) 1 % (0-3) Neutrophils # (Auto) 4.3 x10^3uL (1.8-7.7) Lymphocytes # (Auto) 1.1 x10^3/uL (1.0-4.8) Monocytes # (Auto) 0.7 x10^3/uL (0.0-1.1) Eosinophils # (Auto) 0.2 x10^3/uL (0.0-0.7) Basophils # (Auto) 0.0 x10^3/uL (0.0-0.2) Erythrocyte Sedimentation Rate 93 (0-25) Sodium Level 139 mmol/L (136-145) Potassium Level 3.6 mmol/L (3.5-5.1) Chloride Level 103 mmol/L (98-107) Carbon Dioxide Level 29 mmol/L (21-32) Anion Gap 7 (6-14) Blood Urea Nitrogen 3 mg/dL (7-20) Creatinine 0.7 mg/dL (0.6-1.0) Estimated GFR (Cockcroft-Gault) 85.4 BUN/Creatinine Ratio 4 (6-20) Glucose Level 108 mg/dL (70-99) Calcium Level 9.2 mg/dL (8.5-10.1) Total Bilirubin 0.3 mg/dL (0.2-1.0) Aspartate Amino Transf (AST/SGOT) 24 U/L (15-37) Alanine Aminotransferase (ALT/SGPT) 29 U/L (14-59) Alkaline Phosphatase 69 U/L (46-116) Total Protein 6.8 g/dL (6.4-8.2) Albumin 2.8 g/dL (3.4-5.0) Albumin/Globulin Ratio 0.7 (1.0-1.7) Problem List Problems Medical Problems: (1) Acute diverticulitis Status: Acute (2) Urinary tract infection Status: Acute Assessment/Plan Diverticulitis improving No surgical plans Defer to GI for further treatment recommendations ETHAN ACHARYA MD January 02, 2019 08:55
--- NOTE | 2019-01-02 10:16 | PDOC ---
PROGRESS NOTES History of Present Illness History of Present Illness VTE Prophylaxis Ordered VTE Prophylaxis Devices: Yes VTE Pharmacological Prophylaxi: Yes Assessment/Plan Assessment/Plan IMPRESSION: 1.ACUTE Sigmoid diverticulosis with extensive mural thickening and paracolic inflammation related to the proximal to mid sigmoid colon, compatible with acute diverticulitis. The possibility of underlying colonic neoplasm cannot be excluded. 2. Interval repair of the patient's large ventral hernia since 01/25/2018. 3. UTI 4. SEPSIS 5. morbid obesity 6. tobacco abuse 7. NORMOCYTIC ANEMIA 5/ LLQ tenderness persists 5/6 pain awakens her at high at least x 2, pain is 6/10 today, no BM 5/7 pain slow to improve PLAN 1. sips liquids 2. IV FLUID SUPPORT 3. IV ANTIBIOTICS, CIPRO, FLAGYL 4. GI CONSULT 5. DVT prophylaxis 6. gi prophylaxis 7. home meds 8. blood culture 42 min pt exam, chart review, > 50% of time spent with exam, chart review, pt care coordination Vitals Vitals Vital Signs Date Time Temp Pulse Resp B/P (MAP) Pulse Ox O2 Delivery O2 Flow Rate FiO2 01/02/19 07:00 98.7 74 18 124/54 (77) 92 Room Air 98.7 01/01/19 15:00 2.0 Physical Exam Physical Exam esr = 93 General: Alert, Oriented X3, Cooperative, No acute distress Heart: Regular rate, Normal S1, Normal S2, No murmurs Lungs: Clear, Wheezing Abdomen: Normal bowel sounds, Soft, Other (mildly tender over pubic symphis) Extremities: No clubbing, No cyanosis Skin: No rashes, No breakdown Assessment and Plan Assessmemt and Plan Problems Medical Problems: (1) Acute diverticulitis Status: Acute (2) Urinary tract infection Status: Acute Comment Review of Relevant I have reviewed the following items ron (where applicable) has been applied. Labs Laboratory Tests Test 01/01/19 04:00 White Blood Count 6.2 x10^3/uL (4.0-11.0) Red Blood Count 3.67 x10^6/uL (3.50-5.40) Hemoglobin 10.5 g/dL (12.0-15.5) Hematocrit 31.6 % (36.0-47.0) Mean Corpuscular Volume 86 fL (79-100) Mean Corpuscular Hemoglobin 29 pg (25-35) Mean Corpuscular Hemoglobin Concent 33 g/dL (31-37) Red Cell Distribution Width 14.6 % (11.5-14.5) Platelet Count 310 x10^3/uL (140-400) Neutrophils (%) (Auto) 69 % (31-73) Lymphocytes (%) (Auto) 17 % (24-48) Monocytes (%) (Auto) 10 % (0-9) Eosinophils (%) (Auto) 3 % (0-3) Basophils (%) (Auto) 1 % (0-3) Neutrophils # (Auto) 4.3 x10^3uL (1.8-7.7) Lymphocytes # (Auto) 1.1 x10^3/uL (1.0-4.8) Monocytes # (Auto) 0.7 x10^3/uL (0.0-1.1) Eosinophils # (Auto) 0.2 x10^3/uL (0.0-0.7) Basophils # (Auto) 0.0 x10^3/uL (0.0-0.2) Erythrocyte Sedimentation Rate 93 (0-25) Sodium Level 139 mmol/L (136-145) Potassium Level 3.6 mmol/L (3.5-5.1) Chloride Level 103 mmol/L (98-107) Carbon Dioxide Level 29 mmol/L (21-32) Anion Gap 7 (6-14) Blood Urea Nitrogen 3 mg/dL (7-20) Creatinine 0.7 mg/dL (0.6-1.0) Estimated GFR (Cockcroft-Gault) 85.4 BUN/Creatinine Ratio 4 (6-20) Glucose Level 108 mg/dL (70-99) Calcium Level 9.2 mg/dL (8.5-10.1) Total Bilirubin 0.3 mg/dL (0.2-1.0) Aspartate Amino Transf (AST/SGOT) 24 U/L (15-37) Alanine Aminotransferase (ALT/SGPT) 29 U/L (14-59) Alkaline Phosphatase 69 U/L (46-116) Total Protein 6.8 g/dL (6.4-8.2) Albumin 2.8 g/dL (3.4-5.0) Albumin/Globulin Ratio 0.7 (1.0-1.7) Microbiology 12/28/18 Blood Culture - Preliminary, Resulted NO GROWTH AFTER 4 DAYS 12/28/18 Urine Culture - Final, Complete 12/28/18 Urine Culture Result 1 (AUDREY) - Final, Complete Medications Current Medications Fentanyl Citrate (Fentanyl 2ml Vial) 50 mcg PRN Q15MIN PRN IV PAIN GREATER THAN 3/10 Last administered on 12/28/18 16:22; Start 12/28/18 at 14:30; Stop 12/29/18 at 14:29; Status DC Sodium Chloride 1,000 ml @ 1,000 mls/hr Q1H IV Last administered on 12/28/18at 14:37; Start 12/28/18 at 14:24; Stop 12/28/18 at 15:23; Status DC Ondansetron HCl (Zofran) 4 mg 1X ONCE IV Last administered on 12/28/18at 14:39; Start 12/28/18 at 14:30; Stop 12/28/18 at 14:31; Status DC Iohexol (Omnipaque 300 Mg/ml) 75 ml 1X ONCE IV Last administered on 12/28/18at 15:29; Start 12/28/18 at 14:45; Stop 12/28/18 at 14:46; Status DC Info (CONTRAST GIVEN -- Rx MONITORING) 1 each PRN DAILY PRN MC SEE COMMENTS; Start 12/28/18 at 14:45; Stop 12/30/18 at 14:44; Status DC Ciprofloxacin/ Dextrose 200 ml @ 200 mls/hr 1X ONCE IV Last administered on 12/28/18at 16:24; Start 12/28/18 at 16:15; Stop 12/28/18 at 17:14; Status DC Metronidazole 100 ml @ 100 mls/hr 1X ONCE IV Last administered on 12/28/18at 1 6:27; Start 12/28/18 at 16:15; Stop 12/28/18 at 17:14; Status DC Ondansetron HCl (Zofran) 4 mg PRN Q8HRS PRN IV NAUSEA/VOMITING; Start 12/28/18 at 16:30; Stop 12/28/18 at 19:34; Status DC Morphine Sulfate (Morphine Sulfate) 4 mg PRN Q2HR PRN IV PAIN Last administered on 12/29/18at 12:04; Start 12/28/18 at 16:30; Stop 12/29/18 at 16:29; Status DC Sodium Chloride 1,000 ml @ 125 mls/hr Q8H IV Last administered on 12/29/18 08:17; Start 12/28/18 at 16:30; Stop 12/29/18 at 16:29; Status DC Acetaminophen (Tylenol) 650 mg PRN Q4HRS PRN PO FEVER; Start 12/28/18 at 16:30; Stop 12/28/18 at 19:35; Status DC Ciprofloxacin/ Dextrose 200 ml @ 200 mls/hr Q12HR IV Last administered on 01/02/19 08:34; Start 12/29/18 at 09:00 Metronidazole 100 ml @ 100 mls/hr Q12HR IV Last administered on 01/02/19 08:33; Start 12/29/18 at 09:00 Sodium Chloride (Normal Saline Flush 3ml) 3 ml QSHIFT PRN IV AFTER MEDS AND BLOOD DRAWS; Start 12/28/18 at 19:30 Ondansetron HCl (Zofran) 4 mg PRN Q4HRS PRN IV NAUSEA/VOMITING; Start 12/28/18 at 19:30 Zolpidem Tartrate (Ambien) 5 mg PRN QHS PRN PO INSOMNIA Last administered on 12/31/18 21:05; Start 12/28/18 at 19:30 Acetaminophen (Tylenol) 650 mg PRN Q4HRS PRN PO TEMP OVER 100.4F OR MILD PAIN Last administered on 01/01/19 18:02; Start 12/28/18 at 19:30 Clonidine HCl (Catapres) 0.1 mg PRN Q6HRS PRN PO SBP>160 OR DBP>90; Start 12/28/18 at 19:30 Docusate Sodium (Colace) 100 mg PRN BID PRN PO CONSTIPATION; Start 12/28/18 at 19:30 Albuterol/ Ipratropium (Duoneb) 3 ml Q4HRS NEB Last administered on 01/01/19at 20:32; Start 12/28/18 at 20:00 Guaifenesin (Robitussin) 200 mg PRN Q4HRS PRN PO COUGH; Start 12/28/18 at 19:30 Lorazepam (Ativan) 0.5 mg PRN Q4HRS PRN PO ANXIETY / AGITATION Last administered on 12/31/18 21:04; Start 12/28/18 at 19:30 Enoxaparin Sodium (Lovenox 40mg Syringe) 40 mg QHS SQ Last administered on 01/01/19 20:58; Start 12/28/18 at 21:00 Polyethylene Glycol (miraLAX PACKET) 17 gm BID PO Last administered on 01/02/19 08:36; Start 12/29/18 at 21:00 Lactobacillus Rhamnosus (Culturelle) 1 cap BID PO Last administered on 01/02/19 08:35; Start 12/29/18 at 21:00 Non-Formulary Medication (Dextroamphetamine/ Amphetamine (Adderall 30 Mg Tablet)) 30 mg DAILY16 PO ; Start 12/30/18 at 16:00; Stop 12/30/18 at 17:23; Status DC Non-Formulary Medication (Dextroamphetamine/ Amphetamine (Adderall 30 Mg Tablet)) 60 mg DAILY08 PO ; Start 12/31/18 at 08:00; Status UNV Pseudoephedrine HCl (Sudafed 12-Hour) 120 mg BID PO Last administered on 01/02/19 08:35; Start 12/30/18 at 21:00 Multi-Ingred Cream/Lotion/Oil/ Oint (Artificial Tears Eye Ointment) 1 paras PRN Q1HR PRN OU DRY EYE; Start 12/30/18 at 12:00; Stop 12/30/18 at 14:26; Status DC Cetirizine HCl (ZyrTEC) 10 mg DAILY PO Last administered on 01/02/19 08:35; Start 12/30/18 at 13:00 Artificial Tears (Artificial Tears) 1 drop PRN Q15MIN PRN OU DRY EYE Last administered on 12/30/18 15:45; Start 12/30/18 at 14:30 Benzocaine (Ora-Jel) 1 paras PRN QID PRN TP ORAL PAIN Last administered on 01/01/19 18:02; Start 12/31/18 at 22:15 Gabapentin (Neurontin) 200 mg BID PO Last administered on 01/02/19 08:35; Start 01/02/19 at 09:00 Gabapentin (Neurontin) 200 mg 1X ONCE PO Last administered on 5/7/19at 18:48; Start 01/01/19 at 18:30; Stop 01/01/19 at 18:31; Status DC Active Scripts Active Reported Zofran (Ondansetron Hcl) 4 Mg Tablet 1 Tab PO Q6HRS Mihaela-D 24 Hour Tablet (Fexofenadine/Pseudoephedrine) 1 Each Tab.er.24h 1 Tab PO DAILY Symbicort 160-4.5 Mcg Inhaler (Budesonide/Formoterol Fumarate) 10.2 Gm Hfa.aer.ad 2 Puff IH BID Adderall 30 Mg Tablet (Dextroamphetamine/Amphetamine) 30 Mg Tablet 30 Mg PO DAILY16 Adderall 30 Mg Tablet (Dextroamphetamine/Amphetamine) 30 Mg Tablet 60 Mg PO DAILY08 Vitals/I & O Vital Sign - Last 24 Hours 01/01/19 01/01/19 01/01/19 01/01/19 11:05 11:35 15:00 19:00 Temp 98.2 97.6 98.5 98.2 97.6 98.5 Pulse 61 66 63 Resp 16 14 16 B/P (MAP) 132/66 (88) 150/83 (105) 128/57 (80) Pulse Ox 96 93 92 O2 Delivery Nasal Cannula Room Air Room Air Room Air O2 Flow Rate 2.0 2.0 01/01/19 01/01/19 01/02/19 01/02/19 20:38 23:00 03:00 07:00 Temp 97.9 97.9 98.7 97.9 97.9 98.7 Pulse 62 65 74 Resp 16 16 18 B/P (MAP) 132/58 (82) 120/60 (80) 124/54 (77) Pulse Ox 92 94 92 O2 Delivery Room Air Room Air Room Air Room Air Intake and Output 01/01/19 01/01/19 01/02/19 15:00 23:00 07:00 Intake Total 1100 ml 340 ml Balance 1100 ml 340 ml ETHAN CARR MD January 02, 2019 10:16
[2019-01-02 11:00] VITALS: BP 140/65
--- NOTE | 2019-01-02 13:59 | PDOC ---
Subjective: Subjective: Better. Says eating more. Had 4 loose stools. Objective: Objective: Per RN - possible DC on Monday. Pt doesn't want to stop Miralax because she thinks it's fiber and she needs it. Vital Signs: Vital Signs Date Time Temp Pulse Resp B/P (MAP) Pulse Ox O2 Delivery O2 Flow Rate FiO2 01/02/19 11:26 94 Room Air 01/02/19 11:00 98.5 63 18 140/65 (90) 98.5 01/01/19 15:00 2.0 Labs: BLOOD CULTURE Preliminary NO GROWTH AFTER 4 DAYS PE: GEN: NAD - out of bed, walking around room, looks better LUNGS: room air NEURO/PSYCH: A & O 3 A/P: Diverticulitis Suprapubic/vaginal pain -- Improving. ?PO atbx Try GI soft. Discussed backing off on Miralax considering loose stools and how she can adjust dosing as needed. Outpt colonoscopy. TAMANNA WATSON January 02, 2019 13:58
[2019-01-02] MEDS ORDERED: POLYETHYLENE GLYCOL 3350 17 GM PACKET. PO PRN (14:00)
[2019-01-02] MEDS: ACETAMINOPHEN 325 MG TABLET. PO PRN (14:16)
[2019-01-02 15:00] VITALS: BP 129/52
--- NOTE | 2019-01-02 16:16 | NUR ---
Nurse note: Pt was doing great this am. Meals switched to GI soft. After lunch, pt has had 4 loose and painful stools, increase in nausea, rectal pain. Will discuss w/ provider for orders. Addendum: 01/03/19 at 0754 by ARASELI IBANEZ RN RN Late entry: Per [place], pt will not d/c 01/02/19. Will reassess and continue to monitor.
[2019-01-02] MEDS: PHENYLEPH/MINERAL OIL/PETROLAT RECTAL OINTMENT 28GM TUBE. RC PRN (16:46)
[2019-01-02 19:28] VITALS: BP 129/72
[2019-01-02] MEDS: ENOXAPARIN 40 MG/0.4 ML SYRINGE. SQ SCH (21:08)
[2019-01-02 23:00] VITALS: BP 118/68
[2019-01-03 02:30] VITALS: BP 104/59
[2019-01-03] MEDS: IPRATRPIUM/ALBUTEROL 0.5/2.5MG 3 ML NEBU. NEB SCH ×4 (04:00→16:00)
[2019-01-03 07:00] VITALS: BP_SYST 113; BP_SYST 125; BP_DIAS 59; BP_DIAS 60
--- NOTE | 2019-01-03 07:07 | NUR ---
Nursing Note: Pt states she is doing much better. Wants to go home tomorrow because she does not have help until then.
[2019-01-03] MEDS ORDERED: POLYETHYLENE GLYCOL 3350 17 GM PACKET. PO SCH (09:00)
[2019-01-03] MEDS: CIPROFLOXACIN 400MG PREMIX 200 ML IV SCH (09:00)
--- NOTE | 2019-01-03 09:06 | PDOC ---
NANETTE OWENS TANK OPERATOR 01/03/19 0906: SURGICAL PROGRESS NOTE Subjective feels back to self minimal pain loose stools, tolerating diet Vital Signs Vital Signs Date Time Temp Pulse Resp B/P (MAP) Pulse Ox O2 Delivery O2 Flow Rate FiO2 01/03/19 07:13 100 Room Air 01/03/19 07:00 95.0 87 18 125/60 (81) 95.0 I&O Intake and Output 01/03/19 07:00 Intake Total 700 ml Output Total 1 ml Balance 699 ml Intake Oral 700 ml Output Urine Total 1 ml # Voids 4 # Bowel Movements 4 General: Alert, Oriented X3, Cooperative, No acute distress Abdomen: Soft, No tenderness Problem List Problems Medical Problems: (1) Acute diverticulitis Status: Acute (2) Urinary tract infection Status: Acute Assessment/Plan medical management scope 4-6 weeks,per GI no surgical plans, will sign off ETHAN ACHARYA MD 01/03/19 0935: SURGICAL PROGRESS NOTE Assessment/Plan Patient exam improving minimal pain agree with Brina assessment and plan NANETTE OWENS APRN January 03, 2019 09:06 ETHAN ACHARYA MD January 03, 2019 09:35
[2019-01-03] MEDS: BENZOCAINE 10% ORAL GEL 7GM TUBE. TP PRN (09:11)
[2019-01-03] MEDS: PHENYLEPH/MINERAL OIL/PETROLAT RECTAL OINTMENT 28GM TUBE. RC PRN (09:11)
[2019-01-03] MEDS: LACTOBACILLUS RHAMNOSUS GG 1 CAPSULE. PO SCH (09:11)
[2019-01-03] MEDS: CETIRIZINE HCL 10 MG TABLET. PO SCH (09:11)
[2019-01-03] MEDS: PSEUDOEPHEDRINE ER 120 MG TABLET.ER. PO SCH (09:11)
[2019-01-03] MEDS: GABAPENTIN 100 MG CAPSULE. PO SCH (09:11)
--- NOTE | 2019-01-03 09:31 | PDOC ---
PROGRESS NOTES History of Present Illness History of Present Illness VTE Prophylaxis Ordered VTE Prophylaxis Devices: Yes VTE Pharmacological Prophylaxi: Yes Assessment/Plan Assessment/Plan IMPRESSION: 1.ACUTE Sigmoid diverticulosis with extensive mural thickening and paracolic inflammation related to the proximal to mid sigmoid colon, compatible with acute diverticulitis. The possibility of underlying colonic neoplasm cannot be excluded. 2. Interval repair of the patient's large ventral hernia since 01/25/2018. 3. UTI 4. SEPSIS 5. morbid obesity 6. tobacco abuse 7. NORMOCYTIC ANEMIA 12/30 LLQ tenderness persists 12/31 pain awakens her at high at least x 2, pain is 6/10 today, no BM 01/01 pain slow to improve 01/02 c/o inc nausea 01/03 d/c home, better PLAN 1. sips liquids 2. IV FLUID SUPPORT 3. IV ANTIBIOTICS, CIPRO, FLAGYL 4. GI CONSULT 5. DVT prophylaxis 6. gi prophylaxis 7. home meds 8. blood culture 32 min pt exam d/c planning , chart review, > 50% of time spent with exam, chart review, pt care coordination Vitals Vitals Vital Signs Date Time Temp Pulse Resp B/P (MAP) Pulse Ox O2 Delivery O2 Flow Rate FiO2 01/03/19 07:13 100 Room Air 01/03/19 07:00 95.0 87 18 125/60 (81) 95.0 Physical Exam Physical Exam esr = 93 General: Alert, Oriented X3, Cooperative, No acute distress Heart: Regular rate, Normal S1, Normal S2, No murmurs Lungs: Clear, Wheezing Abdomen: Normal bowel sounds, Soft, No tenderness Extremities: No clubbing, No cyanosis Skin: No rashes, No breakdown Assessment and Plan Assessmemt and Plan Problems Medical Problems: (1) Acute diverticulitis Status: Acute (2) Urinary tract infection Status: Acute Comment Review of Relevant I have reviewed the following items ron (where applicable) has been applied. Labs Microbiology 12/28/18 Blood Culture - Final, Complete NO GROWTH AFTER 5 DAYS 12/31/18 Stool Culture - Final, Resulted 12/31/18 Stool Culture Result 1 (AUDREY) - Final, Resulted 12/31/18 Campylobacter Antigen Assay - Preliminary, Resulted 12/31/18 Campylobactor Result 1 - Preliminary, Resulted 12/31/18 Shiga Toxin Test, Resulted Pending 12/28/18 Urine Culture - Final, Complete 12/28/18 Urine Culture Result 1 (AUDREY) - Final, Complete Medications Current Medications Fentanyl Citrate (Fentanyl 2ml Vial) 50 mcg PRN Q15MIN PRN IV PAIN GREATER THAN 3/10 Last administered on 12/28/18 16:22; Start 12/28/18 at 14:30; Stop 12/29/18 at 14:29; Status DC Sodium Chloride 1,000 ml @ 1,000 mls/hr Q1H IV Last administered on 12/28/18at 14:37; Start 12/28/18 at 14:24; Stop 12/28/18 at 15:23; Status DC Ondansetron HCl (Zofran) 4 mg 1X ONCE IV Last administered on 12/28/18 14:39; Start 12/28/18 at 14:30; Stop 12/28/18 at 14:31; Status DC Iohexol (Omnipaque 300 Mg/ml) 75 ml 1X ONCE IV Last administered on 12/28/18 15:29; Start 12/28/18 at 14:45; Stop 12/28/18 at 14:46; Status DC Info (CONTRAST GIVEN -- Rx MONITORING) 1 each PRN DAILY PRN MC SEE COMMENTS; Start 12/28/18 at 14:45; Stop 12/30/18 at 14:44; Status DC Ciprofloxacin/ Dextrose 200 ml @ 200 mls/hr 1X ONCE IV Last administered on 12/28/18at 16:24; Start 12/28/18 at 16:15; Stop 12/28/18 at 17:14; Status DC Metronidazole 100 ml @ 100 mls/hr 1X ONCE IV Last administered on 12/28/18at 16:27; Start 12/28/18 at 16:15; Stop 12/28/18 at 17:14; Status DC Ondansetron HCl (Zofran) 4 mg PRN Q8HRS PRN IV NAUSEA/VOMITING; Start 12/28/18 at 16:30; Stop 12/28/18 at 19:34; Status DC Morphine Sulfate (Morphine Sulfate) 4 mg PRN Q2HR PRN IV PAIN Last administered on 12/29/18at 12:04; Start 12/28/18 at 16:30; Stop 12/29/18 at 16:29; Status DC Sodium Chloride 1,000 ml @ 125 mls/hr Q8H IV Last administered on 12/29/18 08:17; Start 12/28/18 at 16:30; Stop 12/29/18 at 16:29; Status DC Acetaminophen (Tylenol) 650 mg PRN Q4HRS PRN PO FEVER; Start 12/28/18 at 16:30; Stop 12/28/18 at 19:35; Status DC Ciprofloxacin/ Dextrose 200 ml @ 200 mls/hr Q12HR IV Last administered on 01/02/19 22:31; Start 12/29/18 at 09:00 Metronidazole 100 ml @ 100 mls/hr Q12HR IV Last administered on 01/03/19 09:07; Start 12/29/18 at 09:00 Sodium Chloride (Normal Saline Flush 3ml) 3 ml QSHIFT PRN IV AFTER MEDS AND BLOOD DRAWS; Start 12/28/18 at 19:30 Ondansetron HCl (Zofran) 4 mg PRN Q4HRS PRN IV NAUSEA/VOMITING Last adm inistered on 01/02/19 14:18; Start 12/28/18 at 19:30 Zolpidem Tartrate (Ambien) 5 mg PRN QHS PRN PO INSOMNIA Last administered on 12/31/18 21:05; Start 12/28/18 at 19:30 Acetaminophen (Tylenol) 650 mg PRN Q4HRS PRN PO TEMP OVER 100.4F OR MILD PAIN Last administered on 01/02/19 14:16; Start 12/28/18 at 19:30 Clonidine HCl (Catapres) 0.1 mg PRN Q6HRS PRN PO SBP>160 OR DBP>90; Start 12/28/18 at 19:30 Docusate Sodium (Colace) 100 mg PRN BID PRN PO CONSTIPATION; Start 12/28/18 at 19:30 Albuterol/ Ipratropium (Duoneb) 3 ml Q4HRS NEB Last administered on 01/03/19 07:11; Start 12/28/18 at 20:00 Guaifenesin (Robitussin) 200 mg PRN Q4HRS PRN PO COUGH; Start 12/28/18 at 19:30 Lorazepam (Ativan) 0.5 mg PRN Q4HRS PRN PO ANXIETY / AGITATION Last administered on 12/31/18 21:04; Start 12/28/18 at 19:30 Enoxaparin Sodium (Lovenox 40mg Syringe) 40 mg QHS SQ Last administered on 01/02/19 21:08; Start 12/28/18 at 21:00 Polyethylene Glycol (miraLAX PACKET) 17 gm BID PO Last administered on 01/02/19 08:36; Start 12/29/18 at 21:00; Stop 01/02/19 at 13:59; Status DC Lactobacillus Rhamnosus (Culturelle) 1 cap BID PO Last administered on 01/03/19 09:11; Start 12/29/18 at 21:00 Non-Formulary Medication (Dextroamphetamine/ Amphetamine (Adderall 30 Mg Tablet)) 30 mg DAILY16 PO ; Start 12/30/18 at 16:00; Stop 12/30/18 at 17:23; Status DC Non-Formulary Medication (Dextroamphetamine/ Amphetamine (Adderall 30 Mg Tablet) ) 60 mg DAILY08 PO ; Start 12/31/18 at 08:00; Status UNV Pseudoephedrine HCl (Sudafed 12-Hour) 120 mg BID PO Last administered on 01/03/19 09:11; Start 12/30/18 at 21:00 Multi-Ingred Cream/Lotion/Oil/ Oint (Artificial Tears Eye Ointment) 1 paras PRN Q1HR PRN OU DRY EYE; Start 12/30/18 at 12:00; Stop 12/30/18 at 14:26; Status DC Cetirizine HCl (ZyrTEC) 10 mg DAILY PO Last administered on 01/03/19 09:11; Start 12/30/18 at 13:00 Artificial Tears (Artificial Tears) 1 drop PRN Q15MIN PRN OU DRY EYE Last administered on 12/30/18 15:45; Start 12/30/18 at 14:30 Benzocaine (Ora-Jel) 1 paras PRN QID PRN TP ORAL PAIN Last administered on 01/03/19 09:11; Start 12/31/18 at 22:15 Gabapentin (Neurontin) 200 mg BID PO Last administered on 01/03/19 09:11; Start 01/02/19 at 09:00 Gabapentin (Neurontin) 200 mg 1X ONCE PO Last administered on 5/7/19at 18:48; Start 01/01/19 at 18:30; Stop 01/01/19 at 18:31; Status DC Polyethylene Glycol (miraLAX PACKET) 17 gm DAILY PO ; Start 01/03/19 at 09:00 Polyethylene Glycol (miraLAX PACKET) 17 gm PRN DAILY PRN PO CONSTIPATION; Start 01/02/19 at 14:00 Phenyleph/Shark Oil/Min Oil/Petrol (Preparation H) 1 paras PRN Q1HR PRN RC RECTAL PAIN Last administered on 01/03/19at 09:11; Start 01/02/19 at 16:45 Active Scripts Active Reported Zofran (Ondansetron Hcl) 4 Mg Tablet 1 Tab PO Q6HRS Mihaela-D 24 Hour Tablet (Fexofenadine/Pseudoephedrine) 1 Each Tab.er.24h 1 Tab PO DAILY Symbicort 160-4.5 Mcg Inhaler (Budesonide/Formoterol Fumarate) 10.2 Gm Hfa.aer.ad 2 Puff IH BID Adderall 30 Mg Tablet (Dextroamphetamine/Amphetamine) 30 Mg Tablet 30 Mg PO DAILY16 Adderall 30 Mg Tablet (Dextroamphetamine/Amphetamine) 30 Mg Tablet 60 Mg PO DAILY08 Vitals/I & O Vital Sign - Last 24 Hours 01/02/19 01/02/19 01/02/19 01/02/19 11:00 11:26 15:00 15:31 Temp 98.5 98.6 98.5 98.6 Pulse 63 Resp 18 18 B/P (MAP) 140/65 (90) 129/52 (77) Pulse Ox 94 94 92 O2 Delivery Room Air Room Air Room Air Room Air 01/02/19 01/02/19 01/02/19 01/02/19 19:23 19:28 23:00 23:32 Temp 98.2 97.9 98.2 97.9 Pulse 66 66 Resp 16 18 B/P (MAP) 129/72 (91) 118/68 (85) Pulse Ox 97 95 O2 Delivery Room Air Room Air Room Air Room Air 01/03/19 01/03/19 01/03/19 01/03/19 02:30 07:00 07:00 07:13 Temp 97.9 97.1 95.0 97.9 97.1 95.0 Pulse 69 89 87 Resp 17 18 18 B/P (MAP) 104/59 (74) 113/59 (77) 125/60 (81) Pulse Ox 94 92 95 100 O2 Delivery Room Air Room Air Room Air Room Air Intake and Output 01/02/19 01/02/19 01/03/19 15:00 23:00 07:00 Intake Total 200 ml 500 ml Output Total 1 ml Balance -1 ml 200 ml 500 ml ETHAN CARR MD January 03, 2019 09:31
--- NOTE | 2019-01-03 10:23 | PDOC3 ---
Discharge Summary Date of Admission: December 28, 2018 Date of Discharge: January 03, 2019 Follow-Up: 3-5 days Admitting Diagnosis comment: discharge dx Assessment/Plan IMPRESSION: 1.ACUTE Sigmoid diverticulosis with extensive mural thickening and paracolic inflammation related to the proximal to mid sigmoid colon, compatible with acute diverticulitis. The possibility of underlying colonic neoplasm cannot be excluded. 2. Interval repair of the patient's large ventral hernia since 01/25/2018. 3. UTI 4. SEPSIS 5. morbid obesity 6. tobacco abuse 7. NORMOCYTIC ANEMIA 12/30 LLQ tenderness persists 12/31 pain awakens her at high at least x 2, pain is 6/10 today, no BM 01/01 pain slow to improve 01/02 c/o inc nausea 01/03 d/c home, better, colonoscopy in 4-6 weeks per GI D/C PLANNING 35 MIN PLAN 1. sips liquids 2. IV FLUID SUPPORT 3. IV ANTIBIOTICS, PO CIPRO, FLAGYL 4. GI CONSULT 5. DVT prophylaxis 6. gi prophylaxis 7. home meds 8. blood culture 32 min pt exam d/c planning , chart review, > 50% of time spent with exam, chart review, pt care coordination Vitals Vitals Vital Signs Date Time Temp Pulse Resp B/P (MAP) Pulse Ox O2 Delivery O2 Flow Rate FiO2 01/03/19 07:13 100 Room Air 01/03/19 07:00 95.0 87 18 125/60 (81) 95.0 Physical Exam Physical Exam esr = 93 General: Alert, Oriented X3, Cooperative, No acute distress Heart: Regular rate, Normal S1, Normal S2, No murmurs Lungs: Clear, Wheezing Abdomen: Normal bowel sounds, Soft, No tenderness Extremities: No clubbing, No cyanosis Skin: No rashes, No breakdown FINAL DIAGNOSIS Problems Medical Problems: (1) Acute diverticulitis Status: Acute (2) Urinary tract infection Status: Acute Brief Hospital Course Ms. Bergman is a 58 old [sex] who presented with [ACUTE DIVERTICULITIS ] CONDITION AT DISCHARGE: Improved Discharge Medications Current Medications Fentanyl Citrate (Fentanyl 2ml Vial) 50 mcg PRN Q15MIN PRN IV PAIN GREATER THAN 3/10 Last administered on 12/28/18at 16:22; Start 12/28/18 at 14:30; Stop 12/29/18 at 14:29; Status DC Sodium Chloride 1,000 ml @ 1,000 mls/hr Q1H IV Last administered on 12/28/18at 14:37; Start 12/28/18 at 14:24; Stop 12/28/18 at 15:23; Status DC Ondansetron HCl (Zofran) 4 mg 1X ONCE IV Last administered on 12/28/18at 14:39; Start 12/28/18 at 14:30; Stop 12/28/18 at 14:31; Status DC Iohexol (Omnipaque 300 Mg/ml) 75 ml 1X ONCE IV Last administered on 12/28/18at 15:29; Start 12/28/18 at 14:45; Stop 12/28/18 at 14:46; Status DC Info (CONTRAST GIVEN -- Rx MONITORING) 1 each PRN DAILY PRN MC SEE COMMENTS; Start 12/28/18 at 14:45; Stop 12/30/18 at 14:44; Status DC Ciprofloxacin/ Dextrose 200 ml @ 200 mls/hr 1X ONCE IV Last administered on 12/28/18at 16:24; Start 12/28/18 at 16:15; Stop 12/28/18 at 17:14; Status DC Metronidazole 100 ml @ 100 mls/hr 1X ONCE IV Last administered on 12/28/18at 16:27; Start 12/28/18 at 16:15; Stop 12/28/18 at 17:14; Status DC Ondansetron HCl (Zofran) 4 mg PRN Q8HRS PRN IV NAUSEA/VOMITING; Start 12/28/18 at 16:30; Stop 12/28/18 at 19:34; Status DC Morphine Sulfate (Morphine Sulfate) 4 mg PRN Q2HR PRN IV PAIN Last administered on 12/29/18at 12:04; Start 12/28/18 at 16:30; Stop 12/29/18 at 16:29; Status DC Sodium Chloride 1,000 ml @ 125 mls/hr Q8H IV Last administered on 12/29/18at 08:17; Start 12/28/18 at 16:30; Stop 12/29/18 at 16:29; Status DC Acetaminophen (Tylenol) 650 mg PRN Q4HRS PRN PO FEVER; Start 12/28/18 at 16:30; Stop 12/28/18 at 19:35; Status DC Ciprofloxacin/ Dextrose 200 ml @ 200 mls/hr Q12HR IV Last administered on 01/02/19 22:31; Start 12/29/18 at 09:00 Metronidazole 100 ml @ 100 mls/hr Q12HR IV Last administered on 01/03/19 09:07; Start 12/29/18 at 09:00 Sodium Chloride (Normal Saline Flush 3ml) 3 ml QSHIFT PRN IV AFTER MEDS AND BLOOD DRAWS; Start 12/28/18 at 19:30 Ondansetron HCl (Zofran) 4 mg PRN Q4HRS PRN IV NAUSEA/VOMITING Last administered on 01/02/19 14:18; Start 12/28/18 at 19:30 Zolpidem Tartrate (Ambien) 5 mg PRN QHS PRN PO INSOMNIA Last administered on 12/31/18 21:05; Start 12/28/18 at 19:30 Acetaminophen (Tylenol) 650 mg PRN Q4HRS PRN PO TEMP OVER 100.4F OR MILD PAIN Last administered on 01/02/19 14:16; Start 12/28/18 at 19:30 Clonidine HCl (Catapres) 0.1 mg PRN Q6HRS PRN PO SBP>160 OR DBP>90; Start 12/28/18 at 19:30 Docusate Sodium (Colace) 100 mg PRN BID PRN PO CONSTIPATION; Start 12/28/18 at 19:30 Albuterol/ Ipratropium (Duoneb) 3 ml Q4HRS NEB Last administered on 01/03/19 07:11; Start 12/28/18 at 20:00 Guaifenesin (Robitussin) 200 mg PRN Q4HRS PRN PO COUGH; Start 12/28/18 at 19:30 Lorazepam (Ativan) 0.5 mg PRN Q4HRS PRN PO ANXIETY / AGITATION Last administered on 12/31/18 21:04; Start 12/28/18 at 19:30 Enoxaparin Sodium (Lovenox 40mg Syringe) 40 mg QHS SQ Last administered on 01/02/19 21:08; Start 12/28/18 at 21:00 Polyethylene Glycol (miraLAX PACKET) 17 gm BID PO Last administered on 01/02/19 08:36; Start 12/29/18 at 21:00; Stop 01/02/19 at 13:59; Status DC Lactobacillus Rhamnosus (Culturelle) 1 cap BID PO Last administered on 01/03/19 09:11; Start 12/29/18 at 21:00 Non-Formulary Medication (Dextroamphetamine/ Amphetamine (Adderall 30 Mg Tablet)) 30 mg DAILY16 PO ; Start 12/30/18 at 16:00; Stop 12/30/18 at 17:23; Status DC Non-Formulary Medication (Dextroamphetamine/ Amphetamine (Adderall 30 Mg Tablet)) 60 mg DAILY08 PO ; Start 12/31/18 at 08:00; Status UNV Pseudoephedrine HCl (Sudafed 12-Hour) 120 mg BID PO Last administered on 01/03/19at 09:11; Start 12/30/18 at 21:00 Multi-Ingred Cream/Lotion/Oil/ Oint (Artificial Tears Eye Ointment) 1 paras PRN Q1HR PRN OU DRY EYE; Start 12/30/18 at 12:00; Stop 12/30/18 at 14:26; Status DC Cetirizine HCl (ZyrTEC) 10 mg DAILY PO Last administered on 01/03/19 09:11; Start 12/30/18 at 13:00 Artificial Tears (Artificial Tears) 1 drop PRN Q15MIN PRN OU DRY EYE Last administered on 12/30/18at 15:45; Start 12/30/18 at 14:30 Benzocaine (Ora-Jel) 1 paras PRN QID PRN TP ORAL PAIN Last administered on 01/03/19 09:11; Start 12/31/18 at 22:15 Gabapentin (Neurontin) 200 mg BID PO Last administered on 01/03/19 09:11; Start 01/02/19 at 09:00 Gabapentin (Neurontin) 200 mg 1X ONCE PO Last administered on 01/01/19 18:48; Start 01/01/19 at 18:30; Stop 01/01/19 at 18:31; Status DC Polyethylene Glycol (miraLAX PACKET) 17 gm DAILY PO ; Start 01/03/19 at 09:00 Polyethylene Glycol (miraLAX PACKET) 17 gm PRN DAILY PRN PO CONSTIPATION; Start 01/02/19 at 14:00 Phenyleph/Shark Oil/Min Oil/Petrol (Preparation H) 1 paras PRN Q1HR PRN RC RECTAL PAIN Last administered on 01/03/19at 09:11; Start 01/02/19 at 16:45 Active Scripts Active Reported Zofran (Ondansetron Hcl) 4 Mg Tablet 1 Tab PO Q6HRS Mihaela-D 24 Hour Tablet (Fexofenadine/Pseudoephedrine) 1 Each Tab.er.24h 1 Tab PO DAILY Symbicort 160-4.5 Mcg Inhaler (Budesonide/Formoterol Fumarate) 10.2 Gm Hfa.aer.ad 2 Puff IH BID Adderall 30 Mg Tablet (Dextroamphetamine/Amphetamine) 30 Mg Tablet 30 Mg PO DAILY16 Adderall 30 Mg Tablet (Dextroamphetamine/Amphetamine) 30 Mg Tablet 60 Mg PO DAILY08 Vital Signs Vital Signs Date Time Temp Pulse Resp B/P (MAP) Pulse Ox O2 Delivery O2 Flow Rate FiO2 01/03/19 07:13 100 Room Air 01/03/19 07:00 95.0 87 18 125/60 (81) 95.0 Allergies Allergies Coded Allergies Type Severity Reaction Last Updated Verified cephalexin Allergy Severe Nausea and Vomiting 02/05/18 Yes Sulfa (Sulfonamide Antibiotics) Allergy Intermediate 12/31/18 Yes clindamycin Allergy Intermediate 01/25/18 Yes latex Allergy Intermediate 12/31/18 Yes Disposition/Orders: D/C to Home Patient Instructions D/C PLANNING 35 MIN ETHAN CARR MD January 03, 2019 10:23
[2019-01-03] MEDS ORDERED: LACT1CAP19 PO (10:24)
[2019-01-03] MEDS ORDERED: METR500T PO (10:26)
[2019-01-03] MEDS ORDERED: CIPR500T94 PO (10:26)
--- NOTE | 2019-01-03 10:27 | DISCH ---
DISCHARGE INSTRUCTIONS Condition on Discharge Condition on Discharge: Stable Activity After Discharge Activity Instructions for Disc: Resume previous activity, Avoid exertion Lifting Instructions after Dis: No heavy lifting, No pulling or pushing Exercise Instruction after Dis: Walk 10 min, 3 x per day Driving Instructions after Dis: Do not drive Diet after Discharge Diet after Discharge: Regular Contacting the DR. after DC Call your doctor for: If your condition worsens ETHAN CARR MD January 03, 2019 10:27
[2019-01-03 11:00] VITALS: BP 125/67
--- NOTE | 2019-01-03 12:32 | PDOC ---
Subjective: Subjective: Plans to go home today, she's a little worried that she's too weak but she does feel better overall and her niece is coming to help her. Has questions about diet, fiber, etc. Objective: Vital Signs: Vital Signs Date Time Temp Pulse Resp B/P (MAP) Pulse Ox O2 Delivery O2 Flow Rate FiO2 01/03/19 11:22 98 Room Air 01/03/19 11:00 97.7 71 18 125/67 (86) 97.7 PE: GEN: NAD - eating lunch, appears comfortable LUNGS: room air NEURO/PSYCH: A & O 3 A/P: Diverticulitis -- DC per primary. Follow-up for outpt colonoscopy - she will be gone in February but wants to schedule for March - our office will arrange. TAMANNA WATSON January 03, 2019 12:32
[2019-01-03 15:00] VITALS: BP 100/73
--- NOTE | 2019-01-03 16:30 | NUR ---
Discharge Note: АНДРЕЙ HEATH Discharge instructions and discharge home medications reviewed with Patient and a copy given. All questions have been answered and understanding verbalized. The following instructions and handouts were given: dIVERTICULITIS, DIET, abt Discontinued lines and drains: PERIPHERAL IV. Patient discharged to Home or Self Care with[facility]nel[facility]
== END 2019-01-03 16:31 | disposition home or self-care (01) | DRG 872 ==
LOC: ER 13:39 → 5 NORTH 16:29 → ER 17:47
PROVIDERS: ADMIT Family Medicine; ATTEND Family Medicine
DX: A41.9 Sepsis, unspecified organism (principal); K57.32 Diverticulitis of large intestine without perforation or abscess without bleeding; N39.0 Urinary tract infection, site not specified; E66.01 Morbid (severe) obesity due to excess calories; J44.9 Chronic obstructive pulmonary disease, unspecified; M79.7 Fibromyalgia; K58.9 Irritable bowel syndrome, unspecified; F17.210 Nicotine dependence, cigarettes, uncomplicated; D64.9 Anemia, unspecified; G89.29 Other chronic pain; Z90.710 Acquired absence of both cervix and uterus; Z90.49 Acquired absence of other specified parts of digestive tract; Z88.2 Allergy status to sulfonamides; Z88.1 Allergy status to other antibiotic agents; Z91.040 Latex allergy status; Z82.49 Family history of ischemic heart disease and other diseases of the circulatory system; Z68.39 Body mass index [BMI] 39.0-39.9, adult
CPT/HCPCS: 36415; 71046; 74177; 80048; 80053; 81001; 82607; 83540; 83550; 83605; 83690; 85025; 85651; 87040; 87045; 87086; 94640; 94760; 96365; J0744; J1650; J2270; J2405; J3010; J3490; J7030; J7620; Q9967; 99285-25

== ENCOUNTER → 2019-12-02 | Outpatient (CLI) | payer OTHER ==
[~2019-12-02] MED LIST changes: -CETI10TA22 PO; +CETI10TA24 PO; +CIPR500T94 PO; +FEXO1TAB31 PO; +LACT1CAP19 PO; +METR500T PO; +ONDA4TAB7 PO; -POTA10TA12 PO; +POTASSIUM CHLO10 ME1 PO
--- NOTE | 2019-12-02 14:15 | KCIC ---
Right fourth finger: Reason for examination: Hit fourth finger on a spinning ceiling fan blade with swelling. No acute fracture or dislocation is seen. There is hypertrophic degenerative change with fusion at the distal interphalangeal joint. Remaining joint spaces are maintained. There is soft tissue swelling present. IMPRESSION: Soft tissue swelling of the fourth digit. Hypertrophic spurring with fusion at the distal interphalangeal joint. Lumbar spine 4 views: Reason for examination: Progressive low back pain for over 2 weeks with right hip pain. There is a rotatory thoracolumbar scoliosis with convexity to the right. No acute fracture or subluxation is evident. The posterior elements appear to be intact. The intervertebral discs show mild narrowing at the L3-4 and L4-5 levels and some vacuum disc phenomena at the L2-3 disc level. No abnormality seen at the sacrum or sacroiliac joints. IMPRESSION: Rotatory thoracolumbar scoliosis with convexity to the right. Mild disc space narrowing at the L3-4 and L4-5 levels and vacuum disc at the L2-3 level. Electronically signed by: Roxann Armenta MD (12/02/2019 2:12 PM) [id number]
== END ==
LOC: KCIC 12:38
PROVIDERS: ATTEND Physician Assistant
DX: M41.85 Other forms of scoliosis, thoracolumbar region (principal); M48.061 Spinal stenosis, lumbar region without neurogenic claudication; M77.9 Enthesopathy, unspecified; M25.441 Effusion, right hand
CPT/HCPCS: 72100; 73140